=== PATIENT | female | born 1945 | race African-American/Black ===

== ENCOUNTER 2017-08-13 08:42 | Observation (INO) | payer OTHER ==
[~2017-08-13] VITALS: Ht 167.6 cm; Wt 89.8 kg
[~2017-08-13 08:42] MED LIST: ACETAMINOPHEN325 M1 PO; AMITIZA24 MCG PO; ATENOLOL25 MG PO; ATENOLOL50 MG PO; ATORVASTATIN CA20 MG PO; Aspirin PO; BENTYL10 MG PO; CATAPRES-TTS 21 EACH PO; COZAAR100 MG PO; CYMBALTA30 MG PO; ESIDRIX25 MG PO; FUROSEMIDE40 MG PO; GABAPENTIN300 MG PO; GABAPENTIN600 MG PO; HEMOCYTE PLUS1 EACH PO; HYDROCHLOROTHIA25 MG PO; HYDROCODON-ACE1 EA12 PO; ISOSORBIDE MONO30 MG PO; K DUR10 MEQ PO; LASIX40 MG PO; LINZESS PO; LIPITOR20 MG PO; LOSARTAN POTAS100 MG PO; LOVENOX60 MG/0.6 SC; MELOXICAM7.5 MG PO; METOCLOPRAMIDE10 MG PO; MORPHINE SULFA100 MG PO; NAPROXEN500 MG PO; OMEPRAZOLE40 MG PO; ONDANSETRON HCL8 MG PO; POTASSIUM CHLO10 ME1 PO; POTASSIUM CHLO10 MEQ PO; TRAMADOL HCL50 M1 PO; TRAZODONE HCL50 MG PO; VALACYCLOVIR1000 MG PO; Z RANITIDINE HCL PO; Z.0.ACYCLOVIR400 MG PO; Z.0.GABAPENTIN300 MG PO; Z.0.ISOSORBIDE MONO3 PO; Z.0.METOPROLOL SUCC5 PO; Z.0.SERTRALINE HCL10 PO; Z.0.SIMVASTATIN80 MG PO; Z.1.TIZANIDINE HCL4 PO; ZOFRAN ODT4 MG PO
--- OUTSIDE RECORDS SUMMARY | 2017-08-13 08:47 | XMS REPORT ---
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 Active Not available atorvastatin 40 mg tablet TAKE ONE TABLET BY MOUTH ONCE A DAY. Active Not available ciprofloxacin 500 mg tablet Completed 02/12/2016 clindamycin HCl 150 mg capsule Completed 02/12/2016 clotrimazole 1 % topical cream Completed 10/18/2016 Clotrimazole-3 2 % vaginal cream Insert 1 applicatorful every day by vaginal route at bedtime for 3 days. Completed 10/18/2016 dicyclomine 10 mg capsule Completed 12/06/2016 01/19/2017 furosemide 20 mg tablet Completed 03/11/2016 furosemide 40 mg tablet TAKE ONE TABLET BY MOUTH EVERY MORNING. Active Not available gabapentin 600 mg tablet Completed 07/03/2017 hydrochlorothiazide 25 mg tablet Completed 03/11/2016 hydrocodone 7.5 mg-acetaminophen 325 mg tablet Completed 02/12/2016 isosorbide mononitrate ER 30 mg tablet,extended release 24 hr Active Not available Lidocaine Viscous 2 % mucosal solution Active Not available Linzess 145 mcg capsule TAKE ONE CAPSULE BY MOUTHEVERY DAY. Active Not available loperamide 2 mg capsule Completed 07/03/2017 loperamide 2 mg tablet Take 2 tablets 3 times a day by oral route as needed for 10 days. Completed 05/19/2016 losartan 100 mg tablet TAKE ONE TABLET BY MOUTH ONCE A DAY. Active Not available meloxicam 15 mg tablet Completed 03/11/2016 methylprednisolone 4 mg tablets in a dose pack Completed 02/12/2016 metoprolol succinate ER 50 mg tablet,extended release 24 hr Take 1 tablet every day by oral route at bedtime for 90 days. Completed morphine ER 100 mg tablet,extended release Active Not available Movantik 25 mg tablet Completed 01/19/2017 naproxen 500 mg tablet Completed 03/11/2016 nitrofurantoin monohydrate/macrocrystals 100 mg capsule Completed 2016 omeprazole 40 mg capsule,delayed release Take 1 capsule every day by oral route for 90 days. Active Not available ondansetron HCl 4 mg tablet Completed 02/12/2016 ondansetron HCl 8 mg tablet Completed 02/12/2016 polyethylene glycol 3350 17 gram/dose oral powder Active Not available potassium chloride ER 10 mEq tablet,extended release Active Not available promethazine-DM 6.25 mg-15 mg/5 mL syrup take 1 or 2 tsp every 6 hours as needed for cough Completed 07/03/2017 silver sulfadiazine 1 % topical cream Completed 03/11/2016 sulfamethoxazole 400 mg-trimethoprim 80 mg tablet Completed 02/12/2016 terconazole 0.8 % vaginal cream Completed 10/18/2016 trazodone 100 mg tablet Active Not available trazodone 150 mg tablet Completed 02/12/2016 trazodone 50 mg tablet Active Not available TriLyte With Flavor Packets 420 gram oral solution Completed 12/06/2016 Tylenol Arthritis Pain 650 mg tablet,extended release Take 2 tablets every 8 hours by oral route for 7 days. Completed 2016 valacyclovir 1 gram tablet Completed 03/01/2016 valacyclovir 500 mg tablet Active Not available Problems Name Status Onset Date Source Pure Hypercholesterolemia Active 01/06/2015 History Alpha Trait Thalassemia Active 01/06/2015 History Hypertensive Heart Disease Active 01/06/2015 History Temporomandibular Joint Disorder Active 01/06/2015 History Gastroesophageal Reflux Disease without Esophagitis Active 01/06/2015 History Constipation Active 01/06/2015 History Idiopathic Osteoarthritis Active 04/14/2015 History Screening for Disorder Unknown 04/14/2015 History Pain in Right Knee Unknown 04/14/2015 History History of Total Knee Arthroplasty Active 08/18/2015 History Herpesvirus Infection Active 03/01/2016 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 Simple Renal Cyst Active 04/22/2016 Decreased Blood Leukocyte Number Active 05/20/2016 Body Mass Index 30+ - Obesity Unknown 10/18/2016 Procedures Date Name Performed by Carpal Tunnel Surgery Information not available Cataract Surgery Complex Information not available Cholecystectomy Information not available Hysterectomy (Total) Information not available 05/19/2016 Bone Density [facility] [address] [place] [address] (Work Place) 05/19/2016 MAMMO, Screening, Bilateral HamerZAPITANO ([facility]) [address] [place] [address] (Work Place) Lab Results Date Name Specimen Result Interpretation Description Value Range Status Address 01/19/2017 Lipid Panel, Serum Normal Cholesterol, Total 177 mg/dL <200 mg/dL Final [facility]: [address] We[address] Normal HDL Cholesterol 79 mg/dL >50 mg/dL Final [facility]: [address] qu[address] Normal Triglycerides 64 mg/dL <150 mg/dL Final [facility]: [address] Normal LDL-cholesterol 84 mg/dL (calc) Final [facility]: [address] Normal Chol/hdlc Ratio 2.2 (calc) <5.0 (calc) Final [facility]: [address] qu[address] Normal Non HDL Cholesterol 98 mg/dL (calc) <130 mg/dL (calc) Final [facility]: [address] Padmini Vicente [address] [place] [address] 01/19/2017 CMP, Serum or Plasma High Glucose 101 mg/dL 65-99 mg/ dL Final [facility]: [address] quinton [address] Normal Urea Nitrogen (BUN) 15 mg/dL 7-25 mg/dL Final [facility]: [address] High Creatinine 1.06 mg/dL 0.60-0.93 mg/dL Final [facility]: [address] Low eGFR Non-afr. Citizen Of [place] 52 mL/min/1.73m2 > or=60 mL/min/ 1.73m2 Final [facility]: [address] qu[address] Normal eGFR 60 mL/min/1.73m2 > or=60 mL/min/ 1.73m2 Final [facility]: [address] [place] Normal BUN/creatinine Ratio 14 (calc) 6-22 (calc) Final [facility]: [address] Valentine, [place] Normal Sodium 145 mmol/L 135-146 mmol/L Final [facility] [facility] Potassium 3.6 mmol/L 3.5-5.3 mmol/L Final [facility]: [address] [facility] Chloride 107 mmol/L 98-110 mmol/L Final [facility]: [address] [facility] Carbon Dioxide 30 mmol/L 20-31 mmol/L Final [facility]: [address] [facility] Calcium 9.5 mg/dL 8.6-10.4 mg/dL Final [facility]: [address] [facility] Protein, Total 6.7 g/dL 6.1-8.1 g/dL Final [facility] [address] [facility] Albumin 4.0 g/dL 3.6-5.1 g/dL Final [facility] [address] [facility] Globulin 2.7 g/dL (calc) 1.9-3.7 g/dL (calc) Final [facility] [address] [facility] Albumin/globulin Ratio 1.5 (calc) 1.0-2.5 (calc) Final [facility]: [address] [facility] Bilirubin, Total 0.7 mg/dL 0.2-1.2 mg/dL Final [facility]: [address] [facility] Alkaline Phosphatase 85 U/L 33-130 U/L Final [facility]: [address] [facility] Normal Ast 18 U/L 10-35 U/L Final [facility]: [address] [facility] Normal Alt 16 U/L 6-29 U/L Final [facility]: [address] Padmin[address] Valentine [place] 01/19/2017 CBC W/ Auto Diff Low White Blood Cell Count 3.1 thousand /uL 3.8-10.8 thousand/uL Final [facility]: [address] Normal Red Blood Cell Count 4.22 million/uL 3.80-5.10 million/ uL Final [facility]: [address] Low Hemoglobin 10.2 g/dL 11.7-15.5 g/dL Final [facility]: [address] Low Hematocrit 34.3 % 35.0-45.0 % Final [facility]: [address] Normal Mcv 81.3 fL 80.0-100.0 fL Final [facility]: [address] Padmini Valentine, [place] Low Mch 24.2 pg 27.0-33.0 pg Final [facility]: [address] Padmini Valentine, [place] Low Mchc 29.7 g/dL 32.0-36.0 g/dL Final [facility]: [address] Normal Rdw 13.4 % 11.0-15.0 % Final [facility]: [address] Normal Platelet Count 156 thousand/uL 140-400 thousand/uL Final [facility]: [address] Normal Mpv 11.8 fL 7.5-12.5 fL Final [facility]: [address] Normal Absolute Neutrophils 1869 cells/uL 2493-5435 cells/uL Final [facility]: [address] Normal Absolute Lymphocytes 942 cells/uL 850-3900 cells/uL Final [facility]: [address] Normal Absolute Monocytes 260 cells/uL 200-950 cells/uL Final [facility]: [address] Padmini Valentine [place] Absolute Eosinophils 9 cells/uL 15-500 cells/uL Final [facility]: [address] Padmin[address] Valentine [place] Normal Absolute Basophils 19 cells/uL 0-200 cells/uL Final [facility]: [address] Normal Neutrophils 60.3 % Final [facility]: [address] Normal Lymphocytes 30.4 % Final [facility]: [address] Padmin[address] Valentine [place] Normal Monocytes 8.4 % Final [facility]: [address] Padmin[address] quinton [place] [address], [place] Normal Eosinophils 0.3 % Final [facility]: [address] Padmin[address] quinton [place] [address], [place] Normal Basophils 0.6 % Final [facility]: [address] Padmin[address] We[address] [place] [address], [place] 09/21/2016 Culture, Urine ABNORMAL Culture, Urine, Routine Final [facility]: [address] [place] [address], [place] Lipid Panel, Serum Normal Cholesterol, Total 164 mg/dL 125-200 mg/dL Final [facility]: [address], [place] Normal HDL Cholesterol 75 mg/dL > or=46 mg/dL Final [facility]: [address], [place] Normal Triglycerides 77 mg/dL <150 mg/dL Final [facility]: [address], [place] Normal LDL-cholesterol 74 mg/dL (calc) <130 mg/dL (calc) Final [facility]: [address], [place] Normal Chol/hdlc Ratio 2.2 (calc) < or=5.0 (calc) Final [facility]: [address], [place] Normal Non HDL Cholesterol 89 mg/dL (calc) Final [facility]: [address], [place] CMP, Serum or Plasma High Glucose 105 mg/dL 65-99 mg/dL Final [facility]: [address], [place] Normal Urea Nitrogen (BUN) 12 mg/dL 7-25 mg/dL Final [facility]: [address], [place] High Creatinine 0.97 mg/dL 0.60-0.93 mg/dL Final [facility]: [address], [place] Low eGFR Non-afr. Citizen Of [place] 58 mL/min/1.73m2 > or=60 mL/min/ 1.73m2 Final [facility]: [address], [place] Normal eGFR 68 mL/min/1.73m2 > or=60 mL/min/ 1.73m2 Final [facility]: [address], [place] Normal BUN/creatinine Ratio 12 (calc) 6-22 (calc) Final [facility]: [address], [place] Normal Sodium 141 mmol/L 135-146 mmol/L Final [facility]: [address] [place] Normal Potassium 4.6 mmol/L 3.5-5.3 mmol/L Final [facility]: [address], [place] Normal Chloride 102 mmol/L 98-110 mmol/L [facility]: [address] [facility], [place] Normal Carbon Dioxide 30 mmol/L 20-31 mmol/L Final [facility]: [address] [facility], [place] Normal Calcium 9.4 mg/dL 8.6-10.4 mg/dL Final [facility]: [address] [facility], [place] Normal Protein, Total 7.1 g/dL 6.1-8.1 g/dL Final [facility]: [address], [place] Normal Albumin 4.1 g/dL 3.6-5.1 g/dL [facility]: [address] [place] [address], [place] Normal Globulin 3.0 g/dL (calc) 1.9-3.7 g/dL (calc) Final [facility]: [address] [place] [address], [place] Normal Albumin/globulin Ratio 1.4 (calc) 1.0-2.5 (calc) [facility]: [address] [facility], [place] Normal Bilirubin, Total 0.6 mg/dL 0.2-1.2 mg/dL [facility]: [address] [place] [address], [place] Normal Alkaline Phosphatase 85 U/L 33-130 U/L Final [facility]: [address] [place] [address], [place] Normal Ast 14 U/L 10-35 U/L [facility]: [address] [place] [address], [place] Normal Alt 8 U/L 6-29 U/L [facility]: [address] [facility], [place] CBC W/ Auto Diff Low White Blood Cell Count 3.2 thousand/uL 3.8- 10.8 thousand/uL Final [facility]: [address] [place] [address], [place] Normal Red Blood Cell Count 4.34 million/uL 3.80-5.10 million/ uL Final [facility]: [address], [place] Low Hemoglobin 10.4 g/dL 11.7-15.5 g/dL Final [facility]: [address], [place] Low Hematocrit 33.5 % 35.0-45.0 % Final [facility]: [address], [place] Low Mcv 77.1 fL 80.0-100.0 fL Final [facility]: [address], [place] Low Mch 23.9 pg 27.0-33.0 pg Final [facility]: [address], [place] Low Mchc 31.0 g/dL 32.0-36.0 g/dL Final [facility]: [address], [place] High Rdw 17.5 % 11.0-15.0 % Final [facility]: [address], [place] Normal Platelet Count 145 thousand/uL 140-400 thousand/uL Final [facility]: [address], [place] Normal Mpv 10.1 fL 7.5-12.5 fL Final [facility]: [address], [place] Normal Absolute Neutrophils 1917 cells/uL 9077-7386 cells/uL Final [facility]: [address], [place] Normal Absolute Lymphocytes 938 cells/uL 850-3900 cells/uL Final [facility]: [address], [place] Normal Absolute Monocytes 330 cells/uL 200-950 cells/uL Final [facility]: [address], [place] Normal Absolute Eosinophils 16 cells/uL 15-500 cells/uL Final [facility]: [address], [place] Normal Absolute Basophils 0 cells/uL 0-200 cells/uL Final [facility]: [address], [place] Normal Neutrophils 59.9 % Final [facility]: [address], [place] Normal Lymphocytes 29.3 % Final [facility]: [address], [place] Normal Monocytes 10.3 % Final [facility]: [address], [place] Normal Eosinophils 0.5 % Final [facility]: [address], [place] Normal Basophils 0.0 % Final [facility]: [address], [place] T4, Total, Serum Normal T4 (Thyroxine), Total 8.2 mcg/dL 4.5- 12.0 mcg/dL Final [facility] Lab: [address] [facility], [place] TSH, Serum or Plasma Normal Tsh 1.12 mIU/L 0.40-4.50 mIU/L Final [facility] Lab: [address], [place] Urinalysis, Dipstick Color Color dark yellow [facility]: [address] [facility] [address], [place] Color Appearance cloudy [facility]: [address] [facility] [address], [place] Color Glucose negative [facility]: [address] [facility] [address], [place] Color Bilirubin negative [facility]: [address] [facility] [address], [place] Color Ketones negative [facility]: [address] [facility] [address], [place] Color Specific [place] 1.030 [facility]: [address] [facility] [address], [place] Color Blood moderate [facility]: [address] [facility] [address], [place] Color PH 5.5 [facility]: [address] [facility] [address], [place] Color Protein 300 [facility]: [address] [facility] [address], [place] Color Urobilinogen 0.2 [facility]: [address] [facility] [address], [place] Color Nitrites negative [facility]: [address] [facility] [address], [place] Color Leukocytes small [facility]: [address] [facility] [address], [place] Color Note [facility]: [address] [facility] [address], [place] Past Encounters 07/03/2017 Hypertensive Heart Disease; Gastroesophageal Reflux Disease without Esophagitis ; Pure Hypercholesterolemia; Pneumococcal Vaccination; Constipation; Dependent Edema PABLITO Kim: [address] [facility], [address] [address], Ph. 03/28/2017 Body Mass Index 30+ - Obesity; Hypertensive Heart Disease; Temporomandibular Joint Disorder; Diarrhea; Gastroesophageal Reflux Disease without Esophagitis; Insomnia Disorder Related to Known Organic Factor; Herpesvirus Infection; Aphthous Ulcer of Mouth; Pure Hypercholesterolemia; Constipation; Opioid Dependence; Bilateral Atherosclerosis of Arteries of Lower Limbs; Common Cold Silvano Raya MD: [address] [facility], [address] [address], Ph. 01/19/2017 Hypertensive Heart Disease; Pure Hypercholesterolemia; Diarrhea; Gastroesophageal Reflux Disease without Esophagitis; Aphthous Ulcer of Mouth; Insomnia Disorder Related to Known Organic Factor; Immunization; Constipation JORGE Parikh: [address] [address], Ph. [phone] 12/06/2016 Temporomandibular Joint Disorder; Drug-induced Constipation PABLITO Ramirez: [address] [address], Ph. 10/18/2016 Temporomandibular Joint Disorder; Body Mass Index 30+ - Obesity; Constipation Silvano Raya MD: [address] [address], Ph. 09/21/2016 Candidiasis of Vagina; Aphthous Ulcer of Mouth; Dysuria JORGE Parikh: [address] [address], Ph. [phone] 08/08/2016 Diarrhea Silvano Raya MD: [address] [address], Ph. 07/20/2016 Hypertensive Heart Disease; Pure Hypercholesterolemia; Temporomandibular Joint Disorder; Pain in Right Knee; Insomnia Disorder Related to Known Organic Factor ; Drug-induced Constipation Silvano Raya MD: [address] [address], Ph. 07/05/2016 Hypertensive Heart Disease; Pure Hypercholesterolemia; Temporomandibular Joint Disorder JORGE Parikh: [address] [address], Ph. [phone] 07/01/2016 Filippo Higuerat: [address] [address], Ph. 05/25/2016 Filippo Higuerat: [address] [address], Ph. 05/20/2016 Emma Raya: 9055 [facility], [place] [address], [place] [address], Ph. 05/19/2016 Adult Health Examination; Chronic Constipation; Temporomandibular Joint Disorder ; Anemia; Hypertensive Heart Disease; Pain in Right Knee; History of Total Knee Arthroplasty; Alpha Trait Thalassemia; Gastroesophageal Reflux Disease without Esophagitis; Insomnia Disorder Related to Known Organic Factor; Idiopathic Osteoarthritis; Pure Hypercholesterolemia; Neoplasm of Adrenal Gland; Screening for Osteoporosis; Screening for Malignant Neoplasm of Breast; Advance Directive Discussed with Patient; Body Mass Index 25-29 - Overweight Silvano Raya MD: [address] [address], Ph. 05/09/2016 Follow-up Visit; Gastroesophageal Reflux Disease without Esophagitis; Chronic Constipation; Diarrhea Silvano Raya MD: [address]8119 [facility], [address] [address], Ph. 05/06/2016 Emma Raya: 9055 [facility], [address] [address], Ph. [phone] 04/21/2016 Pain in Right Knee; Opioid Dependence PABLITO Ramirez: [address] [facility], [address] [address], Ph. 03/11/2016 Impacted Cerumen; Screening Colonoscopy PABLITO Ramirez: [address] [facility], [address] [address], Ph. 03/01/2016 Follow-up Visit; Herpesvirus Infection Silvano Raya MD: 33759 [facility], [address] [address], Ph. 02/26/2016 Emma Raya: [address] [address], Ph. [phone] 02/19/2016 Temporomandibular Joint Disorder Peter Jaime MD: 94498 [facility], [address] [address], Ph. 02/12/2016 Posttreatment Pain; Hypertensive Heart Disease; History of Total Knee Arthroplasty; Pruritic Rash Reina GordonJACIELP: [address] [facility], [address], [place] [address], Ph. Social History Smoking Status Never Smoker Vaccine List Vaccine Type influenza, high dose seasonal 01/19/20170.5 mL influenza, injectable, quadrivalent 12/14/2015 influenza, seasonal, injectable 12/16/2013 12/12/2014 Plan of Care Patient Instructions It was good to see you in the office today for your Medicare Annual Wellness Visit. You have been provided some information on healthy nutrition, including a diet rich in fruits and vegetables, minimizing simple carbohydrates, salt, and saturated fats. I want to encourage regular cardiovascular exercise such as walking at least 30 minutes daily, 5 times per week. Please remember to schedule any preventive health measures that we talked about today. You have also been provided education on fall prevention and community- based lifestyle interventions to help reduce health risks and promote healthy living in your [employer] folder. 05/06/2016-Called patient on [phone] and [phone] and LVM to return call to office. Advised patient to call office if she has any fever, n/v, diarrhea, diaphoresis , abdominal pain, dizziness, weakness, or fatique. Reminders Provider Appointments None recorded. Lab None recorded. Referral None recorded. Procedures None recorded. Surgeries None recorded. Imaging None recorded. Vitals 07/03/2017 11:30AM Est Patient Height Weight BMI Blood Pressure 5 ft 6 in 189 lbs 30.5 kg/m2 123/63 mm[Hg] 03/28/2017 09:15AM Est Patient Height Weight BMI Blood Pressure 5 ft 6 in 204 lbs 32.9 kg/m2 126/72 mm[Hg] 01/19/2017 10:00AM Est Patient Height Weight BMI Blood Pressure 5 ft 6 in 204.2 lbs 33 kg/m2 (1) 154/82 mm[Hg] (2) 159/88 mm[Hg] 12/06/2016 02:30PM Est Patient Height Weight BMI Blood Pressure 5 ft 6 in 199.2 lbs 32.2 kg/m2 110/64 mm[Hg] 10/18/2016 09:30AM Est Patient Height Weight BMI Blood Pressure 5 ft 6 in 197.8 lbs 31.9 kg/m2 152/87 mm[Hg] 09/21/2016 03:00PM Est Patient Height Weight BMI Blood Pressure 5 ft 10 in 200 lbs 28.7 kg/m2 121/67 mm[Hg] 07/20/2016 04:15PM Est Patient Height Weight BMI Blood Pressure 5 ft 10 in 198.8 lbs 28.5 kg/m2 144/81 mm[Hg] 07/05/2016 09:00AM Est Patient Height Weight BMI Blood Pressure 5 ft 10 in 202.4 lbs 29 kg/m2 144/72 mm[Hg] 05/19/2016 10:00AM LEAD SUSTAINABILITY SPECIALIST/EST CPX Height Weight BMI Blood Pressure 5 ft 10 in 204.2 lbs 29.3 kg/m2 126/76 mm[Hg] 05/09/2016 09:00AM TCM - High Risk Height Weight BMI Blood Pressure 5 ft 10 in 204.8 lbs 29.4 kg/m2 153/73 mm[Hg] 04/21/2016 09:15AM Est Patient Height Weight BMI Blood Pressure 5 ft 10 in 210 lbs 30.1 kg/m2 154/73 mm[Hg] 03/11/2016 10:00AM Est Patient Height Weight BMI Blood Pressure 5 ft 10 in 210 lbs 30.1 kg/m2 135/66 mm[Hg] 03/01/2016 02:00PM TCM - High Risk Height Weight BMI Blood Pressure 5 ft 10 in 205.8 lbs 29.5 kg/m2 123/61 mm[Hg] 02/19/2016 08:30AM Est Patient Height Weight BMI Blood Pressure 5 ft 10 in 208.6 lbs 29.9 kg/m2 136/65 mm[Hg] 02/12/2016 09:00AM Est Patient Height Weight BMI Blood Pressure 5 ft 10 in 207 lbs 29.7 kg/m2 142/72 mm[Hg] 08/18/2015 Height Weight BMI Blood Pressure 5 ft 10 in 222 lbs 31.85 kg/m2 116/70 mm[Hg] 07/07/2015 Height Weight BMI 5 ft 10 in 228.6 lbs 32.80 kg/m2 07/07/2015 Blood Pressure 111/59 mm[Hg] 06/18/2015 Height Weight BMI Blood Pressure 5 ft 10 in 231.2 lbs 33.17 kg/m2 139/68 mm[Hg] 06/09/2015 Height Weight BMI Blood Pressure 5 ft 10 in 236.41 lbs 33.92 kg/m2 124/72 mm[Hg] 05/20/2015 Height Weight BMI Blood Pressure 5 ft 10 in 236.4 lbs 33.92 kg/m2 127/71 mm[Hg] 04/14/2015 Height Weight BMI Blood Pressure 5 ft 10 in 235 lbs 33.72 kg/m2 120/60 mm[Hg] 03/25/2015 Height Weight BMI Blood Pressure 5 ft 10 in 238.6 lbs 34.23 kg/m2 137/73 mm[Hg] 03/17/2015 Height Weight BMI Blood Pressure 5 ft 10 in 244 lbs 35.01 kg/m2 132/73 mm[Hg] 03/09/2015 Height Weight BMI Blood Pressure 5 ft 10 in 244.2 lbs 35.04 kg/m2 124/58 mm[Hg] 02/16/2015 Height Weight BMI Blood Pressure 5 ft 10 in 239.2 lbs 34.32 kg/m2 130/76 mm[Hg] 01/06/2015 Height Weight BMI Blood Pressure 5 ft 10 in 245.4 lbs 35.21 kg/m2 132/71 mm[Hg] 12/12/2014 Height Weight BMI Blood Pressure 5 ft 10 in 249.4 lbs 35.78 kg/m2 126/78 mm[Hg] 11/11/2014 Height Weight BMI Blood Pressure 5 ft 10 in 248.6 lbs 35.67 kg/m2 140/80 mm[Hg] 10/08/2014 Height Weight BMI Blood Pressure 5 ft 10 in 249.2 lbs 35.75 kg/m2 138/64 mm[Hg] 09/02/2014 Height Weight BMI Blood Pressure 5 ft 10 in 255.6 lbs 36.67 kg/m2 130/60 mm[Hg] 07/10/2014 Height Weight BMI Blood Pressure 5 ft 10 in 260 lbs 37.30 kg/m2 130/74 mm[Hg] 06/11/2014 Height Weight BMI Blood Pressure 5 ft 10 in 255.2 lbs 36.61 kg/m2 140/80 mm[Hg] 05/12/2014 Height Weight Blood Pressure 5 ft 10 in 266 lbs 140/62 mm[Hg] 05/12/2014 BMI 38.16 kg/m2 04/29/2014 Height Weight BMI Blood Pressure 5 ft 10 in 259.6 lbs 37.24 kg/m2 140/70 mm[Hg] 04/02/2014 Height Weight BMI Blood Pressure 5 ft 10 in 265.4 lbs 38.08 kg/m2 128/78 mm[Hg] 02/18/2014 Height Weight BMI Blood Pressure 5 ft 10 in 266 lbs 38.16 kg/m2 130/80 mm[Hg] 12/16/2013 Height Weight BMI Blood Pressure 5 ft 10 in 265.4 lbs 38.08 kg/m2 130/60 mm[Hg] 10/31/2013 Height Weight 5 ft 10 in 262.2 lbs 07/31/2013 Height Weight 5 ft 10 in 271 lbs 06/24/2013 Height Weight 5 ft 10 in 271 lbs 05/31/2013 Height Weight 5 ft 10 in 268.4 lbs 04/01/2013 Height Weight 5 ft 10 in 268.2 lbs 03/01/2013 Height Weight 5 ft 10 in 270.8 lbs
[2017-08-13] MEDS ORDERED: SODIUM CHLORIDE 0.9% 1000ML 1,000 ML IV STA (09:56)
[2017-08-13] MEDS ORDERED: ONDANSETRON HCL 4 MG ORAL DISINTEGRATING TAB PO ONE (10:00)
[2017-08-13] MEDS ORDERED: KETOROLAC TROMETHAMINE 30 MG/ML VIAL IV NR (10:00)
[2017-08-13 10:11] LABS: CLARITY,URINE SL CLOUDY (CLEAR); COLOR,URINE YELLOW (YELLOW); KETONES,URINE TRACE (NEGATIVE); LEUKOCYTE ESTERASE ,URINE TRACE (NEGATIVE); NITRITE,URINE NEGATIVE (NEGATIVE); PROTEIN,URINE DIPSTICK 2+ (NEGATIVE); URINE UROBILINOGEN 0.2 mg/dL (0.2 - 1)
[2017-08-13 10:12] LABS: BILIRUBIN,URINE 1+ (NEGATIVE)
[2017-08-13 10:31] LABS: BACTERIA,URINE FEW /HPF; EPITHELIAL CELLS,URINE FEW /LPF; RBC,URINE 0-5 /HPF (0-5)
[2017-08-13 10:31] LABS: ALANINE AMINOTRANSFERASE 13 IU/L (0-55); ALBUMIN 3.9 g/dL (3.5-5.0); ALBUMIN/GLOBULIN RATIO 1.3 (0.8-2.0); ALKALINE PHOSPHATASE 72 IU/L (40-150); AMYLASE 53 U/L (25-125); ANION GAP 14.9 mmol/L (8-16); BLOOD UREA NITROGEN 14 mg/dL (7-26); BUN/CREATININE RATIO 13 (6-25); CALCIUM 9.4 mg/dL (8.4-10.2); CARBON DIOXIDE 24 mmol/L (22-29); CHLORIDE 110 mmol/L (98-107); CREATINE KINASE 135 IU/L (29-168); CREATININE, SERUM 1.04 mg/dL (0.57-1.11); EST GLOMERULAR FILTRATION RATE > 60 ML/MIN (60-); GLUCOSE 99 mg/dL (74-118); LIPASE 27 U/L (8-78); SODIUM 146 mmol/L (136-145)
[2017-08-13 10:34] LABS: POTASSIUM 2.9 mmol/L (3.5-5.1)
[2017-08-13 10:41] LABS: BASOPHILS % 0.4 % (0.0-1.0); HEMATOCRIT 34.6 % (34.2-44.1); HEMOGLOBIN 10.5 g/dL (12.0-16.0); LYMPHOCYTES # (AUTO) 0.8 (1.0-3.2); LYMPHOCYTES % 18.1 % (18.0-39.1); MEAN CORPUSCULAR HEMOGLOBIN 24.5 pg (28-32); MEAN CORPUSCULAR HGB CONC 30.3 g/dL (31-35); MEAN CORPUSCULAR VOLUME 80.7 fL (81-99); MONOCYTES # (AUTO) 0.5 (0.2-0.8); NEUTROPHILS # (AUTO) 3.1 (2.1-6.9); NEUTROPHILS % 70.3 % (38.7-80.0); PLATELET COUNT 146 x10e3/uL (140-360); RED BLOOD COUNT 4.29 x10e6/uL (3.6-5.1); RED CELL DISTRIBUTION WIDTH 14.9 % (11.7-14.4)
[2017-08-13] MEDS ORDERED: POTASSIUM CHLORIDE 20MEQ/15ML UDC PO NR (11:00)
[2017-08-13] MEDS ORDERED: CEFTRIAXONE SOD 1 GM VIAL IV ONE (11:00)
[2017-08-13] MEDS ORDERED: MORPHINE SULFATE 2 MG/ML SYR IV STA (11:27)
--- NOTE | 2017-08-13 12:12 | Diagnostic Imaging Report ---
Acute Abdominal Series CPT CODE: 94253 INDICATION: Abdominal pain, nausea, diarrhea. COMPARISON: Obstructive series 04/27/2016. FINDINGS: Single view of the chest shows mild stable cardiomegaly. No mass or infiltrate. Supine and erect views of the abdomen show unremarkable bowel gas pattern. The stomach is distended with fluid but not dilated. No dilated small bowel loops or air-fluid levels. No pneumatosis. Cholecystectomy clips are present. No evidence of free air. Calcifications in the medial right lower quadrant and pelvis are stable and likely vascular. Degenerative changes of the spine are stable. No focal osseous lesions. IMPRESSION: 1. Fluid distention of the stomach and unremarkable small bowel and large bowel gas pattern. This could be the result of gastroenteritis. Please correlate for history of gastroparesis. 2. Mild and stable cardiomegaly. Clear lungs. 3. Cholecystectomy. Signed by: Dr. Elen Pete MD on 08/13/2017 12:09 PM
[2017-08-13] MEDS ORDERED: POTASSIUM CHLORIDE 10MEQ/100ML 10 MEQ in POTASSIUM CHLORIDE 10MEQ/100ML 100 ML IV ONE (13:04)
[2017-08-13] MEDS ORDERED: ONDANSETRON HCL 4 MG ORAL DISINTEGRATING TAB SL PRN (13:30)
[2017-08-13] MEDS: POTASSIUM CHLORIDE 10MEQ/100ML 100 ML IV NR ×2 (13:46→17:17)
--- OUTSIDE RECORDS SUMMARY | 2017-08-13 14:28 | XMS REPORT ---
Author Author [facility] Address Unknown Phone Unavailable Care Team Providers Care [employer] Operations Manager Name Role Phone AYAN VIDAL Unavailable Unavailable Problems This patient has no known problems. Allergies, Adverse Reactions, Alerts This patient has no known allergies or adverse reactions. Medications This patient has no known medications. Results Test Description Test Time Test Comments Text Results Atomic Results Result Comments ABDOMEN ACUTE SERIES W/PA CXR [place] [address] Patient Name: LINO HUNT MR #: [id number] : 1945 Age/Sex: 71/F Req #: [id number] Adm Physician: Ordered by: AYAN VIDAL MD Report #: [id number] Location: ER Room/Bed: Procedure: [id number] DX/ABDOMEN ACUTE SERIES W/PA CXR Exam Date: 08/13/17 Exam Time: 1150 REPORT STATUS: Signed Acute Abdominal Series CPT CODE: 04658 INDICATION: Abdominal pain, nausea, diarrhea. COMPARISON: Obstructive series 04/27/2016. FINDINGS: Single view of the chest shows mild stable cardiomegaly. No mass or infiltrate. Supine and erect views of the abdomen show unremarkable bowel gas pattern. The stomach is distended with fluid but not dilated. No dilated small bowel loops or air-fluid levels. No pneumatosis. Cholecystectomy clips are present. No evidence of free air. Calcifications in the medial right lower quadrant and pelvis are stable and likely vascular. Degenerative changes of the spine are stable. No focal osseous lesions. IMPRESSION: 1. Fluid distention of the stomach and unremarkable small bowel and large bowel gas pattern. This could be the result of gastroenteritis. Please correlate for history of gastroparesis. 2. Mild and stable cardiomegaly. Clear lungs. 3. Cholecystectomy. Signed by: Dr. Efrain Pete MD on 08/13/2017 12:09 PM Dictated By: EFRAIN PETE MD 1209 Transcribed By: EMMA on 1208 COPY TO: AYAN VIDAL MD
[2017-08-13] MEDS ORDERED: FUROSEMIDE40 MG PO (15:02)
[2017-08-13] MEDS ORDERED: linzess PO (15:02)
[2017-08-13] MEDS ORDERED: TRAZODONE HCL50 MG PO (15:02)
[2017-08-13 15:14] VITALS: BP 172/67
[2017-08-13] MEDS: D5.45%NS/KCL 20MEQ 1,000 ML IV SCH (17:16)
[2017-08-13] MEDS: LOSARTAN POTASSIUM 100 MG TAB PO SCH (18:27)
[2017-08-13] MEDS: ISOSORBIDE MONONITRATE 30 MG TAB CR PO SCH (18:28)
[2017-08-13 20:00] VITALS: BP 139/69
[2017-08-13] MEDS: ATENOLOL 50 MG TAB PO SCH (20:52)
[2017-08-14] VITALS (8 sets, daily range): BP systolic 120–179; BP diastolic 54–72
[2017-08-14] MEDS: D5.45%NS/KCL 20MEQ 1,000 ML IV SCH ×2 (02:24→15:44)
[2017-08-14] MEDS: MORPHINE SULFATE 2 MG/ML SYR IV PRN ×4 (06:15→21:17)
[2017-08-14 06:39] LABS: BASOPHILS % 0.3 % (0.0-1.0); EOSINOPHILS % 0.5 % (0.0-6.0); HEMATOCRIT 28.7 % (34.2-44.1); HEMOGLOBIN 8.8 g/dL (12.0-16.0); LYMPHOCYTES # (AUTO) 1.2 (1.0-3.2); LYMPHOCYTES % 31.1 % (18.0-39.1); MEAN CORPUSCULAR HEMOGLOBIN 24.9 pg (28-32); MEAN CORPUSCULAR HGB CONC 30.7 g/dL (31-35); MEAN CORPUSCULAR VOLUME 81.1 fL (81-99); MONOCYTES # (AUTO) 0.5 (0.2-0.8); MONOCYTES % 13.3 % (4.4-11.3); NEUTROPHILS # (AUTO) 2.1 (2.1-6.9); NEUTROPHILS % 54.8 % (38.7-80.0); PLATELET COUNT 124 x10e3/uL (140-360); RED BLOOD COUNT 3.54 x10e6/uL (3.6-5.1); RED CELL DISTRIBUTION WIDTH 15.1 % (11.7-14.4)
[2017-08-14 07:07] LABS: ANION GAP 11.6 mmol/L (8-16); BLOOD UREA NITROGEN 14 mg/dL (7-26); BUN/CREATININE RATIO 16 (6-25); CALCIUM 8.4 mg/dL (8.4-10.2); CARBON DIOXIDE 23 mmol/L (22-29); CHLORIDE 113 mmol/L (98-107); CREATININE, SERUM 0.88 mg/dL (0.57-1.11); EST GLOMERULAR FILTRATION RATE > 60 ML/MIN (60-); GLUCOSE 99 mg/dL (74-118); POTASSIUM 3.6 mmol/L (3.5-5.1); SODIUM 144 mmol/L (136-145)
--- NOTE | 2017-08-14 09:23 | History and Physical ---
PCP: Dr. Dimitry Raya CONSULTING: Dr. Michael Lamas CHIEF COMPLAINT: Abdominal pain, diarrhea, nausea, and vomiting for the past 4-5 days. HISTORY: A 71-year-old female with history of IBS. Patient is anemic. Hemoglobin and hematocrit of 8.8 and 28.7. The patient is stable. She came in with a 4-day duration of off and on abdominal pain associated some diarrhea. Her potassium level was low on admission. It is replaced now. The patient is otherwise stable. Apparently, she was recommend to have EGD and colonoscopy, but she refused previously. The patient is anemic with abdominal pain. PAST MEDICAL HISTORY: Chronic anemia, IBS, osteoarthritis, hypertension, cataract, reflux, dyslipidemia. PAST SURGICAL HISTORY: Right knee replacement, cholecystectomy, hysterectomy, left jaw repair, cataract surgery, carpal tunnel surgery, toenail amputation, and bone spur of the foot with surgery. SOCIAL HISTORY: Patient does not smoke or use alcohol. No regular drugs. ALLERGIES: PENICILLIN AND KIWI. HOME MEDICATIONS: List reviewed. REVIEW OF SYSTEMS: As mentioned above. Nausea, vomiting and abdominal pain. PHYSICAL EXAMINATION VITAL SIGNS: Temperature is 98, blood pressure 163/67, pulse rate 58, respirations 20. GENERAL: Patient is not in acute distress. He is awake. HEENT: Normocephalic, atraumatic and anicteric. NECK: Supple grossly. PULMONARY: Diminished breath sounds. CARDIOVASCULAR: Regular rate and rhythm. ABDOMEN: Soft with positive tenderness, but no guarding or rebound tenderness. EXTREMITIES: No clubbing, cyanosis or edema. NEUROLOGIC: No gross focal deficit. LABORATORY: Sodium is 146, potassium 2.9, chloride 110, bicarb 24, BUN 14, creatinine 1, glucose 99. WBC is 4.45, hemoglobin 10.5 and now down to 8.8 after rehydration, hematocrit is 35 and now down to 28.7, and platelets are 146,000 to 124,000. Abdominal series shows possible ileus and small-bowel obstruction. IMPRESSION 1. There is abdominal pain associated with [id number] gastroenteritis: Abdominal series shows that the patient has fluid distention of the stomach. The small bowel and large bowel gas pattern unremarkable. Could be gastritis. Could be gastroparesis. Could be early small-bowel obstruction. 2. Electrolyte disorder. 3. Chronic anemia. 4. History of irritable bowel syndrome. 5. History of multiple other medical problems. PLAN: Consultation with Dr. Michael Lamas. CT of abdomen and pelvis with contrast. Home medications resumed. The patient will need endoscopy. Will check the patient's folic acid, B12, thyroid function test, magnesium, phosphorus, and iron profile with stool for occult blood. Job#: [id number] PAULETTE
[2017-08-14 09:40] LABS: THYROID STIMULATING HORMONE 1.04 uIU/mL (0.350-4.940)
[2017-08-14] MEDS: ISOSORBIDE MONONITRATE 30 MG TAB CR PO SCH (09:45)
[2017-08-14] MEDS: LOSARTAN POTASSIUM 100 MG TAB PO SCH (09:45)
[2017-08-14 10:00] LABS: FOLATE 6.6 ng/mL (7.0-15.4)
[2017-08-14] MEDS ORDERED: SODIUM CHLORIDE 0.9% 50ML 50 ML ONE (15:19)
[2017-08-14] MEDS ORDERED: IOPAMIDOL 370 MG/ML 200 ML INFUS..BTL INJ ONE (15:21)
--- NOTE | 2017-08-14 17:00 | Diagnostic Imaging Report ---
EXAM: CT Abdomen and Pelvis WITH contrast INDICATION: \S\ABD PAIN \S\[id number] \S\1511 COMPARISON: CT dated 02/22/2016 TECHNIQUE: Abdomen and pelvis were scanned utilizing a multidetector helical scanner from the lung base to the pubic symphysis after administration of IV contrast. Coronal and sagittal reformations were obtained. Routine protocol was performed. Scan was performed when during portal venous phase. IV CONTRAST: 100 mL of Isovue-370 ORAL CONTRAST: Water COMPLICATIONS: None RADIATION DOSE: Total DLP: 665.58 mGy*cm Estimated effective dose: (DLP x 0.015 x size factor) mSv CTDIvol has been reviewed. It is below the limits set by the Radiation Protocol Committee (RPC). FINDINGS: LINES and TUBES: None. LOWER THORAX: Small bilateral pleural effusions. HEPATOBILIARY: No focal hepatic lesions. No biliary ductal dilation. GALLBLADDER: Cholecystectomy. SPLEEN: No splenomegaly. PANCREAS: No focal masses or ductal dilatation. ADRENALS: Unchanged 2.8 x 2.4 cm right adrenal nodule. No left adrenal nodule. KIDNEYS/URETERS: Kidneys enhance symmetrically. No hydronephrosis. No renal mass. Unchanged bilateral renal cysts, measuring up to 1.5 cm. No stones. GI TRACT: No abnormal distention, wall thickening, or evidence of bowel obstruction. Appendix is not visualized with certainty. PELVIC ORGANS/BLADDER: Hysterectomy. Numerous pelvic phleboliths. LYMPH NODES: No lymphadenopathy. Calcified right lower quadrant mesenteric lymph nodes. VESSELS: Unremarkable. PERITONEUM / RETROPERITONEUM: No free air. Trace abdominal ascites which is slightly decreased from prior exam. BONES: Advanced degenerative changes of spine. Unchanged grade 1 anterolisthesis of L2 in relation to L1 and retrolisthesis of L5 in relation to L4. SOFT TISSUES: Unremarkable. Posterior left back subcutaneous calcifications, likely related to injections. IMPRESSION: 1. Small bilateral pleural effusions. 2. No definite evidence of acute inflammatory process in the abdomen/pelvis. 3. Trace abdominal ascites, slightly decreased from prior exam. 4. Stable right adrenal nodule. Signed by: Dr. Silvio Vance MD on 08/14/2017 4:56 PM
[2017-08-14] MEDS ORDERED: BISMUTH SUBSALICYLATE 262 MG TAB PO PRN (18:15)
--- NOTE | 2017-08-14 19:06 | Consultation ---
DATE OF CONSULTATION: August 14, 2017 HISTORY OF PRESENT ILLNESS: Ms. Degroot is a well known patient to me from office visit. She presented to [facility] ER with sudden complaint of severe nausea, but no vomiting and no fever. She was brought in where CT scan of the abdomen was done and revealed small pleural effusion, no acute abdominal findings, trace of abdominal ascites known to have from previous CT and stable renal nodule known also to have from previous CT. I was asked to see her for further evaluation. On talking to the patient, she denied vomiting, denied fever, denied heartburn, acid reflux, denied any trouble with her bowel. She used Linzess and she responded well. Denied any signs of GI bleeding. Denied any dysphagia. Her other complaint is subjective weight loss, feeling weak and tired and extreme gagging. Today, she is better. She is able to maintain liquid diet. She is still complaining of significant abdominal cramps. Looking at her records from my office, she had colonoscopy in February 2016 showing internal hemorrhoids and mild left colon diverticulosis, otherwise no findings. Upper endoscopy done also in February 2016 showed small hiatal hernia, negative Helicobacter gastritis. She had a CT enterography in April 2015 to evaluate her small bowel because of her anemia which revealed the right renal nodule which the patient on current CT continued to be stable. I have seen her in the office for anemia workup, which could not find an obvious reason. She had folate low, otherwise normal bilirubin, normal reticulocyte count, normal iron saturation. REVIEW OF SYSTEMS: Unremarkable. PAST MEDICAL HISTORY: Only for hypertension and increased lipids. PAST SURGICAL HISTORY: Total hysterectomy, laparoscopic cholecystectomy, foot surgery, knee surgery. FAMILY HISTORY: She thinks her mother had cancer, unclear of what type. ALLERGIES: PENICILLIN AND KIWI. MEDICATION WHILE IN HOSPITAL: Morphine, Cozaar, Imdur, Tenormin, Zofran and potassium chloride. PHYSICAL EXAMINATION GENERAL: She is awake and alert, oriented. VITAL SIGNS: Temperature 97.5, pulse 54, blood pressure 179/102. HEENT: Normal sclerae. NECK: Supple. LUNGS: Clear. HEART: Irregularly irregular, occasional irregular beat. ABDOMEN: Obese, soft, no acute sign, no mass. EXTREMITIES: No edema. CENTRAL NERVOUS SYSTEM: Motor function grossly intact. LABORATORY DATA: White cell count 3.8, hemoglobin 8.8, hematocrit 28, platelets 124,000. BUN 14, creatinine 0.88, sodium 144, potassium after replacement, came up to 3.6. Iron saturation normal. B12 normal. Folate low at 6.6. TSH normal. Total protein 7, albumin 3, liver function unremarkable. Urinalysis unremarkable. Blood culture is negative. IMPRESSION: I am not quite sure about the etiology of her nausea. It could be related to acid reflux. She denied non-steroidal anti-inflammatory drug. Other possible etiology may be she had a very mild diverticulitis that will explain her current abdominal pain, abdominal cramps. So far, she is doing well and tolerating liquid diet well. My only change in her management is to add acid pump inhibitor, and also give her Pepto-Bismol for her abdominal cramps. Will replace her folate. She may need at one point hematology consult for evaluation of her anemia, which as I said earlier, she had full GI workup back in 2015 that was unremarkable. We plan for the patient PillCam study, but she refused. When I saw her for followup in August 2016, she refused any additional GI workup. Will follow with you. Job#: [id number]
[2017-08-14] MEDS: ATENOLOL 50 MG TAB PO SCH (21:00)
[2017-08-15] MEDS: D5.45%NS/KCL 20MEQ 1,000 ML IV SCH ×2 (00:26→15:43)
[2017-08-15 00:42] VITALS: BP 154/58
[2017-08-15] MEDS: MORPHINE SULFATE 2 MG/ML SYR IV PRN ×2 (03:10→09:18)
[2017-08-15 04:47] VITALS: BP 150/61
[2017-08-15 06:40] LABS: BASOPHILS % 0.3 % (0.0-1.0); EOSINOPHILS % 0.9 % (0.0-6.0); HEMOGLOBIN 8.9 g/dL (12.0-16.0); LYMPHOCYTES # (AUTO) 1.1 (1.0-3.2); LYMPHOCYTES % 33.7 % (18.0-39.1); MEAN CORPUSCULAR HEMOGLOBIN 24.9 pg (28-32); MEAN CORPUSCULAR HGB CONC 30.7 g/dL (31-35); MEAN CORPUSCULAR VOLUME 81.2 fL (81-99); MONOCYTES # (AUTO) 0.5 (0.2-0.8); MONOCYTES % 16.3 % (4.4-11.3); NEUTROPHILS # (AUTO) 1.6 (2.1-6.9); NEUTROPHILS % 48.5 % (38.7-80.0); PLATELET COUNT 116 x10e3/uL (140-360); RED BLOOD COUNT 3.57 x10e6/uL (3.6-5.1); RED CELL DISTRIBUTION WIDTH 14.9 % (11.7-14.4)
[2017-08-15 07:10] LABS: ALANINE AMINOTRANSFERASE 8 IU/L (0-55); ALBUMIN 3.2 g/dL (3.5-5.0); ALBUMIN/GLOBULIN RATIO 1.4 (0.8-2.0); ALKALINE PHOSPHATASE 56 IU/L (40-150); ANION GAP 9.3 mmol/L (8-16); BLOOD UREA NITROGEN 7 mg/dL (7-26); BUN/CREATININE RATIO 8 (6-25); CALCIUM 8.7 mg/dL (8.4-10.2); CARBON DIOXIDE 26 mmol/L (22-29); CHLORIDE 113 mmol/L (98-107); CREATININE, SERUM 0.89 mg/dL (0.57-1.11); EST GLOMERULAR FILTRATION RATE > 60 ML/MIN (60-); GLUCOSE 96 mg/dL (74-118); MAGNESIUM 1.9 MG/DL (1.3-2.1); PHOSPHORUS 2.9 MG/DL (2.3-4.7); POTASSIUM 4.3 mmol/L (3.5-5.1); SODIUM 144 mmol/L (136-145)
[2017-08-15] MEDS ORDERED: PANTOPRAZOLE SOD 40 MG TABEC PO SCH (07:30)
[2017-08-15 08:21] VITALS: BP 151/61
[2017-08-15] MEDS ORDERED: NIFEDIPINE CR 30 MG TAB PO SCH (09:00)
[2017-08-15] MEDS ORDERED: FOLIC ACID 1 MG TAB PO SCH (09:00)
[2017-08-15] MEDS: LOSARTAN POTASSIUM 100 MG TAB PO SCH (09:16)
[2017-08-15] MEDS: ISOSORBIDE MONONITRATE 30 MG TAB CR PO SCH (09:17)
[2017-08-15 09:21] VITALS: BP 151/61
[2017-08-15] MEDS ORDERED: ACETAMINOPHEN 325 MG TAB PO PRN (09:30)
[2017-08-15 12:14] VITALS: BP 159/68
[2017-08-15 16:45] VITALS: BP 170/67
[2017-08-15] MEDS ORDERED: PROPOFOL IV EMULSION 10 MG/ML 20 ML VIAL ONE (19:43)
--- NOTE | 2017-08-16 11:52 | Discharge Summary ---
PRIMARY CARE PHYSICIAN: Dr. Homer Raya ATTENDING: Dr. Charlie Rosenbaum MEDICAL PHOTOGRAPHER: Dr. Michael Lamas FINAL DIAGNOSES 1. Ileus secondary to hypokalemia, potassium level of 2.9. 2. Chronic anemia secondary to iron deficiency, B12 deficiency, and folate deficiency. 3. History of irritable bowel syndrome, reflux, gastritis. SUMMARY: This is a 71-year-old female with a chronic anemia. Patient is noncompliant. Recommendation from Dr. Michael Lamas. The patient was supposed to have M-capsule previously, but she never showed up. She came in this time because of low potassium level of 2.9. She was having ileus. Patient does take diuretic at home, Lasix, but she is not taking enough potassium. She is only taking 20 mEq daily. Patient is also noncompliant to followup. She does have anemia. She has a previous colonoscopy. She had EGD today. There was no gross bleed. She does have iron-deficiency anemia. Patient with total iron of 49. She had a B12 level of 341. Folic acid 6.6. The patient's potassium was replaced. Potassium today is 4.3. Patient able to eat and drink. She does have bowel movement. No longer the patient has abdominal pain. The patient has multiple workup done here as well with acute abdominal series and also, abdomen CT. The CT of abdomen showed small bilateral pleural effusion. No definitive evidence of any inflammatory process. The patient was stable today. She is comfortable. She will go home today. Followup with Dr. Homer Raya. Referred to a child caregiver private home for anemia workup as an outpatient. She needs to follow up Dr. Michael Lamas for M-capsule as well. Resume home medication. Prescription as follow. Patient will continue with her home medications except for atenolol due to her bradycardia. She will continue with Lipitor, Lasix, Imdur, losartan, omeprazole, potassium, Trazodone, and . NEW PRESCRIPTIONS 1. Nifedipine XL 30 mg daily. 2. B12 sublingual 1000 mcg daily. 3. Folic acid 1 mg daily. 4. Hemocyte Plus 1 tablet daily. Prescriptions given to the patient. The patient stable, discharged home today, follow up as an outpatient. Job#: [id number] CQ
== END 2017-08-15 20:05 | disposition home or self-care (01) ==
LOC: ER 08:42 → ERHOLD 14:25 → IMCU 14:28
PROVIDERS: ADMIT Internal Medicine; ATTEND Internal Medicine
DX: K56.7 Ileus, unspecified (principal); K29.70 Gastritis, unspecified, without bleeding; E87.6 Hypokalemia; K58.9 Irritable bowel syndrome, unspecified; Z88.0 Allergy status to penicillin; Z91.018 Allergy to other foods; D51.3 Other dietary vitamin B12 deficiency anemia; D52.9 Folate deficiency anemia, unspecified; D50.9 Iron deficiency anemia, unspecified; K21.9 Gastro-esophageal reflux disease without esophagitis; Z91.19 Patient's noncompliance with other medical treatment and regimen; E78.5 Hyperlipidemia, unspecified; I11.0 Hypertensive heart disease with heart failure; I50.9 Heart failure, unspecified; Z96.651 Presence of right artificial knee joint; K44.9 Diaphragmatic hernia without obstruction or gangrene
CPT/HCPCS: 36415 ×3; 43239; 74022; 74177; 80048; 80053 ×2; 81001; 82150; 82550; 82553; 82607; 82746; 83540; 83690; 83735; 84100; 84443; 84466; 84484; 85025 ×3; 87086; 88305; 88312; 93005; 96360; G0378 ×3; J0696; J1885; J2270 ×3; J3480; J7030; Q9967; S0164

== ENCOUNTER 2018-01-16 16:11 | Emergency (ER) | payer OTHER ==
[~2018-01-16] VITALS: Ht 167.6 cm; Wt 89.8 kg
[~2018-01-16 16:11] MED LIST changes: +linzess PO
--- OUTSIDE RECORDS SUMMARY | 2018-01-16 16:16 | XMS REPORT ---
Author Organization Unknown Address [address] [place] [address] Phone [phone] Care Team Providers Care Configuration Management Architect Name Role Phone SILVANO RAYA MD (BUDDY) 3 [phone] Allergies Code Code System Name Reaction Severity [...] route at bedtime for 90 days. Completed 03/28/2017 morphine ER 100 mg tablet,extended release Active Not available Movantik 25 mg tablet Completed 01/19/2017 naproxen 500 mg tablet Completed 03/11/2016 nitrofurantoin monohydrate/macrocrystals 100 mg capsule Completed 10/18/2016 omeprazole 40 mg capsule,delayed release Take 1 [...] by oral route for 7 days. Completed 07/05/2016 valacyclovir 1 gram tablet Completed 03/01/2016 valacyclovir [...] (Total) Information not available 05/19/2016 [facility] [employer] [facility] [address] [place] [address] (Work Place) 05/19/2016 MAMMO, Screening, Bilateral [facility] ([facility]) [address] [place] [address] (Work Place) Lab Results Date Name Specimen Result Interpretation Description Value Range Status Address 01/19/2017 Lipid Panel, Serum Normal Cholesterol, Total 177 mg/dL <200 mg/dL Final [facility]: 9055 Padmini Weeks [address] Normal HDL Cholesterol 79 mg/dL >50 mg/dL Final [facility]: 9055 Padmini quinton [address] Normal Triglycerides 64 mg/dL <150 mg/dL Final [facility]: 9055 Padmini quinton [address] Normal LDL-cholesterol 84 mg/dL (calc) Final [facility]: 9055 Padmini quinton [address] Normal Chol/hdlc Ratio 2.2 (calc) <5.0 (calc) Final [facility]: 9055 Padmini quinton [address] Normal Non HDL Cholesterol 98 mg/dL (calc) <130 mg/dL (calc) Final [facility]: 9055 Padmini Vicente [address] [place] [address] 01/19/2017 CMP, Serum or Plasma High Glucose 101 mg/dL 65-99 mg/dL Final [facility]: 9055 Padmini quinton [address] Normal Urea Nitrogen (BUN) 15 mg/dL 7-25 mg/dL Final [facility]: 9055 Padmiin quinton [address] High Creatinine 1.06 mg/dL 0.60-0.93 mg/dL Final [facility]: 9055 Padmini quinton [address] Low eGFR Non-afr. Fijian 52 mL/min/1.73m2 > or=60 mL/min/1.73m2 Final [facility]: 9055 Padmini quinton [address] Normal eGFR 60 mL/min/1.73m2 > or=60 mL/min/1.73m2 Final [facility]: 9055 Padmini Valentine [place] Normal BUN/creatinine Ratio 14 (calc) 6-22 (calc) Final [facility]: 9055 Padmini Valentine, [place] Normal Sodium 145 mmol/L 135-146 mmol/L Final [facility]: 9055 [facility]admini [facility] Normal Potassium 3.6 mmol/L 3.5-5.3 mmol/L Final [facility]: 9055 Padmini [facility] Normal Chloride 107 mmol/L 98-110 mmol/L Final [facility]: 9055 Padmini [facility] Normal Carbon Dioxide 30 mmol/L 20-31 mmol/L Final [facility]: 9055 Padmini ValentineFormerly [facility] Normal Calcium 9.5 mg/dL 8.6-10.4 mg/dL Final [facility]: 9055 Padmini ValentineFormerly [facility] Normal Protein, Total 6.7 g/dL 6.1-8.1 g/dL Final [facility]: 9055 Padmini Valentine[facility] Normal Albumin 4.0 g/dL 3.6-5.1 g/dL Final [facility]: 9055 Padmini ValentineFormerly [facility] Normal Globulin 2.7 g/dL (calc) 1.9-3.7 g/dL (calc) Final [facility]: 9055 Padmini Valentine[facility] Normal Albumin/globulin Ratio 1.5 (calc) 1.0-2.5 (calc) Final [facility]: 9055 Padmini ValentineFormerly [facility] Normal Bilirubin, Total 0.7 mg/dL 0.2-1.2 mg/dL Final [facility]: 9055 Padmini ValentineFormerly [facility] Normal Alkaline Phosphatase 85 U/L 33-130 U/L Final [facility]: 9055 Padmini ValentineFormerly [facility] Normal Ast 18 U/L 10-35 U/L Final [facility]: 9055 Padmini ValentineFormerly [facility] Normal Alt 16 U/L 6-29 U/L Final [facility]: 9055 Padmini Valentine [place] 01/19/2017 CBC W/ Auto Diff Low White Blood Cell Count 3.1 thousand/uL 3.8-10.8 thousand/uL Final [facility]: 9055 [place] [place] Normal Red Blood Cell Count 4.22 million/uL 3.80-5.10 million/uL Final [facility]: 9055 [address] [place] Low Hemoglobin 10.2 g/dL 11.7-15.5 g/dL Final [facility]: 9055 [address] [place] Low Hematocrit 34.3 % 35.0-45.0 % Final [facility]: 9055 Shar[address] Sutton Normal Mcv 81.3 fL 80.0-100.[address] [facility]: 9055 Padmini Valentine, [place] Low Mch 24.2 pg 27.0-33.[address] [facility]: 9055 Padmini Valentine, [place] Low Mchc 29.7 g/dL 32.0-36.0 g/dL Final [facility]: 9055 Sharath Sutton Normal Rdw 13.4 % 11.0-15.0 % Final [facility]: 9008 Sharath Sutton Normal Platelet Count 156 thousand/uL 140-400 thousand/uL Final [facility]: 9055 Sharath Sutton Normal Mpv 11.8 fL 7.5-12.[address] [facility]: 9088 Sharath Sutton Normal Absolute Neutrophils 1869 cells/uL 8015-7586 cells/uL Final [facility]: 9051 Sharath Sutton Normal Absolute Lymphocytes 942 cells/uL 850-3900 cells/uL Final [facility]: 9049 Sharath Sutton Normal Absolute Monocytes 260 cells/uL 200-950 cells/uL Final [facility]: 9055 Padmini Valentine [place] Low Absolute Eosinophils 9 cells/uL 15-500 cells/uL Final [facility]: 9055 Padmini Valentine [place] Normal Absolute Basophils 19 cells/uL 0-200 cells/uL Final [facility]: 9055 Sharath Sutton Normal Neutrophils 60.3 % Final [facility]: 9055 Sharath Sutton Normal Lymphocytes 30.4 % Final [facility]: 9055 Padmini Valentine [place] Normal Monocytes 8.4 % Final [facility]: 9055 Padmini quinton [place] [address], [place] Normal Eosinophils 0.3 % Final [facility]: 9055 Padmini quinton [place] [address], [place] Normal Basophils 0.6 % Final [facility]: 9055 Padmini Weeks [place] [address], [place] 09/21/2016 Culture, Urine ABNORMAL Culture, Urine, Routine Final [facility]: [address] [place] [address], [place] Lipid Panel, Serum Normal Cholesterol, Total 164 mg/dL 125-200 mg/dL Final [facility]: [address], [place] Normal HDL Cholesterol 75 mg/dL > or=46 mg/dL Final [facility]: [address], [place] Normal Triglycerides 77 mg/dL <150 mg/dL Final [facility]: [address], [place] Normal LDL-cholesterol 74 mg/dL (calc) <130 mg/dL (calc) Final [facility]: [address], [place] Normal Chol/hdlc Ratio 2.2 (calc) < or=5.0 (calc) Final [facility]: [address], [place] Normal Non HDL Cholesterol 89 mg/dL (calc) Final [facility]: [address], [place] CMP, Serum or Plasma High Glucose 105 mg/dL 65-99 mg/dL Final [facility]: [address], [place] Normal Urea Nitrogen (BUN) 12 mg/dL 7-25 mg/dL Final [facility]: [address], [place] High Creatinine 0.97 mg/dL 0.60-0.93 mg/dL Final [facility]: [address], [place] Low eGFR Non-afr. Fijian 58 mL/min/1.73m2 > or=60 mL/min/1.73m2 Final [facility]: [address], [place] Normal eGFR 68 mL/min/1.73m2 > or=60 mL/min/1.73m2 Final [facility]: [address], [place] Normal BUN/creatinine Ratio 12 (calc) 6-22 (calc) Final [facility]: [address], [place] Normal Sodium 141 mmol/L 135-146 mmol/L Final [facility] [address] [facility] [place] Normal Potassium 4.6 mmol/L 3.5-5.3 mmol/L Final [facility]: [address], [place] Normal Chloride 102 mmol/L 98-110 mmol/L [facility]: [address] [facility], [place] Normal Carbon Dioxide 30 mmol/L 20-31 mmol/L Final [facility]: [address] [facility], [place] Normal Calcium 9.4 mg/dL 8.6-10.4 mg/dL Final [facility]: [address] [facility], [place] Normal Protein, Total 7.1 g/dL 6.1-8.1 g/dL Final [facility]: [address] [facility] [address] [facility] [place] Normal Albumin 4.1 g/dL 3.6-5.1 g/dL [facility] Lab: [address] [place] [address], [place] Normal Globulin 3.0 g/dL (calc) 1.9-3.7 g/dL (calc) Final [facility]: [address] [place] [address], [place] Normal Albumin/globulin Ratio 1.4 (calc) 1.0-2.5 (calc) [facility]: [address] [facility], [place] Normal Bilirubin, Total 0.6 mg/dL 0.2-1.2 mg/dL [facility]: [address] [place] [address], [place] Normal Alkaline Phosphatase 85 U/L 33-130 U/L Final [facility]: [address] [place] [address], [place] Normal Ast 14 U/L 10-35 U/L [facility]: [address] [place] [address], [place] Normal Alt 8 U/L 6-29 U/L [facility]: [address] [facility], [place] CBC W/ Auto Diff Low White Blood Cell Count 3.2 thousand/uL 3.8-10.8 thousand/uL Final [facility]: [address] [place] [address], [place] Normal Red Blood Cell Count 4.34 million/uL 3.80-5.10 million/uL Final [facility]: [address] [facility] [place] Low Hemoglobin 10.4 g/dL 11.7-15.5 g/dL Final [facility] Lab: [address], [place] Low Hematocrit 33.5 % 35.0-45.0 % Final [facility] Lab: [address], [place] Low Mcv 77.1 fL 80.0-100.0 fL Final [facility]: [address], [place] Low Mch 23.9 pg 27.0-33.0 pg Final [facility]: [address], [place] Low Mchc 31.0 g/dL 32.0-36.0 g/dL Final [facility]: [address], [place] High Rdw 17.5 % 11.0-15.0 % Final [facility]: [address], [place] Normal Platelet Count 145 thousand/uL 140-400 thousand/uL Final [facility]: [address], [place] Normal Mpv 10.1 fL 7.5-12.5 fL Final [facility]: [address], [place] Normal Absolute Neutrophils 1917 cells/uL 2288-3485 cells/uL Final [facility]: [address], [place] Normal Absolute Lymphocytes 938 cells/uL 850-3900 cells/uL Final [facility] Lab: [address], [place] Normal Absolute Monocytes 330 cells/uL 200-950 cells/uL Final [facility]: [address], [place] Normal Absolute Eosinophils 16 cells/uL 15-500 cells/uL Final [facility]: [address], [place] Normal Absolute Basophils 0 cells/uL 0-200 cells/uL Final [facility] Lab: [address], [place] Normal Neutrophils 59.9 % Final [facility]: [address], [place] Normal Lymphocytes 29.3 % Final [facility]: [address], [place] Normal Monocytes 10.3 % Final [facility]: [address], [place] Normal Eosinophils 0.5 % Final [facility]: [address], [place] Normal Basophils 0.0 % Final [facility] Lab: [address], [place] T4, Total, Serum Normal T4 (Thyroxine), Total 8.2 mcg/dL 4.5-12.0 mcg/dL Final [facility] Lab: [address] [facility], [place] TSH, Serum or Plasma Normal Tsh 1.12 mIU/L 0.40-4.50 mIU/L Final [facility] Lab: [address] [facility] [place] Urinalysis, Dipstick Color Color dark yellow [facility]: [address] [facility] [address], [place] Color Appearance cloudy [facility]: [address] [facility] [address], [place] Color Glucose negative [facility]: [address] [facility] [address], [place] Color Bilirubin negative [facility]: [address] [facility] [address], [place] Color Ketones negative [facility]: [address] [facility] [address], [place] Color Specific [place] 1.030 [facility]: [address] [facility] [address], [place] Color Blood moderate [facility]: [address] [facility] [address], [place] Color PH 5.5 [facility]: [address] [facility] [address], [place] Color Protein 300 [facility]: [address] [facility] [address], [place] Color Urobilinogen 0.2 [facility]: [address] [facility] [address], [place] Color Nitrites negative [facility]: [address] [facility] [address], [place] Color Leukocytes small [facility]: [address] [facility] [address], [place] Color Note [facility]: [address] [facility] [address], [place] Past Encounters 07/03/2017 Hypertensive Heart Disease; Gastroesophageal Reflux Disease without Esophagitis; Pure Hypercholesterolemia; Pneumococcal Vaccination; Constipation; Dependent Edema PABLITO Kim: [address] [facility], [address] [address], [place]. 03/28/2017 Body Mass Index 30+ - Obesity; Hypertensive Heart Disease; Temporomandibular Joint Disorder; Diarrhea; Gastroesophageal Reflux Disease without Esophagitis; Insomnia Disorder Related to Known Organic Factor; Herpesvirus Infection; Aphthous Ulcer of Mouth; Pure Hypercholesterolemia; Constipation; Opioid Dependence; Bilateral Atherosclerosis of Arteries of Lower Limbs; Common Cold Silvano Raya MD: 169[address] [facility], [address] [address], [place]. 01/19/2017 Hypertensive Heart Disease; Pure Hypercholesterolemia; Diarrhea; Gastroesophageal Reflux Disease without Esophagitis; Aphthous Ulcer of Mouth; Insomnia Disorder Related to Known Organic Factor; Immunization; Constipation JORGE Parikh: [address] [address], [place]. 12/06/2016 Temporomandibular Joint Disorder; Drug-induced Constipation PABLITO Ramirez: [address] [address], Ph. 10/18/2016 Temporomandibular Joint Disorder; Body Mass Index 30+ - Obesity; Constipation Silvano Raya MD: [address] [address], Ph. 09/21/2016 Candidiasis of Vagina; Aphthous Ulcer of Mouth; Dysuria JORGE Parikh: [address] [address], Ph. 08/08/2016 Diarrhea Silvano Raya MD: [address] [address], Ph. 07/20/2016 Hypertensive Heart Disease; Pure Hypercholesterolemia; Temporomandibular Joint Disorder; Pain in Right Knee; Insomnia Disorder Related to Known Organic Factor; Drug-induced Constipation Silvano Raya MD: [address] [address], Ph. 07/05/2016 Hypertensive Heart Disease; Pure Hypercholesterolemia; Temporomandibular Joint Disorder JORGE Parikh: [address] [address], Ph. 07/01/2016 Filippo Higuerat: [address] [address], Ph. 05/25/2016 Filippo Higuerat: [address] [address], Ph. 05/20/2016 Emma Raya: 9055 [facility], [place] [address], [place] [address], Ph. 05/19/2016 Adult Health Examination; Chronic Constipation; Temporomandibular Joint Disorder; Anemia; Hypertensive Heart Disease; Pain in Right Knee; History of Total Knee Arthroplasty; Alpha Trait Thalassemia; Gastroesophageal Reflux Disease without Esophagitis; Insomnia Disorder Related to Known Organic Factor; Idiopathic Osteoarthritis; Pure Hypercholesterolemia; Neoplasm of Adrenal Gland; Screening for Osteoporosis; Screening for Malignant Neoplasm of Breast; Advance Directive Discussed with Patient; Body Mass Index 25-29 - Overweight Silvano Raya MD: [address] [address], Ph. 05/09/2016 Follow-up Visit; Gastroesophageal Reflux Disease without Esophagitis; Chronic Constipation; Diarrhea Silvano Raya MD: 04213 [facility], [address] [address], Ph. 05/06/2016 Emma Raya: 9055 [facility], [address] [address], Ph. 04/21/2016 Pain in Right Knee; Opioid Dependence PABLITO Ramirez: 15311 [facility], [address] [address], Ph. 03/11/2016 Impacted Cerumen; Screening Colonoscopy PABLITO Ramirez: [address]392 [facility], [address] [address], Ph. 03/01/2016 Follow-up Visit; Herpesvirus Infection Silvano Raya MD: 23857 [facility], [address] [address], Ph. 02/26/2016 Emma Raya: [address] [address], Ph. 02/19/2016 Temporomandibular Joint Disorder Peter Jaime MD: 73097 [facility], [address] [address], Ph. 02/12/2016 Posttreatment Pain; Hypertensive Heart Disease; History of Total Knee Arthroplasty; Pruritic Rash Reina GordonJACIELP: [address] [facility], [address], [place] [address], Ph. Social History Smoking Status Never Smoker [...] risks and promote healthy living in your [employer] folder. 05/06/2016-Called patient on [phone] and [phone] and LVM to return call to office. Advised patient to call office if she has any fever, n/v, diarrhea, diaphoresis, abdominal pain, dizziness, weakness, or fatique. 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
[2018-01-16] MEDS ORDERED: MORPHINE SULFATE 2 MG/ML SYR IV STA (16:21)
[2018-01-16] MEDS ORDERED: ONDANSETRON HCL INJ 2 MG/ML VIAL IV STA (16:21)
[2018-01-16] MEDS ORDERED: ACETAMINOPHEN 325 MG TAB PO ONE (16:45)
[2018-01-16 17:15] LABS: BILIRUBIN,URINE NEGATIVE (NEGATIVE); CLARITY,URINE CLEAR (CLEAR); COLOR,URINE YELLOW (YELLOW); KETONES,URINE NEGATIVE (NEGATIVE); LEUKOCYTE ESTERASE ,URINE NEGATIVE (NEGATIVE); NITRITE,URINE NEGATIVE (NEGATIVE); PROTEIN,URINE DIPSTICK NEGATIVE (NEGATIVE); URINE UROBILINOGEN 0.2 mg/dL (0.2 - 1)
[2018-01-16 17:22] LABS: BACTERIA,URINE MODERATE /HPF; EPITHELIAL CELLS,URINE MODERATE /LPF; MUCUS,URINE MODERATE (RARE)
[2018-01-16 17:44] LABS: BASOPHILS % 0.4 % (0.0-1.0); EOSINOPHILS % 0.2 % (0.0-6.0); HEMATOCRIT 35.1 % (34.2-44.1); HEMOGLOBIN 10.9 g/dL (12.0-16.0); LYMPHOCYTES # (AUTO) 1.8 (1.0-3.2); LYMPHOCYTES % 38.3 % (18.0-39.1); MEAN CORPUSCULAR HEMOGLOBIN 24.9 pg (28-32); MEAN CORPUSCULAR HGB CONC 31.1 g/dL (31-35); MEAN CORPUSCULAR VOLUME 80.1 fL (81-99); MONOCYTES # (AUTO) 0.5 (0.2-0.8); MONOCYTES % 11.8 % (4.4-11.3); NEUTROPHILS # (AUTO) 2.3 (2.1-6.9); NEUTROPHILS % 49.1 % (38.7-80.0); PLATELET COUNT 133 x10e3/uL (140-360); RED BLOOD COUNT 4.38 x10e6/uL (3.6-5.1); RED CELL DISTRIBUTION WIDTH 15.1 % (11.7-14.4)
[2018-01-16 17:51] LABS: INR 0.95; PROTHROMBIN TIME 13.6 seconds (11.9-14.5)
[2018-01-16 17:52] LABS: PARTIAL THROMBOPLASTIN TIME 35.6 seconds (23.8-35.5)
[2018-01-16 18:04] LABS: ALANINE AMINOTRANSFERASE 8 IU/L (0-55); ALBUMIN 4.2 g/dL (3.5-5.0); ALBUMIN/GLOBULIN RATIO 1.5 (0.8-2.0); ALKALINE PHOSPHATASE 58 IU/L (40-150); ANION GAP 13.2 mmol/L (8-16); BLOOD UREA NITROGEN 11 mg/dL (7-26); BUN/CREATININE RATIO 10 (6-25); CALCIUM 9.5 mg/dL (8.4-10.2); CARBON DIOXIDE 26 mmol/L (22-29); CHLORIDE 104 mmol/L (98-107); CREATINE KINASE 71 IU/L (29-168); CREATININE, SERUM 1.15 mg/dL (0.57-1.11); EST GLOMERULAR FILTRATION RATE 56 ML/MIN (60-); GLUCOSE 98 mg/dL (74-118); LIPASE 36 U/L (8-78); POTASSIUM 3.2 mmol/L (3.5-5.1); SODIUM 140 mmol/L (136-145)
[2018-01-16] MEDS ORDERED: SODIUM CHLORIDE 0.9% 500ML 500 ML IV STA (18:30)
--- NOTE | 2018-01-16 19:34 | Diagnostic Imaging Report ---
EXAMINATION: CHEST 2 VIEWS INDICATION: Severe pain on the right. COMPARISON: 08/13/17. FINDINGS: TUBES and LINES: None. LUNGS: Lungs are well inflated. Lungs are clear. There is no evidence of pneumonia or pulmonary edema. PLEURA: No pleural effusion or pneumothorax. HEART AND MEDIASTINUM: The cardiac silhouette is mildly enlarged. BONES AND SOFT TISSUES: No acute osseous lesion. Spondylosis of the thoracic spine. UPPER ABDOMEN: No free air under the diaphragm. IMPRESSION: Mild cardiomegaly without acute decompensation. Signed by: Dr. Marianne Rae M.D. on 01/16/2018 7:31 PM
--- NOTE | 2018-01-16 19:45 | Diagnostic Imaging Report ---
EXAM: CT Abdomen and Pelvis WITH contrast INDICATION: Right flank pain. COMPARISON: 08/14/17. TECHNIQUE: Abdomen and pelvis were scanned utilizing a multidetector helical scanner from the lung base to the pubic symphysis after administration of IV contrast. Coronal and sagittal reformations were obtained. Routine protocol was performed. Scan was performed when during portal venous phase. IV CONTRAST: 100 mL Isovue-370. Patient received oral hydration ORAL CONTRAST: Water RADIATION DOSE: Total DLP: 450.75 mGy*cm Estimated effective dose: (DLP x 0.015 x size factor) mSv COMPLICATIONS: None FINDINGS: LINES and TUBES: None. LOWER THORAX: Interval resolution of bilateral small pleural effusions. HEPATOBILIARY: No focal hepatic lesions. No biliary ductal dilation. GALLBLADDER: Surgically absent. SPLEEN: No splenomegaly. PANCREAS: No focal masses or ductal dilatation. ADRENALS: There is a 3.0 cm low-attenuation lesion in the right adrenal gland, unchanged. No left adrenal nodules KIDNEYS/URETERS: Kidneys enhance symmetrically. No hydronephrosis. Show low-attenuation lesions in the interpolar region of the left in the largest posteriorly measuring 1.4 cm on image 25 series 2, unchanged. No stones. GI TRACT: No abnormal distention, wall thickening, or evidence of bowel obstruction. Appendix is normal. PELVIC ORGANS/BLADDER: Status post hysterectomy. Multiple phleboliths scattered throughout the pelvis. Mild wall thickening of the urinary bladder likely related to underdistention. LYMPH NODES: No lymphadenopathy. VESSELS: Unremarkable. PERITONEUM / RETROPERITONEUM: No free air or fluid. BONES: Mild grade 1 anterolisthesis of L4 in relation to L5. Multilevel degenerative changes. Slight retrolisthesis of L1 relation to L2. SOFT TISSUES: Unremarkable. IMPRESSION: 1. No acute abdominal pelvic abnormality. 2. Stable indeterminate 3.0 cm right adrenal nodule. Signed by: Dr. Marianne Rae M.D. on 01/16/2018 7:42 PM
[2018-01-16] MEDS ORDERED: KETOROLAC TROMETHAMINE 30 MG/ML VIAL IV STA (20:00)
[2018-01-16] MEDS ORDERED: SODIUM CHLORIDE 0.9% 50ML 50 ML ONE (20:18)
[2018-01-16] MEDS ORDERED: IOPAMIDOL 370 MG/ML 200 ML INFUS..BTL INJ ONE (20:18)
[2018-01-16 20:28] VITALS: BP 156/85
== END 2018-01-16 21:06 | disposition home or self-care (01) ==
LOC: ER 16:11
DX: R10.11 Right upper quadrant pain (principal); R11.0 Nausea; I50.9 Heart failure, unspecified; K21.9 Gastro-esophageal reflux disease without esophagitis
CPT/HCPCS: 36415; 71046; 74177; 80053; 81001; 82550; 82553; 83605; 83690; 84484; 85025; 85610; 85730; 87040; 87086; 87400; 93005; 99284; J1885; J2270; J2405; J7040; Q9967

== ENCOUNTER 2018-05-19 20:43 | Inpatient (IN) | payer MEDICARE, OTHER ==
[~2018-05-19] VITALS: Ht 167.6 cm; Wt 90.8 kg
[2018-05-19] MEDS ORDERED: ENALAPRILAT IV INJ 1.25 MG/ML VIAL IV STA (20:57)
[2018-05-19] MEDS ORDERED: FAMOTIDINE 20 MG/2 ML VIAL IV ONE (21:00)
[2018-05-19] MEDS ORDERED: ONDANSETRON HCL INJ 2MG/ML 2ML 2 MG/ML VIAL IV ONE (21:00)
[2018-05-19] MEDS ORDERED: KETOROLAC TROMETHAMINE 30 MG/ML VIAL IV ONE (21:00)
[2018-05-19 21:17] LABS: HEMATOCRIT 32.6 % (34.2-44.1); LYMPHOCYTES # (AUTO) 0.9 (1.0-3.2); LYMPHOCYTES % 25.7 % (18.0-39.1); MEAN CORPUSCULAR HEMOGLOBIN 24.7 pg (28-32); MEAN CORPUSCULAR HGB CONC 30.7 g/dL (31-35); MEAN CORPUSCULAR VOLUME 80.5 fL (81-99); MONOCYTES # (AUTO) 0.4 (0.2-0.8); MONOCYTES % 10.9 % (4.4-11.3); NEUTROPHILS # (AUTO) 2.1 (2.1-6.9); NEUTROPHILS % 63.4 % (38.7-80.0); PLATELET COUNT 164 x10e3/uL (140-360); RED BLOOD COUNT 4.05 x10e6/uL (3.6-5.1); RED CELL DISTRIBUTION WIDTH 15.3 % (11.7-14.4)
[2018-05-19 21:34] LABS: ALANINE AMINOTRANSFERASE 31 IU/L (0-55); ALBUMIN/GLOBULIN RATIO 1.4 (0.8-2.0); ALKALINE PHOSPHATASE 80 IU/L (40-150); AMYLASE 56 U/L (25-125); ANION GAP 13.5 mmol/L (8-16); BLOOD UREA NITROGEN 10 mg/dL (7-26); BUN/CREATININE RATIO 10 (6-25); CALCIUM 9.6 mg/dL (8.4-10.2); CARBON DIOXIDE 28 mmol/L (22-29); CHLORIDE 109 mmol/L (98-107); CREATININE, SERUM 1.04 mg/dL (0.57-1.11); EST GLOMERULAR FILTRATION RATE > 60 ML/MIN (60-); GLUCOSE 112 mg/dL (74-118); LIPASE 15 U/L (8-78); POTASSIUM 3.5 mmol/L (3.5-5.1); SODIUM 147 mmol/L (136-145)
[2018-05-19] MEDS ORDERED: CRESTOR10 MG PO (21:35)
[2018-05-19] MEDS ORDERED: FERROUS SULFAT324 MG PO (21:36)
[2018-05-19] MEDS ORDERED: ATENOLOL50 MG PO (21:37)
[2018-05-19 21:39] LABS: CLARITY,URINE CLEAR (CLEAR); COLOR,URINE YELLOW (YELLOW)
[2018-05-19 21:40] LABS: BILIRUBIN,URINE NEGATIVE (NEGATIVE); KETONES,URINE NEGATIVE (NEGATIVE); LEUKOCYTE ESTERASE ,URINE TRACE (NEGATIVE); NITRITE,URINE NEGATIVE (NEGATIVE); PROTEIN,URINE DIPSTICK NEGATIVE (NEGATIVE); URINE UROBILINOGEN 0.2 mg/dL (0.2 - 1)
[2018-05-19 21:45] LABS: BACTERIA,URINE FEW /HPF; EPITHELIAL CELLS,URINE FEW /LPF; MUCUS,URINE FEW (RARE)
[2018-05-19 21:59] LABS: CREATINE KINASE MB 1.1 ng/mL (0-5.0)
[2018-05-19] MEDS ORDERED: MORPHINE SULFATE INJ 4 MG/ML INJ 1ML ONE (22:40)
[2018-05-19] MEDS ORDERED: MORPHINE SULFATE INJ 4 MG/ML INJ 1ML IV STA (22:42)
--- NOTE | 2018-05-19 22:55 | Diagnostic Imaging Report ---
EXAM: CT Abdomen and Pelvis WITH contrast INDICATION: ^look for appy, diverticulitis,sbo, panreatitis, hernia, rup ^[id number] ^0 ^Y COMPARISON: CT dated 01/16/2018 TECHNIQUE: Abdomen and pelvis were scanned utilizing a multidetector helical scanner from the lung base to the pubic symphysis after administration of IV contrast. Coronal and sagittal reformations were obtained. Dose modulation, iterative reconstruction, and/or weight based adjustment of the mA/kV was utilized to reduce the radiation dose to as low as reasonably achievable. Routine protocol was performed. Scan was performed when during portal venous phase. IV CONTRAST: 100 mL of Isovue-370 ORAL CONTRAST: Water COMPLICATIONS: None RADIATION DOSE: Total DLP: 508.21 mGy*cm Estimated effective dose: (DLP x 0.015 x size factor) mSv CTDIvol has been reviewed. It is below the limits set by the Radiation Protocol Committee (RPC). FINDINGS: LINES and TUBES: None. LOWER THORAX: Unremarkable HEPATOBILIARY: No focal hepatic lesions. No biliary ductal dilation. GALLBLADDER: Surgically absent. SPLEEN: No splenomegaly. PANCREAS: No focal masses or ductal dilatation. ADRENALS: Stable right adrenal nodule. No left adrenal nodule. KIDNEYS/URETERS: Kidneys enhance symmetrically. No hydronephrosis. Unchanged renal cysts. No stones. GI TRACT: Mildly dilated proximal jejunal loops, demonstrating wall thickening (series 301, image 27), with nondistended small bowel loops seen lower abdomen. Gastric distention. Appendix is normal. PELVIC ORGANS/BLADDER: Bladder is collapsed. Numerous pelvic phleboliths. LYMPH NODES: No lymphadenopathy. VESSELS: Unremarkable. PERITONEUM / RETROPERITONEUM: No free air. Trace ascites. BONES: Multilevel degenerative changes of spine. Grade 1 anterolisthesis of L2 in relation to L1. Grade 1 retrolisthesis of L5 in relation to L4. SOFT TISSUES: Unremarkable. Bilateral buttock injection granulomas. IMPRESSION: 1. Mildly dilated proximal jejunal loops, demonstrating wall thickening, along with nondilated lower abdomen loops, raising the possibility of low-grade partial small bowel obstruction. Additionally the dilated jejunal loops show wall thickening, which could represent enteritis in the appropriate clinical setting. 2. No evidence of appendicitis or diverticulitis. Signed by: Dr. Silvio Vance MD on 05/19/2018 10:51 PM
[2018-05-19] MEDS ORDERED: LACTATED RINGER'S 1,000 ML IV SCH (23:08)
[2018-05-19] MEDS ORDERED: DIPHENHYDRAMINE HCL INJ 50 MG/ML VIAL IV PRN (23:15)
[2018-05-19] MEDS ORDERED: ZOLPIDEM TARTRATE 5 MG TAB PO PRN (23:15)
[2018-05-19] MEDS: LEVOFLOXACIN 500MG/D5W 100ML 100 ML IV SCH (23:36)
[2018-05-20] VITALS (7 sets, daily range): BP systolic 163–178; BP diastolic 56–86
[2018-05-20] MEDS ORDERED: ASPIRIN 81 MG CHEW TAB PO ONE
[2018-05-20] MEDS: METRONIDAZOLE 500MG/NS 100ML IV SCH ×5 (00:30→23:26)
--- NOTE | 2018-05-20 00:58 | NUR ---
PT PLACED ONTO HOSPITAL BED AND MOVED TO ROOM 2 FOR COMFORT, NO COMPLAINTS AT THIS TIME, VSS, CALL LIGHT IN REACH
[2018-05-20] MEDS: ONDANSETRON HCL INJ 2MG/ML 2ML 2 MG/ML VIAL IV PRN ×3 (02:27→17:19)
[2018-05-20] MEDS: MORPHINE SULFATE INJ 4 MG/ML INJ 1ML IV PRN ×3 (02:29→14:12)
[2018-05-20 06:08] LABS: HEMATOCRIT 28.9 % (34.2-44.1); HEMOGLOBIN 8.9 g/dL (12.0-16.0); LYMPHOCYTES # (AUTO) 1.2 (1.0-3.2); LYMPHOCYTES % 30.7 % (18.0-39.1); MEAN CORPUSCULAR HEMOGLOBIN 24.9 pg (28-32); MEAN CORPUSCULAR HGB CONC 30.8 g/dL (31-35); MEAN CORPUSCULAR VOLUME 80.7 fL (81-99); MONOCYTES # (AUTO) 0.5 (0.2-0.8); MONOCYTES % 14.3 % (4.4-11.3); NEUTROPHILS # (AUTO) 2.1 (2.1-6.9); PLATELET COUNT 129 x10e3/uL (140-360); RED BLOOD COUNT 3.58 x10e6/uL (3.6-5.1); RED CELL DISTRIBUTION WIDTH 15.3 % (11.7-14.4)
[2018-05-20 06:42] LABS: CREATINE KINASE MB 0.4 ng/mL (0-5.0)
[2018-05-20 06:58] LABS: ANION GAP 11.3 mmol/L (8-16); BLOOD UREA NITROGEN 13 mg/dL (7-26); BUN/CREATININE RATIO 13 (6-25); CALCIUM 8.7 mg/dL (8.4-10.2); CARBON DIOXIDE 26 mmol/L (22-29); CHLORIDE 108 mmol/L (98-107); CREATININE, SERUM 1.04 mg/dL (0.57-1.11); EST GLOMERULAR FILTRATION RATE > 60 ML/MIN (60-); GLUCOSE 95 mg/dL (74-118); POTASSIUM 3.3 mmol/L (3.5-5.1); SODIUM 142 mmol/L (136-145)
[2018-05-20] MEDS ORDERED: IOPAMIDOL 370 MG/ML 200 ML INFUS..BTL INJ ONE (07:04)
[2018-05-20] MEDS ORDERED: SODIUM CHLORIDE 0.9% 50ML 50 ML ONE (07:04)
[2018-05-20] MEDS: FAMOTIDINE 20 MG/2 ML VIAL IV SCH ×2 (09:13→17:19)
--- NOTE | 2018-05-20 09:51 | NUR ---
DREW CALLED AND LEFT MESSAGE REGARDING PATIENT LEVEL OF CARRE. DR. KOHLI NOTIFIED THAT OBSERVATION ORDER PLACED. PATIENT MEETS INPT STATUS. PENDING RETURN CALL WITH INPT ORDER.
[2018-05-20] MEDS: SODIUM CHLORIDE 0.45% 1,000 ML IV SCH ×2 (12:21→22:19)
[2018-05-20] MEDS: POTASSIUM CHLORIDE 10MEQ EA PO SCH ×3 (13:15→21:03)
[2018-05-20] MEDS: ENOXAPARIN SOD INJ 40 MG/0.4 ML SYR SC SCH (17:19)
--- NOTE | 2018-05-20 18:19 | History and Physical ---
Patient is on observation. PRIMARY CARE PHYSICIAN: . CHIEF COMPLAINT: Abdominal pain. HISTORY: Patient is a 72-year-old female with extensive abdominal surgery. Patient has previous small bowel obstruction. She came in with abdominal discomfort. CT scan shows possible partial small bowel obstruction. The patient is otherwise stable. She has history of complete hysterectomy, appendectomy and gallbladder surgery. The patient is otherwise stable. She is doing better. She had a bowel movement a few days ago. PAST MEDICAL HISTORY: Hypertension, dyslipidemia, reflux, osteoarthritis, chronic anemia. PAST SURGICAL HISTORY: Complete hysterectomy, appendectomy, cholecystectomy, carpal tunnel surgery, tonsillectomy, adenoidectomy. SOCIAL HISTORY: The patient does not smoke or use alcohol. No recreational drugs. ALLERGIES: PENICILLIN AND KIWI. HOME MEDICATIONS: List is adequately reviewed. REVIEW OF SYSTEMS: Abdominal discomfort, but no distention. PHYSICAL EXAMINATION: CARDIOVASCULAR: S1, S2. Regular rhythm. ABDOMEN: Soft. Positive bowel sounds. EXTREMITIES: No cyanosis or edema. NEUROLOGIC: No gross focal deficits. LABORATORY DATA: Sodium is 142, potassium 3.3, chloride 108, bicarb 26, BUN 13, creatinine 1.04, glucose 95. WBC 3.8, hemoglobin 8.9, hematocrit 29, platelets 129. IMAGING: Abdominal and pelvic CT scan showed mildly dilated proximal jejunal loop demonstrating wall thickening along with nondilated lower abdominal loop raising the possibility of low grade partial small bowel obstruction, may be in the setting of enteritis. The patient did not have any diarrhea of note. IMPRESSION: 1. Partial small bowel obstruction, most likely from abdominal adhesion and obesity. 2. Multiple chronic baseline problem. 3. Hypokalemia, exacerbating of her small bowel obstruction. PLAN: Clear liquid diet. Increase activity as tolerated. IV fluids. Replace potassium. Antibiotics. We will repeat abdominal x-ray in the morning. The patient will remain on observation for now. MD DERRICK Ruiz/NOHEMYL /[id number]
--- NOTE | 2018-05-20 20:23 | Consultation ---
DATE OF CONSULTATION: May 20, 2018 CHIEF COMPLAINT: Abdominal pain. HPI: The patient is a 72-year-old female with 1-day history of pain in the epigastric area with nausea and vomiting. The patient denies fever, chills, or diarrhea. PAST MEDICAL HISTORY: Significant for hypertension, hyperlipidemia, reflux, osteoarthritis. PAST SURGICAL HISTORY: Positive for hysterectomy, appendectomy, cholecystectomy, and carpal tunnel release. ALLERGIES: SHE IS ALLERGIC TO PENICILLIN. SOCIAL HABITS: She does not smoke or drink alcohol. REVIEW OF SYSTEMS: No chest pain, shortness of breath, or cough. PHYSICAL EXAMINATION VITALS: Stable. Afebrile. GENERAL: She is awake and alert in moderate discomfort. HEENT: Sclerae are nonicteric. NECK: Supple. LUNGS: Clear. HEART: Regular rate and rhythm. ABDOMEN: Mild to moderately distended with some guarding tenderness in the epigastric area with no rebound. EXTREMITIES: Without cyanosis or edema. LABS: White cell count is 3.7, hemoglobin of 8.9, platelet count is 129. Creatinine is 1.0. Lactic acid is 6.7. CT of the abdomen showed evidence of dilated proximal loops of jejunum with wall thickening suggestive of partial small bowel obstruction. ASSESSMENT: Small bowel obstruction, likely secondary to adhesion. PLAN: Serial abdominal exam and x-ray. Will follow patient closely. Job#: [id number] LORENA
[2018-05-20] MEDS: TRAZODONE HCL 50 MG TAB PO SCH (20:24)
[2018-05-20] MEDS: SIMVASTATIN 40 MG TAB PO SCH (20:24)
[2018-05-20] MEDS: LEVOFLOXACIN 500MG/D5W 100ML 100 ML IV SCH (22:19)
[2018-05-21] VITALS: BP 159/67
[2018-05-21 04:00] VITALS: BP 166/69
[2018-05-21] MEDS: METRONIDAZOLE 500MG/NS 100ML IV SCH ×3 (05:07→18:21)
[2018-05-21] MEDS: MORPHINE SULFATE INJ 4 MG/ML INJ 1ML IV PRN ×3 (05:08→18:17)
[2018-05-21] MEDS: ONDANSETRON HCL INJ 2MG/ML 2ML 2 MG/ML VIAL IV PRN ×2 (05:08→08:35)
[2018-05-21 05:58] LABS: BASOPHILS % 0.7 % (0.0-1.0); HEMATOCRIT 30.2 % (34.2-44.1); HEMOGLOBIN 9.3 g/dL (12.0-16.0); LYMPHOCYTES # (AUTO) 0.9 (1.0-3.2); LYMPHOCYTES % 29.9 % (18.0-39.1); MEAN CORPUSCULAR HEMOGLOBIN 24.8 pg (28-32); MEAN CORPUSCULAR HGB CONC 30.8 g/dL (31-35); MEAN CORPUSCULAR VOLUME 80.5 fL (81-99); MONOCYTES # (AUTO) 0.5 (0.2-0.8); MONOCYTES % 16.8 % (4.4-11.3); NEUTROPHILS # (AUTO) 1.5 (2.1-6.9); NEUTROPHILS % 52.3 % (38.7-80.0); PLATELET COUNT 137 x10e3/uL (140-360); RED BLOOD COUNT 3.75 x10e6/uL (3.6-5.1); RED CELL DISTRIBUTION WIDTH 15.4 % (11.7-14.4)
[2018-05-21 06:20] LABS: ANION GAP 9.4 mmol/L (8-16); BLOOD UREA NITROGEN 12 mg/dL (7-26); BUN/CREATININE RATIO 13 (6-25); CALCIUM 8.7 mg/dL (8.4-10.2); CARBON DIOXIDE 25 mmol/L (22-29); CHLORIDE 109 mmol/L (98-107); CREATININE, SERUM 0.93 mg/dL (0.57-1.11); EST GLOMERULAR FILTRATION RATE > 60 ML/MIN (60-); GLUCOSE 92 mg/dL (74-118); POTASSIUM 4.4 mmol/L (3.5-5.1); SODIUM 139 mmol/L (136-145)
[2018-05-21 07:36] VITALS: BP 180/79
[2018-05-21] MEDS: PANTOPRAZOLE SOD 40 MG TABEC PO SCH (10:36)
[2018-05-21] MEDS: ISOSORBIDE MONONITRATE 30 MG TAB CR PO SCH (10:37)
[2018-05-21] MEDS: FAMOTIDINE 20 MG/2 ML VIAL IV SCH ×2 (10:37→18:21)
[2018-05-21] MEDS: LOSARTAN POTASSIUM 100 MG TAB PO SCH (10:38)
--- NOTE | 2018-05-21 10:49 | Diagnostic Imaging Report ---
PROCEDURE:X-RAY ABDOMEN - KUB COMPARISON:None. INDICATIONS:SMALL BOWEL OBSTRUCTION FINDINGS: There are no dilated loops of bowel to suggest obstruction. There are no masses or abnormal calcifications. Clips in the right upper quadrant of the abdomen. There is no evidence of free air. Multiple pelvic calcifications are compatible with phleboliths and ovarian vein calcification. Degenerative changes of the spine. CONCLUSION: No acute abdominal abnormality. Yo Kim D.O. Dictated by: Yo Kim D.O. on 05/21/2018 at 11:01 Electronically approved by: Yo Kim D.O. on 05/21/2018 at 11:01
[2018-05-21 11:38] VITALS: BP 198/81
[2018-05-21] MEDS: SODIUM CHLORIDE 0.45% 1,000 ML IV SCH (14:20)
[2018-05-21 15:39] VITALS: BP 189/77
[2018-05-21] MEDS: ENOXAPARIN SOD INJ 40 MG/0.4 ML SYR SC SCH (18:21)
--- NOTE | 2018-05-21 19:29 | NUR ---
Report received and rounds completed. In bed resting, no complaints or concerns at this time.
[2018-05-21 20:00] VITALS: BP 181/81
--- NOTE | 2018-05-21 21:07 | NUR ---
Spoke with Dr Rosenbaum. Patient heart rate in 40's. No Consult for cardiology. Patient asymptomatic bp elevated. Hold all beta blockers, okay to give trazodone 100 mg tonight and vasotec PRN for BP. Continue to monitor. MD to follow up with tomorrow.
[2018-05-21] MEDS: TRAZODONE HCL 50 MG TAB PO SCH (21:12)
[2018-05-21] MEDS: SIMVASTATIN 40 MG TAB PO SCH (21:12)
[2018-05-21] MEDS: ENALAPRILAT IV INJ 1.25 MG/ML VIAL IV PRN (21:13)
--- NOTE | 2018-05-21 22:00 | NUR ---
Resting in bed eyes closed, resp even and unlabored. No distress or discomfort noted. Call light within reach. Will continue to monitor.
[2018-05-21] MEDS: LEVOFLOXACIN 500MG/D5W 100ML 100 ML IV SCH (23:27)
[2018-05-22] VITALS (9 sets, daily range): BP systolic 167–199; BP diastolic 63–88
[2018-05-22] MEDS: METRONIDAZOLE 500MG/NS 100ML IV SCH ×4 (00:31→18:03)
--- NOTE | 2018-05-22 02:00 | NUR ---
Resting, eye closed, resp even and unlabored. Call light within reach. Will continue to monitor
[2018-05-22] MEDS: SODIUM CHLORIDE 0.45% 1,000 ML IV SCH ×2 (03:23→22:43)
[2018-05-22] MEDS: MORPHINE SULFATE INJ 4 MG/ML INJ 1ML IV PRN ×4 (03:24→18:03)
[2018-05-22] MEDS: ENALAPRILAT IV INJ 1.25 MG/ML VIAL IV PRN ×2 (04:22→22:39)
--- NOTE | 2018-05-22 06:14 | NUR ---
Resting, eyes closed, resp even and unlabored. Call light within reach. Will continue to monitor.
[2018-05-22] MEDS ORDERED: PREDNISOLO15 MG/5 ML OP (07:07)
[2018-05-22] MEDS: PANTOPRAZOLE SOD 40 MG TABEC PO SCH (09:52)
[2018-05-22] MEDS: FAMOTIDINE 20 MG/2 ML VIAL IV SCH ×2 (09:52→17:29)
[2018-05-22] MEDS: ISOSORBIDE MONONITRATE 30 MG TAB CR PO SCH (09:53)
[2018-05-22] MEDS: LOSARTAN POTASSIUM 100 MG TAB PO SCH (09:53)
--- NOTE | 2018-05-22 13:20 | NUR ---
Visit made by the Spiritual Care Department Pastoral Visitor, Roma Pete. Pt sleeping soundly and no family present. Pastoral Visitor left a card describing availability of gunner's mate m and instructions on how to contact a gunner's mate m. TING VALDES Sanitary Plumber Spiritual Care Department O: [phone] Pager: [phone] ([phone] calling from)
[2018-05-22] MEDS: ENOXAPARIN SOD INJ 40 MG/0.4 ML SYR SC SCH (17:29)
--- NOTE | 2018-05-22 19:00 | NUR ---
Report and rounds completed. In bed watching TV with visitor at bedside. Call light within reach. No issues or concerns. Will continue to monitor.
[2018-05-22] MEDS: SIMVASTATIN 40 MG TAB PO SCH (20:51)
[2018-05-22] MEDS: TRAZODONE HCL 50 MG TAB PO SCH (20:51)
--- NOTE | 2018-05-22 22:20 | NUR ---
In bed resting, eyes closed, resp even and unlabored. BP reassessed 167/63, 54. Will give PRN medication for BP. Assisted to bathroom with stand by assist and back to bed. Bed alarm on and working. Call light within reach. No issues or concerns at this time. Will continue to monitor.
[2018-05-22] MEDS: LEVOFLOXACIN 500MG/D5W 100ML 100 ML IV SCH (23:35)
[2018-05-23] VITALS (8 sets, daily range): BP systolic 153–188; BP diastolic 69–81
[2018-05-23] MEDS: METRONIDAZOLE 500MG/NS 100ML IV SCH ×4 (00:58→17:39)
--- NOTE | 2018-05-23 02:00 | NUR ---
Resting in bed, eyes closed, resp even and unlabored. Call light within reach. Will continue to monitor.
[2018-05-23] MEDS: SODIUM CHLORIDE 0.45% 1,000 ML IV SCH (03:00)
[2018-05-23] MEDS: MORPHINE SULFATE INJ 4 MG/ML INJ 1ML IV PRN ×3 (03:35→15:50)
[2018-05-23] MEDS: ONDANSETRON HCL INJ 2MG/ML 2ML 2 MG/ML VIAL IV PRN ×3 (03:35→15:50)
[2018-05-23] MEDS: ENALAPRILAT IV INJ 1.25 MG/ML VIAL IV PRN (04:48)
[2018-05-23 05:39] LABS: BASOPHILS % 0.4 % (0.0-1.0); EOSINOPHILS % 1.1 % (0.0-6.0); HEMATOCRIT 28.3 % (34.2-44.1); HEMOGLOBIN 8.9 g/dL (12.0-16.0); LYMPHOCYTES # (AUTO) 0.7 (1.0-3.2); LYMPHOCYTES % 26.6 % (18.0-39.1); MEAN CORPUSCULAR HEMOGLOBIN 25.1 pg (28-32); MEAN CORPUSCULAR HGB CONC 31.4 g/dL (31-35); MEAN CORPUSCULAR VOLUME 79.7 fL (81-99); MONOCYTES # (AUTO) 0.5 (0.2-0.8); MONOCYTES % 17.9 % (4.4-11.3); NEUTROPHILS # (AUTO) 1.4 (2.1-6.9); NEUTROPHILS % 53.6 % (38.7-80.0); PLATELET COUNT 120 x10e3/uL (140-360); RED BLOOD COUNT 3.55 x10e6/uL (3.6-5.1); RED CELL DISTRIBUTION WIDTH 15.1 % (11.7-14.4)
--- NOTE | 2018-05-23 05:54 | NUR ---
Dr Rosenbaum notified: Vasotec given x2. BP for second dose of vasotec 0.625mg BP 188/76, 56 at 0448, BP rechecked and 194/81, 54. Order: give am cozaar 100 mg now. Continue to monitor.
[2018-05-23] MEDS: LOSARTAN POTASSIUM 100 MG TAB PO SCH (05:57)
[2018-05-23 06:12] LABS: ANION GAP 8.3 mmol/L (8-16); BLOOD UREA NITROGEN 8 mg/dL (7-26); BUN/CREATININE RATIO 9 (6-25); CALCIUM 8.3 mg/dL (8.4-10.2); CARBON DIOXIDE 24 mmol/L (22-29); CHLORIDE 110 mmol/L (98-107); CREATININE, SERUM 0.85 mg/dL (0.57-1.11); EST GLOMERULAR FILTRATION RATE > 60 ML/MIN (60-); GLUCOSE 91 mg/dL (74-118); SODIUM 139 mmol/L (136-145)
[2018-05-23 06:15] LABS: POTASSIUM 3.3 mmol/L (3.5-5.1)
--- NOTE | 2018-05-23 06:21 | NUR ---
Called left message for Dr Rosenbaum: Lab alert potassium 3.3. Awaiting call back.
[2018-05-23] MEDS ORDERED: NIFEDIPINE CR 30 MG TAB PO ONE (08:15)
[2018-05-23] MEDS: PANTOPRAZOLE SOD 40 MG TABEC PO SCH (08:44)
[2018-05-23] MEDS: ISOSORBIDE MONONITRATE 30 MG TAB CR PO SCH (08:52)
[2018-05-23] MEDS: FAMOTIDINE 20 MG/2 ML VIAL IV SCH ×2 (08:52→17:39)
--- NOTE | 2018-05-23 13:33 | NUR ---
EDUCATED ABOUT IMM, SIGNED, FILED IN CHART, WITH COPY LEFT WITH FAMILY AT BEDSIDE. PT FLIPPED TO INPATIENT IS REASON FOR IMM.
--- NOTE | 2018-05-23 13:36 | NUR ---
SOCIAL WORK INITIAL ASSESSMENT Child And Family Therapist to bedside to discuss plan of care with patient/family. CM/SW role and care transitions discussed. Anticipated discharge plan discussed along with duration of care. CM/SW discussed patients right to make decisions in care. CM/SW work hours given. Patient lives: IN HOUSE BY SELF Admit/Transfer: VIA ED POA/Emergency contact: JOSE PATEL [phone] Current/Previous Home Health: NONE PCP/Follow-up Care: [facility] Current/Previous DME: [employer] FOR USE AT HOME Other Services: NONE Employment Status: RETIRED Areas of Concerns: NONE Referral Needs: NONE Education Needs: NONE IMM/HERNANDES given and signed (if applicable): IMM Goal for discharge: RETURN HOME INDEPENDENTLY CM/SW left business card at the bedside with contact information. Name and number was also written on the patients whiteboard. Patient verbalized understanding of discussion. CM will follow-up with ongoing discharge and transition of care needs.
[2018-05-23] MEDS: ENOXAPARIN SOD INJ 40 MG/0.4 ML SYR SC SCH (17:39)
--- NOTE | 2018-05-23 18:08 | NUR ---
RCD PT FROM OBS BY BED PT IS ALERT AND ORIENTED VITALS CHECKED PT RESTING ON BED BED LOW AND LOCKED CALL LIGHT IN REACH
--- NOTE | 2018-05-23 19:00 | NUR ---
PT RESTING ON BED BED SIDE REPORT GIVEN TO ONCOMING NURSE
[2018-05-23] MEDS: TRAZODONE HCL 50 MG TAB PO SCH (21:36)
[2018-05-23] MEDS: LEVOFLOXACIN 500MG/D5W 100ML 100 ML IV SCH (23:20)
[2018-05-24] VITALS (7 sets, daily range): BP systolic 131–161; BP diastolic 6–72
[2018-05-24] MEDS: METRONIDAZOLE 500MG/NS 100ML IV SCH ×4 (00:39→17:20)
[2018-05-24] MEDS: MORPHINE SULFATE INJ 4 MG/ML INJ 1ML IV PRN ×3 (02:04→21:36)
[2018-05-24] MEDS: NIFEDIPINE CR 30 MG TAB PO SCH ×2 (06:00→09:00)
--- NOTE | 2018-05-24 07:00 | NUR ---
RCD PT BED PT IS ALERT AND ORIENTED PT RESTING ON BED NO SIGNS OF ANY DISTRESS NOTED FAMILY AT BED SIDE BED LOW AND LOCKED CALL LIGHT IN REACH
--- NOTE | 2018-05-24 07:09 | NUR ---
REPORT GIVEN TO ONCOMING NURSE,WALKING ROUNDS MADE.PT RESTING IN BED WITH NO S/S OF DISTRESS.
[2018-05-24] MEDS: PANTOPRAZOLE SOD 40 MG TABEC PO SCH (07:30)
--- NOTE | 2018-05-24 07:54 | Diagnostic Imaging Report ---
Exam: KUB-2 views Clinical History: Abdominal pain. Comparison: KUB 05/21/[address] Abdomen/Pelvis 05/19/2018. Findings: Somewhat limited study by portable technique, motion, and soft tissue attenuation. Nonobstructive bowel gas pattern. Calcified phleboliths in the right lower quadrant and bladder. No acute osseous abnormality. Degenerative changes of visualized spine. Impression: No acute radiographic abnormality. Signed by: Dr. Zahra Ellis MD on 05/24/2018 7:51 AM
[2018-05-24] MEDS: ISOSORBIDE MONONITRATE 30 MG TAB CR PO SCH (09:00)
[2018-05-24] MEDS: LOSARTAN POTASSIUM 100 MG TAB PO SCH (09:00)
[2018-05-24] MEDS: FAMOTIDINE 20 MG/2 ML VIAL IV SCH ×2 (09:00→16:48)
[2018-05-24] MEDS ORDERED: POTASSIUM CHLORIDE 10MEQ EA PO ONE (10:00)
[2018-05-24] MEDS ORDERED: POTASSIUM CHLORIDE 20 MEQ TAB CR PO ONE (12:26)
[2018-05-24] MEDS: ONDANSETRON HCL INJ 2MG/ML 2ML 2 MG/ML VIAL IV PRN (12:33)
--- NOTE | 2018-05-24 19:20 | NUR ---
PT RESTING ON BED BED SIDE REPORT GIVEN TO ONCOMING NURSE
[2018-05-24] MEDS: TRAZODONE HCL 50 MG TAB PO SCH (21:22)
[2018-05-24] MEDS: LEVOFLOXACIN 500MG/D5W 100ML 100 ML IV SCH (23:15)
[2018-05-25] VITALS (9 sets, daily range): BP systolic 129–198; BP diastolic 60–77
[2018-05-25] MEDS: METRONIDAZOLE 500MG/NS 100ML IV SCH ×3 (00:45→12:06)
[2018-05-25 05:39] LABS: BASOPHILS % 0.3 % (0.0-1.0); EOSINOPHILS % 1.4 % (0.0-6.0); HEMATOCRIT 32.2 % (34.2-44.1); HEMOGLOBIN 9.9 g/dL (12.0-16.0); LYMPHOCYTES # (AUTO) 1.1 (1.0-3.2); LYMPHOCYTES % 36.3 % (18.0-39.1); MEAN CORPUSCULAR HEMOGLOBIN 24.7 pg (28-32); MEAN CORPUSCULAR HGB CONC 30.7 g/dL (31-35); MEAN CORPUSCULAR VOLUME 80.3 fL (81-99); MONOCYTES # (AUTO) 0.5 (0.2-0.8); MONOCYTES % 17.3 % (4.4-11.3); NEUTROPHILS # (AUTO) 1.3 (2.1-6.9); NEUTROPHILS % 44.7 % (38.7-80.0); PLATELET COUNT 133 x10e3/uL (140-360); RED BLOOD COUNT 4.01 x10e6/uL (3.6-5.1); RED CELL DISTRIBUTION WIDTH 15.6 % (11.7-14.4)
[2018-05-25 05:56] LABS: ANION GAP 8.3 mmol/L (8-16); BLOOD UREA NITROGEN 6 mg/dL (7-26); BUN/CREATININE RATIO 7 (6-25); CALCIUM 8.4 mg/dL (8.4-10.2); CARBON DIOXIDE 25 mmol/L (22-29); CHLORIDE 113 mmol/L (98-107); CREATININE, SERUM 0.83 mg/dL (0.57-1.11); EST GLOMERULAR FILTRATION RATE > 60 ML/MIN (60-); GLUCOSE 90 mg/dL (74-118); POTASSIUM 3.3 mmol/L (3.5-5.1); SODIUM 143 mmol/L (136-145)
[2018-05-25] MEDS: ENALAPRILAT IV INJ 1.25 MG/ML VIAL IV PRN ×2 (06:11→12:06)
--- NOTE | 2018-05-25 07:05 | NUR ---
Received patient mid fowlers position, side rails upx2, call light within reach. AAOX3 to time, person, place. Respirations even and unlabored. Denies any pain at this time. Instructed to use call light for assistance. Voiced understanding. Will continue to monitor.
--- NOTE | 2018-05-25 07:18 | NUR ---
REPORT GIVEN TO ONCOMING NURSE,WALKING ROUNDS MADE.PT RESTING IN BED WITH NO S/S OF DISTRESS.
[2018-05-25] MEDS: FAMOTIDINE 20 MG/2 ML VIAL IV SCH ×2 (08:25→15:35)
[2018-05-25] MEDS: PANTOPRAZOLE SOD 40 MG TABEC PO SCH (08:25)
[2018-05-25] MEDS: ISOSORBIDE MONONITRATE 30 MG TAB CR PO SCH (08:25)
[2018-05-25] MEDS: NIFEDIPINE CR 30 MG TAB PO SCH (08:25)
[2018-05-25] MEDS: LOSARTAN POTASSIUM 100 MG TAB PO SCH (08:25)
--- NOTE | 2018-05-25 12:06 | NUR ---
[id number]/77 PRN vasotec given. Will continue to monitor
[2018-05-25] MEDS: MORPHINE SULFATE INJ 4 MG/ML INJ 1ML IV PRN (12:11)
--- NOTE | 2018-05-25 12:50 | NUR ---
BP 133/60 P60
--- NOTE | 2018-05-25 14:00 | NUR ---
aware of noon vital signs. See orders
[2018-05-25] MEDS ORDERED: POTASSIUM CHLORIDE 10MEQ EA PO ONE (14:15)
[2018-05-25] MEDS ORDERED: POTASSIUM CHLORIDE 20 MEQ TAB CR PO ONE (14:30)
[2018-05-25] MEDS ORDERED: NIFEDIPINE CR 30 MG TAB PO ONE (14:30)
[2018-05-25] MEDS ORDERED: PROCARDIA XL30 MG PO (14:44)
[2018-05-25] MEDS ORDERED: ZOFRAN4 MG SL ×2 (14:45→14:55)
[2018-05-25] MEDS ORDERED: REGLAN5 MG PO ×2 (14:46→14:56)
[2018-05-25] MEDS ORDERED: NIFEDIPINE ER60 M1 PO (14:54)
--- NOTE | 2018-05-25 15:55 | NUR ---
Right FA IV discontinued. No signs of infiltration noted. 2x2 gauze and tape placed. Taken via wheelchair by PCT to personal car. Accompanied by son. AAOX3 to time, person, place. Respirations even and unlabored. Discharge instructions, rx, and all personal belongings taken with patient.
== END 2018-05-25 15:55 | disposition home or self-care (01) | DRG 390 ==
LOC: ER 20:43 → INTOOBSV 23:56 → ERHOLD 23:56 → IMCU 05-20 08:13 → INTOOBSV 05-21 13:11 → OBSVTOIN 05-21 13:11 → MED/SURG2 05-23 18:04
PROVIDERS: ADMIT Internal Medicine; ATTEND Internal Medicine
DX: K56.51 Intestinal adhesions [bands], with partial obstruction (principal); I10 Essential (primary) hypertension; E87.6 Hypokalemia; E78.5 Hyperlipidemia, unspecified; K21.0 Gastro-esophageal reflux disease with esophagitis; D64.9 Anemia, unspecified; M19.90 Unspecified osteoarthritis, unspecified site; K52.9 Noninfective gastroenteritis and colitis, unspecified; E66.9 Obesity, unspecified; Z68.32 Body mass index [BMI] 32.0-32.9, adult; Z88.0 Allergy status to penicillin; Z91.018 Allergy to other foods
CPT/HCPCS: 36415; 74018; 74177; 80048; 80053; 81001; 82150; 82550; 82553; 83605; 83690; 84484; 85025; 93005; 93306; 96361; 96367; 96376; 99284; G0378; J1650; J1885; J1956; J2270; J2405; J7121; Q9967

== ENCOUNTER 2019-08-07 09:20 | Inpatient (IN) | payer MEDICARE, OTHER ==
[~2019-08-07] VITALS: Ht 10.2 cm; Wt 68.0 kg
[~2019-08-07 09:20] MED LIST changes: +ASPIRIN81 MG PO; +CRESTOR10 MG PO; +DOCUSATE SODIU100 MG PO; +FERROUS SULFAT324 MG PO; +NIFEDIPINE ER60 M1 PO; +PREDNISOLO15 MG/5 ML OP; +PROCARDIA XL30 MG PO; +REGLAN5 MG PO; +ZOFRAN4 MG SL
--- OUTSIDE RECORDS SUMMARY | 2019-08-07 09:26 | XMS REPORT ---
Author Author [facility] t Organization [facility] t Address [address] [place] [address] Phone Unavailable Care Team Providers Care Management Professional Name Role Phone Summer RAYA MD (HENRY) SILVANO PCP Candido QUIÑONEZ Attphys Unavailable JASMINA KOHLI Attphygalileo Unavailable JASMINA KOHLI Admparag Unavailable Payers Payer Name Policy Type Policy Number Effective Date Expiration Date S david [employer] [id number] 2018 00:00:00 [facility] [employer] [facility] [id number] 2018 00:00:00 [facility] [employer] [id number] 2017 00:00:00 [facility] Problems Condition Name Condition Details Condition Category Status Onset Date Resolution Date Last Treatment Date Treating Clinician Comments Source Decreased blood leukocyte number Decreased Blood Leukocyte Numbe r Problem Active 2016-05-20 00:00:00 [facility] Neoplasm of adrenal gland Neoplasm of Adrenal Gland Problem Ac tive 2016-04-22 00:00:[address] [facility] Simple renal cyst Simple Renal Cyst Problem Active 2016-04-22 00:00:[address] [facility] Herpesvirus infection Herpesvirus Infection Problem Active 201 09-05-05 00:00:00 [facility] P ractice History of total knee arthroplasty History of Total Knee Arthrop lasty Problem Active 2015-08-18 00:00:00 [facility] Anemia Anemia Problem Active 2015-07-31 00:00:00 [facility] Hypokalemia Hypokalemia Problem Active 2015-07-31 00:00:00 [facility] Vomiting Vomiting Problem Active 2015-07-31 00:00:00 [facility] Weakness Weakness Problem Active 2015-07-31 00:00:00 [facility] Idiopathic osteoarthritis Idiopathic Osteoarthritis Problem Ac tive 2015-04-14 00:00:[address] [facility] Pure hypercholesterolemia Pure Hypercholesterolemia Problem Ac tive 2015-01-06 00:00:[address] [facility] Alpha trait thalassemia Alpha Trait Thalassemia Problem Active 2015-01-06 00:00:[address] [facility] Hypertensive heart disease Hypertensive Heart Disease Problem Active 2015-01-06 00:00:[address] [facility] Temporomandibular joint disorder Temporomandibular Joint Disorde r Problem Active 2015-01-06 00:00:00 [facility] Gastroesophageal reflux disease without esophagitis Ga stroesophageal Reflux Disease without Esophagitis Problem Active 2015-01-06 00:00:[address] [facility] Constipation Constipation Problem Active 2015-01-06 00:00:[address] [facility] Vascular insufficiency of intestine Ischemic colitis, enteritis, or enterocolitis Problem Active [facility] Chest pain Chest pain Problem Active [facility] Body mass index 30+ - obesity Body Mass Index 30+ - Obesity Problem Active 2016-10-18 00:00:00 2017-01-19 00:00:00 [facility] Pain in right knee Pain in Right Knee Problem Active 2015-03-27 9 00:00:00 2016-10-18 00:00:00 [facility] Screening for disorder Screening for Disorder Problem Active 2015-04-14 00:00:00 2016-05-19 00:00:[address] [facility] Allergies, Adverse Reactions, Alerts Allergy Name Allergy Type Status Severity Reaction(s) Onset Date Inacti ve Date Treating Clinician Comments Source Kiwi Allergy to Substance Active Unknown IRRITATES TONGUE 2016-02-22 00:00:00 [facility] PENICILLINS Allergy to substance Active 2015-08-18 00:00:[address] [facility] Penicillin Allergy to Substance Active Mild RASH 2015-07-31 00:00:00 [facility] Social History Smoking Status Start Date Stop Date Source Never Smoker [facility] ractice Medications Ordered Medication Name Filled Medication Name Start Date Stop Da te Current Medication? Ordering Clinician Indication Dosage Frequency Signature (SIG) Comments Components Source dicyclomine 10 mg capsule dicyclomine 10 mg capsule 2016-12-06 0 0:00:00 2017-01-19 00:00:00 No dicyclomine 10 mg ca psule [facility] Aspirin 325 Mg Tab, 325 Mg Oral Aspirin 325 Mg Tab, 325 Mg O ral 2015-07-28 00:00:00 2015-08-05 00:00:00 No Andrew De [place] [facility] 325 Twice A Day [facility] Aspirin 81 Mg Tab.chew Aspirin 81 Mg Tab.chew Yes 81 Daily [facility] Docusate Sodium 100 Mg Capsule Docusate Sodium 100 Mg Capsule Yes 100 Daily [facility] Ferrous Sulfate 324 Mg Tablet. Ferrous Sulfate 324 Mg Tablet. Yes 324 Daily [facility] Furosemide 40 Mg Tablet Furosemide 40 Mg Tablet Yes 40 Daily [facility] Isosorbide Mononitrate (Isosorbide Mononitrate Er) 30 Mg Tab.er.24h Isosorbide Mononitrate (Isosorbide Mononitrate Er) 30 Mg Tab.er.24h Yes 30 Daily [facility] Linzess Linzess Yes 145 Daily [facility] Losartan Potassium 100 Mg Tablet Losartan Potassium 100 Mg Tablet Yes 100 Daily [facility] Metoclopramide Hcl (Reglan) 5 Mg Tablet Metoclopramide Hcl ( Reglan) 5 Mg Tablet Yes 5 Twice A Day [facility] Nifedipine (Procardia Xl) 30 Mg Tab.er.24 Nifedipine ( Procardia Xl) 30 Mg Tab.er.24 Yes 60 Every Morning I [facility] Omeprazole 40 Mg Capsule. Omeprazole 40 Mg Capsule. Yes 40 Daily [facility] Ondansetron Hcl (Zofran*) 4 Mg Tablet Ondansetron Hcl (Zofran*) 4 M g Tablet Yes 4 Every 4 Hours as needed for Nausea [facility] Potassium Chloride (K Dur*) 10 Meq Tabcr Potassium Chl oride (K Dur*) 10 Meq Tabcr Yes 20 Daily [facility] Prednisolone 15 Mg/5 Ml Solution Prednisolone 15 Mg/5 Ml Solution Yes 1 Daily [facility] Rosuvastatin Calcium (Crestor) 10 Mg Tab Rosuvastatin Calcium (Crestor) 10 Mg Tab Yes 40 Daily [facility] Trazodone Hcl 50 Mg Tablet Trazodone Hcl 50 Mg Tablet Yes 100 Bedtime [facility] atenolol 25 mg tablet TAKE ONE TABLET BY MOUTH ONCE A DAY AT BEDTIME. atenolol 25 mg tablet TAKE ONE TABLET BY MOUTH ONCE A DAY AT BEDTIME. No atenolol 25 mg tablet TAKE ONE TABLET BY MOUTH ONCE A DAY AT BEDTIME. [facility] atorvastatin 40 mg tablet TAKE ONE TABLET BY MOUTH ONC E A DAY. atorvastatin 40 mg tablet TAKE ONE TABLET BY MOUTH ONCE A DAY. No atorvastatin 40 mg tablet TAKE ONE TABLET BY MOUTH ONCE A DAY. [facility] furosemide 40 mg tablet TAKE ONE TABLET BY MOUTH EVERY MORNING. furosemide 40 mg tablet TAKE ONE TABLET BY MOUTH EVERY MORNING. No furosemide 40 mg tablet TAKE ONE TABLET BY MOUTH EVERY MORNING. [facility] isosorbide mononitrate ER 30 mg tablet,extended releas e 24 hr isosorbide mononitrate ER 30 mg tablet,extended release 24 hr No isosorbide mononitrate ER 30 mg tablet,extended release [address] [facility] Lidocaine Viscous 2 % mucosal solution Lidocaine Viscous 2 % muc osal solution No Lidocaine Viscous 2 % mucosal so lution [facility] Linzess 145 mcg capsule TAKE ONE CAPSULE BY MOUTHEVERY DAY. Linzess 145 mcg capsule TAKE ONE CAPSULE BY MOUTHEVERY DAY. No Linzess 145 mcg capsule TAKE ONE CAPSULE BY MOUTHEVERY DAY. [facility] losartan 100 mg tablet TAKE ONE TABLET BY MOUTH ONCE A DAY. losartan 100 mg tablet TAKE ONE TABLET BY MOUTH ONCE A DAY. No losartan 100 mg tablet TAKE ONE TABLET BY MOUTH ONCE A DAY. [facility] morphine ER 100 mg tablet,extended release morphine ER 100 mg tablet,extended release No morphine ER 100 mg tablet,exte nded release [facility] omeprazole 40 mg capsule,delayed release Take 1 capsule every day by oral route for 90 days. omeprazole 40 mg capsule,delayed release Take 1 capsule every day by oral route for 90 days. No 1capsule(s) Q 1D omeprazole 40 mg capsule,delayed release Take 1 capsule every day by oral route for [address] [facility] polyethylene glycol 3350 17 gram/dose oral powder poly ethylene glycol 3350 17 gram/dose oral powder No po lyethylene glycol 3350 17 gram/dose oral powder [facility] ice potassium chloride ER 10 mEq tablet,extended release p otassium chloride ER 10 mEq tablet,extended release No potassium chloride ER 10 mEq tablet,extended release [facility] ractice trazodone 100 mg tablet trazodone 100 mg tablet No trazodone 100 mg tablet [facility] ice trazodone 50 mg tablet trazodone 50 mg tablet No trazodone 50 mg tablet [facility] valacyclovir 500 mg tablet valacyclovir 500 mg tablet No valacyclovir 500 mg tablet [facility] Atenolol 50 Mg Tablet, 12.5 Mg Oral Atenolol 50 Mg Tablet, 12.5 Mg Oral 2018-05-25 00:00:00 No 12.5 Twice A Day [facility] Atorvastatin Calcium 20 Mg Tablet, 40 Mg Oral Atorvast atin Calcium 20 Mg Tablet, 40 Mg Oral 2018-05-19 00:00:00 No 40 Bedtime [facility] Atenolol 50 Mg Tablet, 25 Mg Oral Atenolol 50 Mg Tablet, 25 Mg O ral 2017-08-15 00:00:00 No 25 Bedtime [facility] Dicyclomine Hcl (Bentyl) 10 Mg Capsule, 10 Mg Oral Dic yclomine Hcl (Bentyl) 10 Mg Capsule, 10 Mg Oral 2017-08-13 00:00:00 No 10 B efore Meals [facility] Furosemide 40 Mg Tablet, 40 Mg Oral Furosemide 40 Mg Tablet, 40 Mg Oral 2017-08-13 00:00:00 No 40 Daily [facility] Gabapentin 300 Mg Capsule, 600 Mg Oral Gabapentin 300 Mg Capsule , 600 Mg Oral 2017-08-13 00:00:00 No 600 Three Times A Day [facility] Ondansetron (Zofran Odt) 4 Mg Tab.rapdis, 4 Mg Oral On dansetron (Zofran Odt) 4 Mg Tab.rapdis, 4 Mg Oral 2017-08-13 00:00:00 No 4 Every 4 Hours as needed for Nausea [facility] gabapentin 600 mg tablet gabapentin 600 mg tablet 2017-07-03 00: 00:00 No gabapentin 600 mg tablet [facility] loperamide 2 mg capsule loperamide 2 mg capsule 2017-07-03 00:00 :00 No loperamide [address] [facility] promethazine-DM 6.25 mg-15 mg/5 mL syrup take 1 or 2 tsp every 6 hours as needed for cough promethazine-DM 6.25 mg-15 mg/5 mL syrup take 1 or 2 tsp every 6 hours as needed for cough 2017-07-03 00:00:00 No promethazine-DM 6.25 mg-15 mg/5 mL syrup take 1 or 2 tsp every 6 hours as needed for cough [facility] metoprolol succinate ER 50 mg tablet,ext ended release 24 hr Take 1 tablet every day by oral route at bedtime for 90 days. metoprolol succinate ER 50 mg tablet,extended release 24 hr Take 1 tablet every day by oral route at bedtime for 90 days. 2017-03-28 00:00:00 No 1 Q1D metoprolol succinate ER 50 mg tablet,extended release 24 hr Take 1 tablet every day by oral route at bedtime for [facility]. [facility] Mov[facility] mg tablet Movantik 25 mg tablet 2017-01-19 00:00:00 No Movantik 25 mg tablet [facility] ctice Amitiza 24 mcg capsule Amitiza 24 mcg capsule 2016-12-06 00:00:00 No Amitiza 24 mcg capsule [facility] actice TriLyte With Flavor Packets 420 gram oral solution Tri Lyte With Flavor Packets 420 gram oral solution 2016-12-06 00:00:00 No TriLyte With Flavor Packets 420 gram oral solution [facility] clotrimazole 1 % topical cream clotrimazole 1 % topical cream 2016-10-18 00:00:00 No clotrimazole 1 % topical cream [facility] Clotrimazole-3 2 % vaginal cream Insert 1 applicatorful every day by vaginal route at bedtime for 3 days. Clotrimazole-3 2 % vaginal cream Insert 1 applicatorful every day by vaginal route at bedtime for 3 days. 2016-10-18 00:00:00 No 1applicator(s)ful Q1D Clotrim azole-3 2 % vaginal cream Insert 1 applicatorful every day by vaginal route at bedtime for [address] [facility] nitrofurantoin monohydrate/macrocrystals 100 mg capsul e nitrofurantoin monohydrate/macrocrystals 100 mg capsule 2016-10-18 00:00:00 No nitrofurantoin monohydrate/macrocrystals [address] [facility] terconazole 0.8 % vaginal cream terconazole 0.8 % vaginal cream 2016-10-18 00:00:00 No terconazole 0.8 % vaginal cream [facility] Amitiza 8 mcg capsule Amitiza 8 mcg capsule 2016-09-21 00:00:00 No Amitiza 8 mcg capsule [facility] ctice Tylenol Arthritis Pain 650 mg tablet,ext ended release Take 2 tablets every 8 hours by oral route for 7 days. Tylenol Arthritis Pain 650 mg tablet,ext ended release Take 2 tablets every 8 hours by oral route for 7 days. 2016-07-05 00:00:00 No 2 Q8H Tylenol Arthri tis Pain 650 mg tablet,extended release Take 2 tablets every 8 hours by oral route for [address] [facility] loperamide 2 mg tablet Take 2 tablets 3 times a day by oral route as needed for 10 days. loperamide 2 mg tablet Take 2 tablets 3 times a day by oral route as needed for 10 days. 2016-05-19 00:00:00 No 2 TID loperamide 2 mg tablet Take 2 tablets 3 times a day by oral route as needed for 10 days. [facility] Potassium Chloride 10 Meq Tab.er.prt, 10 Meq Oral Pota ssium Chloride 10 Meq Tab.er.prt, 10 Meq Oral 2016-04-28 00:00:00 No 10 Daily [facility] Lubiprostone (Amitiza) 24 Mcg Capsule, 24 Mcg Oral Lub iprostone (Amitiza) 24 Mcg Capsule, 24 Mcg Oral 2016-04-27 00:00:00 No 24 Twi ce A Day [facility] amlodipine 5 mg tablet amlodipine 5 mg tablet 2016-04-21 00:00:00 No amlodipine 5 mg tablet [facility] actice Acetaminophen 325 Mg Tablet, 650 Mg Oral Acetaminophen 325 Mg Tablet, 650 Mg Oral 2016-03-17 00:00:00 No 650 Every 6 Hours [facility] Atenolol 25 Mg Tablet, 25 Mg Oral Atenolol 25 Mg Tablet, 25 Mg O ral 2016-03-17 00:00:00 No 25 Bedtime [facility] Atorvastatin Calcium (Lipitor) 20 Mg Tablet, 40 Mg Ora l Atorvastatin Calcium (Lipitor) 20 Mg Tablet, 40 Mg Oral 2016-03-17 00:00:00 No 40 Bedtime [facility] Furosemide (Lasix) 40 Mg Tablet, 40 Mg Oral Furosemide (Lasix) 40 Mg Tablet, 40 Mg Oral 2016-03-17 00:00:00 No 40 Daily [facility] Gabapentin 600 Mg Tablet, 600 Mg Oral Gabapentin 600 Mg Tablet, 600 Mg Oral 2016-03-17 00:00:00 No 600 Three Times A Day [facility] Isosorbide Mononitrate (Isosorbide Mononitrate Er) 30 Mg Tab.er.24h, 30 Mg Oral Isosorbide Mononitrate (Isosorbide Mononitrate Er) 30 Mg Tab.er.24h, 30 Mg Oral 2016-03-17 00:00:00 No 30 Daily [facility] Omeprazole 40 Mg Jah., 40 Mg Oral Omeprazole 40 Mg Cap lefty., 40 Mg Oral 2016-03-17 00:00:00 No 40 Twice A Day [facility] Ondansetron (Zofran Odt) 4 Mg Tab.rapdis, 4 Mg Oral On dansetron (Zofran Odt) 4 Mg Tab.rapdis, 4 Mg Oral 2016-03-17 00:00:00 No 4 Every 4 Hours for Nausea [facility] Trazodone Hcl 50 Mg Tablet, 50 Mg Oral Trazodone Hcl 50 Mg Table t, 50 Mg Oral 2016-03-17 00:00:00 No 50 Bedtime [facility] furosemide 20 mg tablet furosemide 20 mg tablet 2016-03-11 00:00 :00 No furosemide [address] [facility] hydrochlorothiazide 25 mg tablet hydrochlorothiazide 25 mg table t 2016-03-11 00:00:00 No hydrochlorothiazide 25 mg table t [facility] meloxicam 15 mg tablet meloxicam 15 mg tablet 2016-03-11 00:00:00 No meloxicam 15 mg tablet [facility] actice naproxen 500 mg tablet naproxen 500 mg tablet 2016-03-11 00:00:00 No naproxen 500 mg tablet [facility] actice silver sulfadiazine 1 % topical cream silver sulfadiazine 1 % to pical cream 2016-03-11 00:00:00 No silver sulfadiazine 1 % topical cream [facility] valacyclovir 1 gram tablet valacyclovir 1 gram tablet 2015 00:00:00 No valacyclovir [address] [facility] Losartan Potassium (Cozaar) 100 Mg Tablet, 100 Mg Oral Losartan Potassium (Cozaar) 100 Mg Tablet, 100 Mg Oral 2016-02-25 00:00:00 No 100 Daily [facility] Potassium Chloride 10 Meq Tablet.er, 10 Meq Oral Potas sium Chloride 10 Meq Tablet.er, 10 Meq Oral 2016-02-25 00:00:00 No 10 D aily [facility] Clonidine (Catapres-Tts 2) 1 Each Patch.tdwk, 1 Each O ral Clonidine (Catapres- Tts 2) 1 Each Patch.tdwk, 1 Each Oral 2016-02-22 00:00:00 No 1 for Elevated Blood Pressure [facility] Enoxaparin Sodium (Lovenox) 60 Mg/0.6 Ml Inj, 40 Mg [place] bcutaneously Enoxaparin Sodium (Lovenox) 60 Mg/0.6 Ml Inj, 40 Mg Subcutaneously 2015 00:00:00 No 40 Daily as needed for Cough [facility] Fe Fumarate/Fa/Mv, Min Comb#15 (Hemocyte Plus Capsule) 1 Each Capsule, 1 Cap Oral Fe Fumarate/Fa/Mv, Min Comb#15 (Hemocyte Plus Capsule) 1 Each Capsule, 1 Cap Oral 2016-02-22 00:00:00 No 1 Twice A Day [facility] Metoclopramide Hcl 10 Mg Tablet, 10 Mg Oral Metoclopra mide Hcl 10 Mg Tablet, 10 Mg Oral 2016-02-22 00:00:00 No 10 Before Meals And At Bedtime [facility] ciprofloxacin 500 mg tablet ciprofloxacin 500 mg tablet 2016-02-12 00:00:00 No ciprofloxacin [address] [facility] clindamycin HCl 150 mg capsule clindamycin HCl 150 mg capsule 2016-02-12 00:00:00 No clindamycin HCl [address] [facility] hydrocodone 7.5 mg-acetaminophen 325 mg tablet hydroco done 7.5 mg-acetaminophen 325 mg tablet 2016-02-12 00:00:00 No hydrocodone 7.5 mg-acetaminophen 325 mg tablet [facility] methylprednisolone 4 mg tablets in a dose pack methylp rednisolone 4 mg tablets in a dose pack 2016-02-12 00:00:00 No methylprednisolone 4 mg tablets in a dose pack [facility] ice ondansetron HCl 4 mg tablet ondansetron HCl 4 mg tablet 2016-02-12 00:00:00 No ondansetron HCl [address] [facility] ondansetron HCl 8 mg tablet ondansetron HCl 8 mg tablet 2016-02-12 00:00:00 No ondansetron HCl [address] [facility] sulfamethoxazole 400 mg-trimethoprim 80 mg tablet sulf amethoxazole 400 mg- trimethoprim 80 mg tablet 2016-02-12 00:00:00 No sulfamethoxazole 400 mg-trimethoprim 80 mg tablet [facility] trazodone 150 mg tablet trazodone 150 mg tablet 2016-02-12 00:00 :00 No trazodone [address] [facility] Furosemide 40 Mg Tablet, 40 Mg Oral Furosemide 40 Mg Tablet, 40 Mg Oral 2015-08-05 00:00:00 No 40 Daily [facility] Hydrochlorothiazide 25 Mg Tablet, 25 Mg Oral Hydrochlo rothiazide 25 Mg Tablet, 25 Mg Oral 2015-08-05 00:00:00 No 25 Daily [facility] Hydrocodone Bit/Acetaminophen (Hydrocodo n-Acetaminoph 7.5-325) 1 Each Tablet, 1 Tab Oral Hydrocodone Bit/Acetaminophen (Hydrocodo n-Acetaminoph 7.5-325) 1 Each Tablet, 1 Tab Oral 2015-08-05 00:00:00 No 1 Every 4 Hours [facility] Lubiprostone (Amitiza) 24 Mcg Capsule, 24 Mcg Oral Lub iprostone (Amitiza) 24 Mcg Capsule, 24 Mcg Oral 2015-08-05 00:00:00 No 24 Tiffanie ly [facility] Morphine Sulfate (Morphine Sulfate Er) 100 Mg Tablet.e r, 100 Mg Oral Morphine Sulfate (Morphine Sulfate Er) 100 Mg Tablet.er, 100 Mg Oral 2015-08-05 00:00:00 No 100 As Needed [facility] Ondansetron Hcl 8 Mg Tablet, 8 Mg Oral Ondansetron Hcl 8 Mg Tabl et, 8 Mg Oral 2015-08-05 00:00:00 No 8 As Needed [facility] Valacyclovir Hcl (Valacyclovir) 1,000 Mg Tablet, 1000 Mg Oral Valacyclovir Hcl (Valacyclovir) 1,000 Mg Tablet, 1000 Mg Oral 2015-08-05 00:00:00 No 1000 As Needed [facility] Naproxen 500 Mg Tablet, 500 Mg Oral Naproxen 500 Mg Tablet, 500 Mg Oral 2015-07-28 00:00:00 No 500 Twice A Day [facility] Duloxetine Hcl (Cymbalta) 30 Mg Capsule., 60 Mg Oral Duloxetine Hcl (Cymbalta) 30 Mg Capsule., 60 Mg Oral 2015-07-24 00:00:00 No 60 Daily [facility] Gabapentin 300 Mg Capsule, 300 Mg Oral Gabapentin 300 Mg Capsule , 300 Mg Oral 2015-07-24 00:00:00 No 300 2-3 Times Daily [facility] Linzess , 290 Mcg Oral Linzess , 290 Mcg Oral 2015-07-24 00:00:0 0 No 290 Daily [facility] Losartan Potassium 100 Mg Tablet, 100 Mg Oral Losartan Potassium 100 Mg Tablet, 100 Mg Oral 2015-07-24 00:00:00 No 100 Daily [facility] Meloxicam 7.5 Mg Tablet, 15 Mg Oral Meloxicam 7.5 Mg Tablet, 15 Mg Oral 2015-07-24 00:00:00 No 15 Daily [facility] Tramadol Hcl 50 Mg Tablet, 50 Mg Oral Tramadol Hcl 50 Mg Tablet, 50 Mg Oral 2015-07-24 00:00:00 No 50 as needed [facility] Acyclovir 400 Mg Tablet, 400 Mg Oral Acyclovir 400 Mg Tablet, 40 0 Mg Oral 2014-05-07 00:00:00 No 400 2-3 Times Daily [facility] Hydrochlorothiazide (Esidrix*) 25 Mg Tab, 25 Mg Oral H ydrochlorothiazide (Esidrix*) 25 Mg Tab, 25 Mg Oral 2014-05-07 00:00:00 No 25 Daily [facility] Metoprolol Succinate 50 Mg Tab.sr.24h, 50 Mg Oral Meto prolol Succinate 50 Mg Tab.sr.24h, 50 Mg Oral 2014-05-07 00:00:00 No 50 D aily [facility] Ranitidine Hcl 150 Mg Tablet, 150 Mg Oral Ranitidine H cl 150 Mg Tablet, 150 Mg Oral 2014-05-07 00:00:00 No 150 1-2 Times Daily [facility] Sertraline Hcl 100 Mg Tablet, 100 Mg Oral Sertraline H cl 100 Mg Tablet, 100 Mg Oral 2014-05-07 00:00:00 No 100 Daily [facility] Simvastatin 80 Mg Tablet, 80 Mg Oral Simvastatin 80 Mg Tablet, 8 0 Mg Oral 2014-05-07 00:00:00 No 80 Daily [facility] Immunizations Ordered Immunization Name Filled Immunization Name Date Status Comments Source influenza, high dose seasonal influenza, high dose seasonal 2016 12:28:00 Completed [facility] influenza, injectable, quadrivalent influenza, injectable, q uadrivalent 2015-12-14 00:00:00 Completed [facility] ice influenza, seasonal, injectable influenza, seasonal, injecta ble 2014-12-12 00:00:00 Completed [facility] ice influenza, seasonal, injectable influenza, seasonal, injecta ble 2013-12-16 00:00:00 Completed [facility] ice Vital Signs Vital Name Observation Time Observation Value Comments Source BP Diastolic 2017-07-03 00:00:00 63 mm[Hg] [facility] Height 2017-07-03 00:00:00 66 [in_i] [facility] BMI (Body Mass Index) 2017-07-03 00:00:00 30.5 kg/m2 [facility] BP Systolic 2017-07-03 00:00:00 123 mm[Hg] [facility] Body Weight 2017-07-03 00:00:00 189 [lb_av] [facility] BP Diastolic 2017-03-28 00:00:00 72 mm[Hg] [facility] Height 2017-03-28 00:00:00 66 [in_i] [facility] BMI (Body Mass Index) 2017-03-28 00:00:00 32.9 kg/m2 [facility] BP Systolic 2017-03-28 00:00:00 126 mm[Hg] [facility] Body Weight 2017-03-28 00:00:00 204 [lb_av] [facility] BP Diastolic 2017-01-19 00:00:00 82 mm[Hg] [facility] Height 2017-01-19 00:00:00 66 [in_i] [facility] BMI (Body Mass Index) 2017-01-19 00:00:00 33 kg/m2 [facility] BP Systolic 2017-01-19 00:00:00 154 mm[Hg] [facility] Body Weight 2017-01-19 00:00:00 204.2 [lb_av] [facility] BP Diastolic 2016-12-06 00:00:00 64 mm[Hg] [facility] Height 2016-12-06 00:00:00 66 [in_i] [facility] BMI (Body Mass Index) 2016-12-06 00:00:00 32.2 kg/m2 [facility] BP Systolic 2016-12-06 00:00:00 110 mm[Hg] [facility] Body Weight 2016-12-06 00:00:00 199.2 [lb_av] [facility] BP Diastolic 2016-10-18 00:00:00 87 mm[Hg] [facility] Height 2016-10-18 00:00:00 66 [in_i] [facility] BMI (Body Mass Index) 2016-10-18 00:00:00 31.9 kg/m2 [facility] BP Systolic 2016-10-18 00:00:00 152 mm[Hg] [facility] Body Weight 2016-10-18 00:00:00 197.8 [lb_av] [facility] BP Diastolic 2016-09-21 00:00:00 67 mm[Hg] [facility] Height 2016-09-21 00:00:00 70 [in_i] [facility] BMI (Body Mass Index) 2016-09-21 00:00:00 28.7 kg/m2 [facility] BP Systolic 2016-09-21 00:00:00 121 mm[Hg] [facility] Body Weight 2016-09-21 00:00:00 200 [lb_av] [facility] BP Diastolic 2016-07-20 00:00:00 81 mm[Hg] [facility] Height 2016-07-20 00:00:00 70 [in_i] [facility] BMI (Body Mass Index) 2016-07-20 00:00:00 28.5 kg/m2 [facility] BP Systolic 2016-07-20 00:00:00 144 mm[Hg] [facility] Body Weight 2016-07-20 00:00:00 198.8 [lb_av] [facility] BP Diastolic 2016-07-05 00:00:00 72 mm[Hg] [facility] Height 2016-07-05 00:00:00 70 [in_i] [facility] BMI (Body Mass Index) 2016-07-05 00:00:00 29 kg/m2 [facility] BP Systolic 2016-07-05 00:00:00 144 mm[Hg] [facility] Body Weight 2016-07-05 00:00:00 202.4 [lb_av] [facility] BP Diastolic 2016-05-19 00:00:00 76 mm[Hg] [facility] Height 2016-05-19 00:00:00 70 [in_i] [facility] BMI (Body Mass Index) 2016-05-19 00:00:00 29.3 kg/m2 [facility] BP Systolic 2016-05-19 00:00:00 126 mm[Hg] [facility] Body Weight 2016-05-19 00:00:00 204.2 [lb_av] [facility] BP Diastolic 2016-05-09 00:00:00 73 mm[Hg] [facility] Height 2016-05-09 00:00:00 70 [in_i] [facility] BMI (Body Mass Index) 2016-05-09 00:00:00 29.4 kg/m2 [facility] BP Systolic 2016-05-09 00:00:00 153 mm[Hg] [facility] Body Weight 2016-05-09 00:00:00 204.8 [lb_av] [facility] BP Diastolic 2016-04-21 00:00:00 73 mm[Hg] [facility] Height 2016-04-21 00:00:00 70 [in_i] [facility] BMI (Body Mass Index) 2016-04-21 00:00:00 30.1 kg/m2 [facility] BP Systolic 2016-04-21 00:00:00 154 mm[Hg] [facility] Body Weight 2016-04-21 00:00:00 210 [lb_av] [facility] BP Diastolic 2016-03-11 00:00:00 66 mm[Hg] [facility] Height 2016-03-11 00:00:00 70 [in_i] [facility] BMI (Body Mass Index) 2016-03-11 00:00:00 30.1 kg/m2 [facility] BP Systolic 2016-03-11 00:00:00 135 mm[Hg] [facility] Body Weight 2016-03-11 00:00:00 210 [lb_av] [facility] BP Diastolic 2016-03-01 00:00:00 61 mm[Hg] [facility] Height 2016-03-01 00:00:00 70 [in_i] [facility] BMI (Body Mass Index) 2016-03-01 00:00:00 29.5 kg/m2 [facility] BP Systolic 2016-03-01 00:00:00 123 mm[Hg] [facility] Body Weight 2016-03-01 00:00:00 205.8 [lb_av] [facility] BP Diastolic 2016-02-19 00:00:00 65 mm[Hg] [facility] Height 2016-02-19 00:00:00 70 [in_i] [facility] BMI (Body Mass Index) 2016-02-19 00:00:00 29.9 kg/m2 [facility] BP Systolic 2016-02-19 00:00:00 136 mm[Hg] [facility] Body Weight 2016-02-19 00:00:00 208.6 [lb_av] [facility] BP Diastolic 2016-02-12 00:00:00 72 mm[Hg] [facility] Height 2016-02-12 00:00:00 70 [in_i] [facility] BMI (Body Mass Index) 2016-02-12 00:00:00 29.7 kg/m2 [facility] BP Systolic 2016-02-12 00:00:00 142 mm[Hg] [facility] Body Weight 2016-02-12 00:00:00 207 [lb_av] [facility] BP Diastolic 2015-08-18 00:00:00 70 mm[Hg] [facility] Height 2015-08-18 00:00:00 70 [in_i] [facility] BMI (Body Mass Index) 2015-08-18 00:00:00 31.85 kg/m2 [facility] BP Systolic 2015-08-18 00:00:00 116 mm[Hg] [facility] Body Weight 2015-08-18 00:00:00 222 [lb_av] [facility] BP Diastolic 2015-07-07 00:00:00 59 mm[Hg] [facility] BP Systolic 2015-07-07 00:00:00 111 mm[Hg] [facility] Height 2015-07-07 00:00:00 70 [in_i] [facility] BMI (Body Mass Index) 2015-07-07 00:00:00 32.80 kg/m2 [facility] Body Weight 2015-07-07 00:00:00 228.6 [lb_av] [facility] BP Diastolic 2015-06-18 00:00:00 68 mm[Hg] [facility] Height 2015-06-18 00:00:00 70 [in_i] [facility] BMI (Body Mass Index) 2015-06-18 00:00:00 33.17 kg/m2 [facility] BP Systolic 2015-06-18 00:00:00 139 mm[Hg] [facility] Body Weight 2015-06-18 00:00:00 231.2 [lb_av] [facility] BP Diastolic 2015-06-09 00:00:00 72 mm[Hg] [facility] Height 2015-06-09 00:00:00 70 [in_i] [facility] BMI (Body Mass Index) 2015-06-09 00:00:00 33.92 kg/m2 [facility] BP Systolic 2015-06-09 00:00:00 124 mm[Hg] [facility] Body Weight 2015-06-09 00:00:00 236.41 [lb_av] [facility] BP Diastolic 2015-05-20 00:00:00 71 mm[Hg] [facility] Height 2015-05-20 00:00:00 70 [in_i] [facility] BMI (Body Mass Index) 2015-05-20 00:00:00 33.92 kg/m2 [facility] BP Systolic 2015-05-20 00:00:00 127 mm[Hg] [facility] Body Weight 2015-05-20 00:00:00 236.4 [lb_av] [facility] BP Diastolic 2015-04-14 00:00:00 60 mm[Hg] [facility] Height 2015-04-14 00:00:00 70 [in_i] [facility] BMI (Body Mass Index) 2015-04-14 00:00:00 33.72 kg/m2 [facility] BP Systolic 2015-04-14 00:00:00 120 mm[Hg] [facility] Body Weight 2015-04-14 00:00:00 235 [lb_av] [facility] BP Diastolic 2015-03-25 00:00:00 73 mm[Hg] [facility] Height 2015-03-25 00:00:00 70 [in_i] [facility] BMI (Body Mass Index) 2015-03-25 00:00:00 34.23 kg/m2 [facility] BP Systolic 2015-03-25 00:00:00 137 mm[Hg] [facility] Body Weight 2015-03-25 00:00:00 238.6 [lb_av] [facility] BP Diastolic 2015-03-17 00:00:00 73 mm[Hg] [facility] Height 2015-03-17 00:00:00 70 [in_i] [facility] BMI (Body Mass Index) 2015-03-17 00:00:00 35.01 kg/m2 [facility] BP Systolic 2015-03-17 00:00:00 132 mm[Hg] [facility] Body Weight 2015-03-17 00:00:00 244 [lb_av] [facility] BP Diastolic 2015-03-09 00:00:00 58 mm[Hg] [facility] Height 2015-03-09 00:00:00 70 [in_i] [facility] BMI (Body Mass Index) 2015-03-09 00:00:00 35.04 kg/m2 [facility] BP Systolic 2015-03-09 00:00:00 124 mm[Hg] [facility] Body Weight 2015-03-09 00:00:00 244.2 [lb_av] [facility] BP Diastolic 2015-02-16 00:00:00 76 mm[Hg] [facility] Height 2015-02-16 00:00:00 70 [in_i] [facility] BMI (Body Mass Index) 2015-02-16 00:00:00 34.32 kg/m2 [facility] BP Systolic 2015-02-16 00:00:00 130 mm[Hg] [facility] Body Weight 2015-02-16 00:00:00 239.2 [lb_av] [facility] BP Diastolic 2015-01-06 00:00:00 71 mm[Hg] [facility] Height 2015-01-06 00:00:00 70 [in_i] [facility] BMI (Body Mass Index) 2015-01-06 00:00:00 35.21 kg/m2 [facility] BP Systolic 2015-01-06 00:00:00 132 mm[Hg] [facility] Body Weight 2015-01-06 00:00:00 245.4 [lb_av] [facility] BP Diastolic 2014-12-12 00:00:00 78 mm[Hg] [facility] Height 2014-12-12 00:00:00 70 [in_i] [facility] BMI (Body Mass Index) 2014-12-12 00:00:00 35.78 kg/m2 [facility] BP Systolic 2014-12-12 00:00:00 126 mm[Hg] [facility] Body Weight 2014-12-12 00:00:00 249.4 [lb_av] [facility] BP Diastolic 2014-11-11 00:00:00 80 mm[Hg] [facility] Height 2014-11-11 00:00:00 70 [in_i] [facility] BMI (Body Mass Index) 2014-11-11 00:00:00 35.67 kg/m2 [facility] BP Systolic 2014-11-11 00:00:00 140 mm[Hg] [facility] Body Weight 2014-11-11 00:00:00 248.6 [lb_av] [facility] BP Diastolic 2014-10-08 00:00:00 64 mm[Hg] [facility] Height 2014-10-08 00:00:00 70 [in_i] [facility] BMI (Body Mass Index) 2014-10-08 00:00:00 35.75 kg/m2 [facility] BP Systolic 2014-10-08 00:00:00 138 mm[Hg] [facility] Body Weight 2014-10-08 00:00:00 249.2 [lb_av] [facility] BP Diastolic 2014-09-02 00:00:00 60 mm[Hg] [facility] Height 2014-09-02 00:00:00 70 [in_i] [facility] BMI (Body Mass Index) 2014-09-02 00:00:00 36.67 kg/m2 [facility] BP Systolic 2014-09-02 00:00:00 130 mm[Hg] [facility] Body Weight 2014-09-02 00:00:00 255.6 [lb_av] [facility] BP Diastolic 2014-07-10 00:00:00 74 mm[Hg] [facility] Height 2014-07-10 00:00:00 70 [in_i] [facility] BMI (Body Mass Index) 2014-07-10 00:00:00 37.30 kg/m2 [facility] BP Systolic 2014-07-10 00:00:00 130 mm[Hg] [facility] Body Weight 2014-07-10 00:00:00 260 [lb_av] [facility] BP Diastolic 2014-06-11 00:00:00 80 mm[Hg] [facility] Height 2014-06-11 00:00:00 70 [in_i] [facility] BMI (Body Mass Index) 2014-06-11 00:00:00 36.61 kg/m2 [facility] BP Systolic 2014-06-11 00:00:00 140 mm[Hg] [facility] Body Weight 2014-06-11 00:00:00 255.2 [lb_av] [facility] BMI (Body Mass Index) 2014-05-12 00:00:00 38.16 kg/m2 [facility] BP Diastolic 2014-05-12 00:00:00 62 mm[Hg] [facility] Height 2014-05-12 00:00:00 70 [in_i] [facility] BP Systolic 2014-05-12 00:00:00 140 mm[Hg] [facility] Body Weight 2014-05-12 00:00:00 266 [lb_av] [facility] BP Diastolic 2014-04-29 00:00:00 70 mm[Hg] [facility] Height 2014-04-29 00:00:00 70 [in_i] [facility] BMI (Body Mass Index) 2014-04-29 00:00:00 37.24 kg/m2 [facility] BP Systolic 2014-04-29 00:00:00 140 mm[Hg] [facility] Body Weight 2014-04-29 00:00:00 259.6 [lb_av] [facility] BP Diastolic 2014-04-02 00:00:00 78 mm[Hg] [facility] Height 2014-04-02 00:00:00 70 [in_i] [facility] BMI (Body Mass Index) 2014-04-02 00:00:00 38.08 kg/m2 [facility] BP Systolic 2014-04-02 00:00:00 128 mm[Hg] [facility] Body Weight 2014-04-02 00:00:00 265.4 [lb_av] [facility] BP Diastolic 2014-02-18 00:00:00 80 mm[Hg] [facility] Height 2014-02-18 00:00:00 70 [in_i] [facility] BMI (Body Mass Index) 2014-02-18 00:00:00 38.16 kg/m2 [facility] BP Systolic 2014-02-18 00:00:00 130 mm[Hg] [facility] Body Weight 2014-02-18 00:00:00 266 [lb_av] [facility] BP Diastolic 2013-12-16 00:00:00 60 mm[Hg] [facility] Height 2013-12-16 00:00:00 70 [in_i] [facility] BMI (Body Mass Index) 2013-12-16 00:00:00 38.08 kg/m2 [facility] BP Systolic 2013-12-16 00:00:00 130 mm[Hg] [facility] Body Weight 2013-12-16 00:00:00 265.4 [lb_av] [facility] Height 2013-10-31 00:00:00 70 [in_i] [facility] Body Weight 2013-10-31 00:00:00 262.2 [lb_av] [facility] Height 2013-07-31 00:00:00 70 [in_i] [facility] Body Weight 2013-07-31 00:00:00 271 [lb_av] [facility] Height 2013-06-24 00:00:00 70 [in_i] [facility] Body Weight 2013-06-24 00:00:00 271 [lb_av] [facility] Height 2013-05-31 00:00:00 70 [in_i] [facility] Body Weight 2013-05-31 00:00:00 268.4 [lb_av] [facility] Height 2013-04-01 00:00:00 70 [in_i] [facility] Body Weight 2013-04-01 00:00:00 268.2 [lb_av] [facility] Height 2013-03-01 00:00:00 70 [in_i] [facility] Body Weight 2013-03-01 00:00:00 270.8 [lb_av] [facility] Procedures Procedure Date / Time Performed Performing Clinician [facility] Computed tomography of abdomen and pelvis with contrast 2018 00:00:00 EMMANUEL CASTILLO [facility] Computed tomography of abdomen and pelvis with contrast 2017 00:00:00 VIRY STACK [facility] X-ray of chest, two views 2018-01-16 00:00:00 VIRY STACK [facility] bone density 2016-05-19 00:00:00 [facility] MAMMO, screening, bilateral 2016-05-19 00:00:[address] [facility] Carpal Tunnel Surgery [facility] Cataract Surgery Complex [facility]Total[facility] Plan of Care Planned Activity Planned Date Details Comments Source Instructions [facility] Instructions [facility] Instructions [facility] Encounters Start Date/Time End Date/Time Encounter Type Admission Type [facility] Care Department Encounter ID Source 2018-09-02 23:17:00 2018-09-02 20:38:00 Admitted Inpatient (obs) 1 RAE QUIÑONEZ [facility] [id number] [facility] 2018-05-21 13:11:00 2018-05-25 15:55:00 Discharged Inpatient 1 JASMINA KOHLI [facility] [id number] [facility] 2018-01-16 16:11:00 2018-01-16 21:06:00 [facility] [id number] [facility] 2017-08-13 14:25:00 2017-08-15 20:05:00 Discharged Inpatient (obs) 1 KAMILLA [facility] [id number] [facility] 2017-07-03 00:00:00 2017-07-03 00:00:00 Chelsi Ruano PA: [address] [facility], [address], [place] [address], Ph. [facility] [id number] [facility] 2017-03-28 00:00:00 2017-03-28 00:00:00 Silvano Raya MD: [address] [facility], [address], [place] [address], Ph. [facility] [id number] [facility] 2017-01-19 00:00:00 2017-01-19 00:00:00 JACIEL ParikhP: [address] [facility], [address], [place] [address], Ph. [facility] [id number] [facility] 2016-12-06 00:00:00 2016-12-06 00:00:00 PABLITO Ramirez : [address] [facility], [address], [place] [address], Ph. [facility] [id number] [facility] 2016-10-18 00:00:00 2016-10-18 00:00:00 Silvano Raya MD: [address] [facility], [address] [place] [address], Ph. [facility] [id number] [facility] 2016-09-21 00:00:00 2016-09-21 00:00:00 JACIEL ParikhP: [address] [facility], [address] [place] [address], Ph. [facility] - [facility] [id number] [facility] 2016-08-08 00:00:00 2016-08-08 00:00:00 Silvaon Raya MD: [address] [facility], [address] [place] [address], Ph. [facility] [id number] [facility] 2016-07-20 00:00:00 2016-07-20 00:00:00 Silvano Raya MD: [address] [facility], [address] [place] [address], Ph. [facility] [place] [facility] [id number] [facility] 2016-07-05 00:00:00 2016-07-05 00:00:00 JACIEL ParikhP: [address] [facility], [address], [place] [address], Ph. [facility] [id number] [facility] 2016-07-01 00:00:00 2016-07-01 00:00:00 Filippo Garcia: [address], [address], [place] [address], Ph. [facility] - Care Management [id number] [facility] 2016-05-25 00:00:00 2016-05-25 00:00:00 Filippo Higuerat: [address], [address], [place] [address], Ph. [facility] - Care Management [id number] [facility] 2016-05-20 00:00:00 2016-05-20 00:00:00 Emma Elver: [address], [place] [address], Ph. [facility] - Care Management [id number] [facility] ice 2016-05-19 00:00:00 2016-05-19 00:00:00 Silvano Raya MD: [address] [facility], [address], [place] [address], Ph. [facility] [id number] [facility] Prac leandro 2016-05-09 00:00:00 2016-05-09 00:00:00 Silvano Raya MD: [address] [facility], [address], [place] [address], Ph. [facility] [id number] [facility] Prac leandro 2016-05-06 00:00:00 2016-05-06 00:00:00 Emma Raya: [address] [facility] [facility] [facility], [place] [address], Ph. [facility] - Care Management [id number] [facility] ice 2016-04-21 00:00:00 2016-04-21 00:00:00 PABLITO Ramirez : [address] [facility], [address], [place] [address], Ph. [facility] [id number] [facility] 2016-03-11 00:00:00 2016-03-11 00:00:00 PABLITO Ramirez : [address] [facility], [address], [place] [address], Ph. [facility] [id number] [facility] 2016-03-01 00:00:00 2016-03-01 00:00:00 Silvano Raya MD: [address] [facility], [facility] [address], [place] [address], Ph. [facility] [id number] [facility] leandro 2016-02-26 00:00:00 2016-02-26 00:00:00 Emma Raay: [address] [facility], [facility] [address], [place] [address], Ph. [facility] - [facility] [id number] [facility] 2016-02-19 00:00:00 2016-02-19 00:00:00 Peter stephen MD: [address] [facility], [facility] [address], [place] [address], Ph. [facility] [id number] [facility] 2016-02-12 00:00:00 2016-02-12 00:00:00 JACIEL ParikhP: [address] [facility], [facility] [address], [place] [address], Ph. [facility] [id number] [facility] Test Description Test Time Test Comments Results Result Comments Source Creatine Kinase MB 2018-09-03 15:20:00 Test Item Creatine Kinase MB (test code = 79584-1) 0.50 0-5.0 [facility] [id number] 15:20:00* Test Item Value Reference Range Interpretation Comments Troponin I (test code = WQP0471) < 0.001 0-0.300 [facility]ine Tcwffm3415-94-24 15:13:00* Test Item Value Reference Range Interpretation Comments Creatine Kinase (test code = 2157-6) 64 29-168 [facility] [id number] 06:39:00* Test Item Value Reference Range Interpretation Comments Sodium Level (test code = 2951-2) 139 136-145 [facility] HospitalPotassium [id number] 06:39:00* Test Item Value Reference Range Interpretation Comments Potassium Level (test code = 2823-3) 3.7 3.5-5.1 [facility] HospitalChloride [id number] 06:39:00* Test Item Value Reference Range Interpretation Comments Chloride Level (test code = 2075-0) 107 98-107 [facility] HospitalCarbon Dioxide Gltrj6723-76-00 06:39:00* Test Item Value Reference Range Interpretation Comments Carbon Dioxide Level (test code = 2028-9) 27 22-29 [facility] HospitalAnion [id number] 06:39:00* Test Item Value Reference Range Interpretation Comments Anion Gap (test code = 18011-3) 8.7 8-16 [facility] HospitalBlood Urea Lcqzfowr2693-92-54 06:39:00* Test Item Value Reference Range Interpretation Comments Blood Urea Nitrogen (test code = 3094-0) 12 7-26 [facility] HospitalCreatinine2019-06-10 06:39:00* Test Item Value Reference Range Interpretation Comments Creatinine (test code = 2160-0) 0.82 0.57-1.11 [facility] HospitalBUN/Creatinine Uspdg8442-91-35 06:39:00* Test Item Value Reference Range Interpretation Comments BUN/Creatinine Ratio (test code = 3097-3) 15 6-25 [facility] HospitalEstimat Glomerular Filtration Rate 2018-09-03 06:39:00* Test Item Value Reference Range Interpretation Comments Estimat Glomerular Filtration Rate (test code = 903029011) > 60 >60 Ranges were taken from the National Kidney Disease Education Program and the [facility] Kidney Foundation literature.Reference ranges:60 or greater: Cmcvcp51-44 ( for 3 consecutive months): Chronic kidney disease 15 or less: Kidney failureC[facility] Emergency HospitalGlucose Jyhsv4187-02-45 06:39:00* Test Item Value Reference Range Interpretation Comments Glucose Level (test code = XHC0203) 78 74-118 [facility] HospitalCalcium Eeucd6131-39-20 06:39:00* Test Item Value Reference Range Interpretation Comments Calcium Level (test code = 88063-2) 9.3 8.4-10.2 [facility] HospitalTotal Ixeljingd5222-10-13 06:39:00* Test Item Value Reference Range Interpretation Comments Total Bilirubin (test code = 1975-2) 0.6 0.2-1.2 [facility] HospitalAspartate Amino Transf (AST/SGOT) 2018-09-03 06:39:00* Test Item Value Reference Range Interpretation Comments Aspartate Amino Transf (AST/SGOT) (test code = Aspartate Amino Transf (AST/SGOT)) 23 5-34 [facility] HospitalAlanine Aminotransferase (ALT/SGPT) 2018-09-03 06:39:00* Test Item Value Reference Range Interpretation Comments Alanine Aminotransferase (ALT/SGPT) (test code = 1742-6) 20 0-55 [facility] HospitalTotal [id number] 06:39:00* Test Item Value Reference Range Interpretation Comments Total Protein (test code = 2885-2) 5.8 6.5-8.1 [facility] HospitalAlbumin2019-06-10 06:39:00* Test Item Value Reference Range Interpretation Comments Albumin (test code = 1751-7) 3.4 3.5-5.0 [facility] HospitalGlobulin2019-06-10 06:39:00* Test Item Value Reference Range Interpretation Comments Globulin (test code = 64445-2) 2.4 2.3-3.5 [facility] HospitalAlbumin/Globulin Owzvr5480-40-05 06:39:00 * Test Item Value Reference Range Interpretation Comments Albumin/Globulin Ratio (test code = 1759-0) 1.4 0.8-2.0 [facility] HospitalAlkaline Hatzascrngb0193-48-38 06:39:00* Test Item Value Reference Range Interpretation Comments Alkaline Phosphatase (test code = 6768-6) 52 40-150 [facility] HospitalTriglycerides Tarte9524-33-26 06:39:00* Test Item Value Reference Range Interpretation Comments Triglycerides Level (test code = 2571-8) 36 0-149 [facility] HospitalCholesterol Oxqbs1153-06-67 06:39:00* Test Item Value Reference Range Interpretation Comments Cholesterol Level (test code = 2093-3) 132 0-199 Less than 200 mg/dL Low Ytvi675 - 239 mg/dL Borderline Tdui301 m g/dl and greater High Risk [facility] HospitalLDL Mngdosiiybl4054-92-39 06:39:00* Test Item Value Reference Range Interpretation Comments LDL Cholesterol (test code = 2089-1) 70 60-130 [facility] HospitalHDL Qgiaqtorimr8756-77-54 06:39:00* Test Item Value Reference Range Interpretation Comments HDL Cholesterol (test code = 2085-9) 55 40-60 [facility] HospitalCholesterol/HDL Xgrra5682-97-13 06:39:00 * Test Item Value Reference Range Interpretation Comments Cholesterol/HDL Ratio (test code = 9830-1) 2.4 3.0-3.6 [facility] HospitalWhite Blood Vqlmm5289-09-81 06:10:00* Test Item Value Reference Range Interpretation Comments White Blood Count (test code = 6690-2) 3.57 4.8-10.8 [facility] Kyxpd0650-43-93 06:10:00* Test Item Value Reference Range Interpretation Comments Red Blood Count (test code = 789-8) 3.85 3.6-5.1 [facility]Hemoglobin2019-06-10 06:10:00* Test Item Value Reference Range Interpretation Comments Hemoglobin (test code = 81676-3) 9.7 12.0-16.0 [facility] HospitalHematocrit2019-06-10 06:10:00* Test Item Value Reference Range Interpretation Comments Hematocrit (test code = 4544-3) 30.6 34.2-44.1 [facility] HospitalMean Corpuscular Hhaofz7177-20-07 06:10:00* Test Item Value Reference Range Interpretation Comments Mean Corpuscular Volume (test code = 787-2) 79.5 81-99 [facility] Corpuscular Qoctpjqdyt6559-30-24 06:10:00* Test Item Value Reference Range Interpretation Comments Mean Corpuscular Hemoglobin (test code = 785-6) 25.2 28-32 [facility]Mean Corpuscular Hemoglobin Concent 2018-09-03 06:10:00* Test Item Value Reference Range Interpretation Comments Mean Corpuscular Hemoglobin Concent (test code = 786-4) 31.7 31-35 [facility] HospitalRed Cell Distribution Fcxjr5820-39-44 06:10:00* Test Item Value Reference Range Interpretation Comments Red Cell Distribution Width (test code = 43831-9) 15.2 11.7 -14.4 [facility] HospitalPlatelet Grmst3277-65-65 06:10:00* Test Item Value Reference Range Interpretation Comments Platelet Count (test code = 777-3) 128 140-360 [facility] HospitalNeutrophils (%) (Auto)2018-09-03 06:10:00 * Test Item Value Reference Range Interpretation Comments Neutrophils (%) (Auto) (test code = 28707-3) 40.8 38.7-80.0 [facility] HospitalLymphocytes (%) (Auto)2018-09-03 06:10:00 * Test Item Value Reference Range Interpretation Comments Lymphocytes (%) (Auto) (test code = 736-9) 40.9 18.0-39.1 [facility] HospitalMonocytes (%) (Auto)2018-09-03 06:10:00* Test Item Value Reference Range Interpretation Comments Monocytes (%) (Auto) (test code = 5905-5) 17.4 4.4-11.3 [facility] HospitalEosinophils (%) (Auto)2018-09-03 06:10:00 * Test Item Value Reference Range Interpretation Comments Eosinophils (%) (Auto) (test code = 713-8) 0.3 0.0-6.0 [facility] HospitalBasophils (%) (Auto)2018-09-03 06:10:00* Test Item Value Reference Range Interpretation Comments Basophils (%) (Auto) (test code = 706-2) 0.3 0.0-1.0 [facility] HospitalIM GRANULOCYTES %2018-09-03 06:10:00* Test Item Value Reference Range Interpretation Comments IM GRANULOCYTES % (test code = IM GRANULOCYTES %) 0.3 0.0- 1.0 [facility] HospitalNeutrophils # (Auto)2018-09-03 06:10:00* Test Item Value Reference Range Interpretation Comments Neutrophils # (Auto) (test code = 751-8) 1.5 2.1-6.9 [facility] HospitalLymphocytes # (Auto)2018-09-03 06:10:00* Test Item Value Reference Range Interpretation Comments Lymphocytes # (Auto) (test code = 93027-9) 1.5 1.0-3.2 [facility] HospitalMonocytes # (Auto)2018-09-03 06:10:00* Test Item Value Reference Range Interpretation Comments Monocytes # (Auto) (test code = 742-7) 0.6 0.2-0.8 [facility] HospitalEosinophils # (Auto)2018-09-03 06:10:00* Test Item Value Reference Range Interpretation Comments Eosinophils # (Auto) (test code = 711-2) 0.0 0.0-0.4 [facility] HospitalBasophils # (Auto)2018-09-03 06:10:00* Test Item Value Reference Range Interpretation Comments Basophils # (Auto) (test code = 704-7) 0.0 0.0-0.1 [facility] HospitalAbsolute Immature Granulocyte (auto 2018-09-03 06:10:00* Test Item Value Reference Range Interpretation Comments Absolute Immature Granulocyte (auto (laurie t code = Absolute Immature Granulocyte (auto) 0.01 0-0.1 [facility] HospitalB-Type Natriuretic Xtstmvl6161-50-92 23:06:00* Test Item Value Reference Range Interpretation Comments B-Type Natriuretic Peptide (test code = 43152-9) 40.8 0-100 [facility] HospitalCHEST SINGLE (PORTABLE)2018-09-02 23:03:00 [facility] [address] [address] Patient Name: LINO HUNT MR #: [id number] : 1945 Age/Sex: 72/F Req #: [id number] Adm Physician: Ordered by: RAE QUIÑONEZ MD Report #: [id number] Location: ER Room/Bed: Procedure: [id number] DX/CHES T SINGLE (PORTABLE) Exam Date: 09/02/18 Exam Time: 2 125 REPORT STATUS: Signed EXAMIN ATION: CHEST SINGLE (PORTABLE) INDICATION: CHEST PAIN 20185 Y COMPARISON: 01/16/2018 FINDINGS: AP view TUBES and LINES: None. LUNGS: Lungs are well inflated. Lungs are talat ar. There is no evidence of pneumonia or pulmonary edema. PLEURA: No p leural effusion or pneumothorax. HEART AND MEDIASTINUM: The cardiomediasti nal silhouette is unremarkable. Mild thickening of the right paratracheal stri pe. BONES AND SOFT TISSUES: No acute osseous lesion. Soft tissues are u nremarkable. UPPER ABDOMEN: No free air under the diaphragm. IMPRE SSION: No acute thoracic abnormality. Signed by: Delonte Welch on 09/02/2018 11:04 PM Dictated By: SILVIO ANDRADE MD Electronically Sign ed By: SILVIO ANDRADE MD on 09/02/18 2304 Transcribed By: EMMA on 09/02/18 23 04 COPY TO: RAE QUIÑONEZ MD Prothrombin Terv1749-32-13 22:42:00 * Test Item Value Reference Range Interpretation Comments Prothrombin Time (test code = 5902-2) 14.4 11.9-14.5 [facility] HospitalProthromb Time International Ratio 2018-09-02 22:42:00* Test Item Value Reference Range Interpretation Comments Prothromb Time International Ratio (test code = 6301-6) 1.07 Oral Anticoagulant Therapy INR Values:1. Low Intensity Therapy 1.5 - 2.02 . Moderate Intensity Therapy 2.0 - 3.03. High Intensity Therapy(1) 2.5 - 3. 54. High Intensity Therapy(2) 3.0 - 4.05. Panic Value INR > 5.0 [facility] HospitalActivated Partial Thromboplast Time 2018-09-02 22:42:00* Test Item Value Reference Range Interpretation Comments Activated Partial Thromboplast Time (test code = 59856-1) 32.6 23.8-35.5 [facility] HospitalUrine BDU3214-26-04 22:24:00* Test Item Value Reference Range Interpretation Comments Urine WBC (test code = 5821-4) 6-10 0-5 [facility] HospitalUrine [id number] 22:24:00* Test Item Value Reference Range Interpretation Comments Urine RBC (test code = 85276-2) 0-5 0-5 [facility] HospitalUrine Kfnpqxst9867-64-99 22:24:00* Test Item Value Reference Range Interpretation Comments Urine Bacteria (test code = 65205-1) FEW NONE [facility] HospitalUrine Epithelial Nciie1253-57-80 22:24:00 * Test Item Value Reference Range Interpretation Comments Urine Epithelial Cells (test code = 61400-0) RARE NONE [facility] HospitalUrine Hyaline Ljuku8401-38-71 22:24:00* Test Item Value Reference Range Interpretation Comments Urine Hyaline Casts (test code = 28846-4) 2-5 0-1 [facility] HospitalUrine Webvf7755-25-92 22:24:00* Test Item Value Reference Range Interpretation Comments Urine Mucus (test code = 8247-9) MODERATE RARE [facility] HospitalUrine Pmclr1578-73-81 22:18:00* Test Item Value Reference Range Interpretation Comments Urine Color (test code = 5778-6) YELLOW YELLOW [facility] HospitalUrine Xffilrr9851-19-41 22:18:00* Test Item Value Reference Range Interpretation Comments Urine Clarity (test code = 97619-7) SL CLOUDY CLEAR [facility] Specific Uftithc5999-75-04 22:18:00 * Test Item Value Reference Range Interpretation Comments Urine Specific [place] (test code = 5811-5) 1.025 1.010-1.02 5 [facility] HospitalUrine pV3313-12-55 22:18:00* Test Item Value Reference Range Interpretation Comments Urine pH (test code = 40300-1) 5.5 5-7 [facility] Leukocyte Sazztvbt0172-64-65 22:18:00* Test Item Value Reference Range Interpretation Comments Urine Leukocyte Esterase (test code = 86086-4) TRACE NEGATIV E [facility] HospitalUrine Pijeaif5660-14-87 22:18:00* Test Item Value Reference Range Interpretation Comments Urine Nitrite (test code = 63624-1) NEGATIVE NEGATIVE [facility] Rrlyshg9346-94-75 22:18:00* Test Item Value Reference Range Interpretation Comments Urine Protein (test code = 48157-6) 1+ NEGATIVE [facility] HospitalUrine Glucose (UA)2018-09-02 22:18:00* Test Item Value Reference Range Interpretation Comments Urine Glucose (UA) (test code = 08003-2) NEGATIVE NEGATIVE [facility] Whdbstl2478-42-99 22:18:00* Test Item Value Reference Range Interpretation Comments Urine Ketones (test code = 92077-6) TRACE NEGATIVE [facility] Kwnxtdkcjpgv3443-14-43 22:18:00* Test Item Value Reference Range Interpretation Comments Urine Urobilinogen (test code = 34731-9) 0.2 0.2-1 [facility] Mfiuczire4018-69-26 22:18:00* Test Item Value Reference Range Interpretation Comments Urine Bilirubin (test code = 1977-8) NEGATIVE NEGATIVE [facility] Tfexf1454-44-67 22:18:00* Test Item Value Reference Range Interpretation Comments Urine Blood (test code = 11968-0) TRACE NEGATIVE [facility] (KUB)2018-05-24 07:45:00 [facility] [address] [address] Patient Name: LINO HUNT MR #: [id number] : 1945 Age/Sex: 72/F Req #: [id number] Adm Physician: JASMINA KOHLI MD Ordered by: MARCI POWER MD Report #: [id number] Location: MED/SURG[address] [place] [address]/Bed: [facility] Procedure: [id number] DX/ABDOME N-1VIEW (KU) Exam Date: 05/24/18 Exam Time: 0610 REPORT STATUS: Signed Exam: KUB-2 views Clinical History: Abdominal pain. Comparison: KUB 05/21/[address] Abdomen/Pelvis 05/19/2018. Findings: Somewhat limited study by portable technique, motion, and soft tissue attenuation. Nonobstructive bowel ga s pattern. Calcified phleboliths in the right lower quadrant and bladder. No a cute osseous abnormality. Degenerative changes of visualized spine. Impre ssion: No acute radiographic abnormality. Signed by: Dr. Chiquita Lopez MD o n 05/24/2018 7:51 AM Dictated By: CHIQUITA LOPEZ MD 0751 Transcribed By: EMMA on 05/24/18 0751 COPY TO: MARCI POWER MD ABDOMEN-1VIEW (KUB)2018-05-21 11:01:[address] [address] Patient Name: LINO HUNT MR #: [id number] : 1945 Age/Sex: 72/F Req #: [id number] Adm Physician: JASMINA KOHLI MD Ordered by: JASMINA KOHLI MD Report #: [id number] Location: [facility] Room/Bed: [address] [address] Procedure: [id number] DX/ABDOMEN -1VIEW (KUB) Exam Date: Exam Time: REPORT STATUS: Signed PROCEDURE: X-RAY ABDOME N - KUB COMPARISON: None. INDICATIONS: SMALL BOWEL OBSTRUCTION FINDINGS: There are no dilated loops of bowel to suggest obstructi on. There are no masses or abnormal calcifications. Clips in the right upper quadrant of the abdomen. There is no evidence of free air. Multiple pelvic calcifications are compatible with phleboliths and ovarian vein calcificati on. Degenerative changes of the spine. CONCLUSION: No acute abdom inal abnormality. Yo Martin D.O. Dictated by: Yo Martin D.O. on 05/21/2018 at 11:01 Electronically approved by: Yo mota D.O. on 05/21/2018 at 11:01 Dictated By: YO MARTIN DO 110 Transcribed By: MARYAM on 05/21/18 1101 COPY TO: JASMINA KOHLI MD Lactic Acid Level 2018-05-20 06:28:00* Test Item Value Reference Range Interpretation Comments Lactic Acid Level (test code = Lactic Acid Level) 6.7 4.5- 19.8 [facility]PELVIS P2859-12-28 22:34:00 [facility] [address] [address] Patient Name: LINO HUNT MR #: [id number] : 1945 Age/Sex: 72/F Req #: [id number] Adm Physician: Ordered by: EMMANUEL CASTILLO MD Report #: [id number] Location: ER Ro om/Bed: Procedure: [id number] CT/CT AB DOMEN/PELVIS W Exam Date: 05/19/18 Exam Time: 2199 REPORT STATUS: Signed EXAM: CT Ab domen and Pelvis WITH contrast INDICATION: look for appy, diverticu litis,sbo, panreatitis, hernia, rup [id number] Y COMPARISON: CT d ated 01/16/2018 TECHNIQUE: Abdomen and pelvis were scanned utilizing a multide tector helical scanner from the lung base to the pubic symphysis after adminis tration of IV contrast. Coronal and sagittal reformations were obtained. Dose modulation, iterative reconstruction, and/or weight based adjustment of the mA /kV was utilized to reduce the radiation dose to as low as reasonably achievab le. Routine protocol was performed. Scan was performed when during portal veno us phase. IV CONTRAST: 100 mL of Isovue-370 ORAL CONTRAST: W ater COMPLICATIONS: None RADIATION DOSE: Total DLP: 508.21 mGy*cm Estimated effective dose: (DLP x 0.015 x size factor) mSv CTDIvol has been reviewed. It is below the limits set by the Radiation Protocol Committee (RPC). FINDINGS: LINES and TUBES: None. LOWER THORAX: Unremarkable HEPATOBILIARY: No focal hepatic lesions. No bili martin ductal dilation. GALLBLADDER: Surgically absent. SPLEEN: No splen omegaly. PANCREAS: No focal masses or ductal dilatation. ADRENALS: Stable right adrenal nodule. No left adrenal nodule. KIDNEYS/URETERS: K idneys enhance symmetrically. No hydronephrosis. Unchanged renal cysts. No s tones. GI TRACT: Mildly dilated proximal jejunal loops, demonstrating wall thickening (series 301, image 27), with nondistended small bowel loops seen lo wer abdomen. Gastric distention. Appendix is normal. PELVIC ORGANS/BLAD NATALIIA: Bladder is collapsed. Numerous pelvic phleboliths. LYMPH NODES: No lym phadenopathy. VESSELS: Unremarkable. PERITONEUM / RETROPERITONEUM: No free air. Trace ascites. BONES: Multilevel degenerative changes of spine. G rade 1 anterolisthesis of L2 in relation to L1. Grade 1 retrolisthesis of L5 i n relation to L4. SOFT TISSUES: Unremarkable. Bilateral buttock injection granulomas. IMPRESSION: 1. Mildly dilated proximal jejunal loops , demonstrating wall thickening, along with nondilated lower abdomen loops, ra ising the possibility of low-grade partial small bowel obstruction. Additional ly the dilated jejunal loops show wall thickening, which could represent enter itis in the appropriate clinical setting. 2. No evidence of appendicitis or diverticulitis. Signed by: Dr. Silvio Andrade MD on 05/19/2018 10:51 PM Dictated By: SILVIO ANDRADE MD 50 Transcribed By: EMMA on 05/19/182250 COPY TO: EMMANUEL CASTILLO MD Amylase Tclwd6422-18-79 21:38:00* Test Item Value Reference Range Interpretation Comments Amylase Level (test code = 1798-8) 56 25-125 [facility] HospitalLipase2019-02-23 21:38:00* Test Item Value Reference Range Interpretation Comments Lipase (test code = 3040-3) 15 8-78 [facility] HospitalBlood Umwnwga2064-58-00 17:35:00* Test Item Value Reference Range Interpretation Comments Blood Culture (test code = 56688203) NO GROWTH AFTER 5 DAYS, FINAL REPORT [facility]CT [facility]/PELVIS C0228-34-13:31:00 [facility] [address] [place] [address] Patient Name: LINO HUNT MR #: [id number] : 1945 Age/Sex: 72/F Req #: [id number] Adm Physician: Ordered by: VIRY STACK ICE SCULPTOR Report #: [id number] Location: ER Room/Bed: Procedure: [id number] CT/CT ABDOMEN/PELVIS W Exam Date: 01/16/18 Exam Time: 190 0 REPORT STATUS: Signed EXAM: CT Abdomen and Pelvis WITH contrast INDICATION: Right flank pain. COMPARISON : 08/14/17. TECHNIQUE: Abdomen and pelvis were scanned utilizing a multidetecto r helical scanner from the lung base to the pubic symphysis after administrati on of IV contrast. Coronal and sagittal reformations were obtained. Routine pr otocol was performed. Scan was performed when during portal venous phase. IV CONTRAST: 100 mL Isovue-370. Patient received oral hydration ORAL CONTRAST: Water RADIATION DOSE: Total DLP: 450.75 mGy *cm Estimated effective dose: (DLP x 0.015 x size factor) mSv COMPLICATIONS: None FINDINGS: LINES and TUBES: None. L OWER THORAX: Interval resolution of bilateral small pleural effusions. HEP ATOBILIARY: No focal hepatic lesions. No biliary ductal dilation. GAL LBLADDER: Surgically absent. SPLEEN: No splenomegaly. PANCREAS: No fo radha masses or ductal dilatation. ADRENALS: There is a 3.0 cm low-attenuat ion lesion in the right adrenal gland, unchanged. No left adrenal nodules KIDNEYS/URETERS: Kidneys enhance symmetrically. No hydronephrosis. Show low-attenuation lesions in the interpolar region of the left in the largest po steriorly measuring 1.4 cm on image 25 series 2, unchanged. No stones. GI T RACT: No abnormal distention, wall thickening, or evidence of bowel obstructio n. Appendix is normal. PELVIC ORGANS/BLADDER: Status post hysterectomy. Mu ltiple phleboliths scattered throughout the pelvis. Mild wall thickening of th e urinary bladder likely related to underdistention. LYMPH NODES: No lymp hadenopathy. VESSELS: Unremarkable. PERITONEUM / RETROPERITONEUM: No f ree air or fluid. BONES: Mild grade 1 anterolisthesis of L4 in relation to L5. Multilevel degenerative changes. Slight retrolisthesis of L1 relation to L 2. SOFT TISSUES: Unremarkable. IMPRESSION: 1. No acute abdomina l pelvic abnormality. 2. Stable indeterminate 3.0 cm right adrenal nodule. Signed by: Dr. Marianne Beaver M.D. on 01/16/2018 7:42 PM Dictat ed By: ZEHRA BEAVER MD, MD 41 COPY TO: CAROLA STACK NP CHEST 2 [id number] 19:16:00 [address] [address] Patient Name: LINO HUNT MR #: [id number] : 1945 Age/Sex: 72/F Req #: [id number] Adm Physician: Ordered by: VIRY STACK ICE SCULPTOR Report #: [id number] Location: ER Room/Bed: Procedure: [id number] DX/CAROLA EST 2 VIEWS Exam Date: 01/16/18 Exam Time: 1900 REPORT STATUS: Signed EXAMINATION: CHEST 2 VIEWS INDICATION: Severe pain on the right. COMPARISON: . FINDINGS: TUBES and LINES: None. LUNGS: Lungs are wel l inflated. Lungs are clear. There is no evidence of pneumonia or pulmonary edema. PLEURA: No pleural effusion or pneumothorax. HEART AND MEDIAS TINUM: The cardiac silhouette is mildly enlarged. BONES AND SOFT TISSUES: No acute osseous lesion. Spondylosis of the thoracic spine. UPPER ABDOM EN: No free air under the diaphragm. IMPRESSION: Mild cardiomegaly wi thout acute decompensation. Signed by: Dr. Marianne Beaver M.D. on 01/16/2018 7:31 PM Dictated By: ZEHRA BEAVER MD, MD Electronically Sig lola By: ZEHRA BEAVER MD, MD on 01/16/181930 Transcribed By: EMMA on 1930 COPY TO: VIRY STACK ICE SCULPTOR Influenza Virus Types A,B Bxqpaof8059-21-06 18:01:00* Test Item Value Reference Range Interpretation Comments Influenza Virus Types A,B Antigen (test code = 80713-8) NEGATIVE NEGATIVE [facility] panel - Serum or Plasma 2017-01-20 01:06:00* Test Item Value Reference Range Interpretation Comments cholesterol, total (test code = cholesterol, total) 177 mg/dL <2 00 HDL cholesterol (test code = HDL cholesterol) 79 mg/dL >50 triglycerides (test code = triglycerides) 64 mg/dL <150 LDL-cholesterol (test code = LDL-cholesterol) 84 mg/dL (calc) chol/HDLC ratio (test code = chol/HDLC ratio) 2.2 (calc) <5.0 non HDL cholesterol (test code = non HDL cholesterol) 98 mg/dL (radha c) <130 [facility] PracticeCom[facility] 2000 panel - Serum or Plasma 2017-01-20 01:06:00* Test Item Value Reference Range Interpretation Comments glucose (test code = glucose) 101 mg/dL 65-99 H urea nitrogen (BUN) (test code = urea nitrogen (BUN)) 15 mg/dL 7-25 creatinine (test code = creatinine) 1.06 mg/dL 0.60-0.93 H eGFR non-afr. kenyan (test code = eGFR non-afr. kenyan) 52 mL/min/1.73m2 > or = 60 L eGFR (test code = eGFR ) 60 mL/min/1.73m2 > or = 60 BUN/creatinine ratio (test code = BUN/creatinine ratio) 14 (calc) 6-22 sodium (test code = sodium) 145 mmol/L 135-146 potassium (test code = potassium) 3.6 mmol/L 3.5-5.3 chloride (test code = chloride) 107 mmol/L 98-110 carbon dioxide (test code = carbon dioxide) 30 mmol/L 20-31 calcium (test code = calcium) 9.5 mg/dL 8.6-10.4 protein, total (test code = protein, total) 6.7 g/dL 6.1-8.1 albumin (test code = albumin) 4.0 g/dL 3.6-5.1 globulin (test code = globulin) 2.7 g/dL (calc) 1.9-3.7 albumin/globulin ratio (test code = albumin/globulin ratio) 1.5 (calc) 1.0-2.5 bilirubin, total (test code = bilirubin, total) 0.7 mg/dL 0.2-1. 2 alkaline phosphatase (test code = alkaline phosphatase) 85 U/L 33-130 AST (test code = AST) 18 U/L 10-35 ALT (test code = ALT) 16 U/L 6-29 [facility] W Auto Differential panel - Tclvy1642-69-91 01:06:00 * Test Item Value Reference Range Interpretation Comments white blood cell count (test code = white blood cell count) 3.1 thousand/uL 3.8-10.8 L red blood cell count (test code = red blood cell count) 4.22 million/uL 3.80-5.10 hemoglobin (test code = hemoglobin) 10.2 g/dL 11.7-15.5 L hematocrit (test code = hematocrit) 34.3 % 35.0-45.0 L MCV (test code = MCV) 81.3 fL 80.0-100.0 MCH (test code = MCH) 24.2 pg 27.0-33.0 L MCHC (test code = MCHC) 29.7 g/dL 32.0-36.0 L RDW (test code = RDW) 13.4 % 11.0-15.0 platelet count (test code = platelet count) 156 thousand/uL 140-400 MPV (test code = MPV) 11.8 fL 7.5-12.5 absolute neutrophils (test code = absolute neutrophils) 1869 rodney ls/uL 1935-0548 absolute lymphocytes (test code = absolute lymphocytes) 942 cells/u L 850-3900 absolute monocytes (test code = absolute monocytes) 260 cells/uL 20 0-950 absolute eosinophils (test code = absolute eosinophils) 9 cells/uL 15-500 L absolute basophils (test code = absolute basophils) 19 cells/uL 0- 200 neutrophils (test code = neutrophils) 60.3 % lymphocytes (test code = lymphocytes) 30.4 % monocytes (test code = monocytes) 8.4 % eosinophils (test code = eosinophils) 0.3 % basophils (test code = basophils) 0.6 % [facility] identified in Urine by Izplevy3706-62-72 17:38:00Culture, Urine, RoutineVillage Schneck Medical CenterLipid 1995 panel - Serum or Oxwmtf8770-59-25 00:00:00* Test Item Value Reference Range Interpretation Comments Cholesterol [Mass/volume] in Serum or Plasma (test code = 20 93-3) 164 mg/dL 125-200 Cholesterol in HDL [Mass/volume] in Serum or Plasma (t est code = 2085-9) 75 mg/dL > or = 46 Triglyceride [Mass/volume] in Serum or Plasma (test code = 2 571-8) 77 mg/dL <150 Cholesterol in LDL [Mass/volume] in Seru m or Plasma by calculation (test code = 14360-8) 74 mg/dL (calc) <130 Cholesterol.total/Cholesterol.in HDL [Ma ss ratio] in Serum or Plasma (test code = 9830-1) 2.2 (calc) < or = 5.0 Cholesterol non HDL [Mass/volume] in Serum or Plasma ( test code = 99757-3) 89 mg/dL (calc) [facility] 2000 panel - Serum or Plasma 2016-05-20 00:00:00* Test Item Value Reference Range Interpretation Comments Glucose [Mass/volume] in Serum or Plasma (test code = 2345-7) 105 m g/dL 65-99 H Urea nitrogen [Mass/volume] in Serum or Plasma (test code = 3094-0) 12 mg/dL 7-25 Creatinine [Mass/volume] in Serum or Plasma (test code = 216 0-0) 0.97 mg/dL 0.60-0.93 H Glomerular filtration rate/1.73 sq M.pre dicted by Creatinine-based formula (MDRD) (test code = 42062-5) 58 mL/min/1.73m2 > or = 60 L Glomerular filtration rate/1.73 sq M pre dicted among blacks by Creatinine-based formula (MDRD) (test code = 77333-3) 68 mL/min/1.73m2 > or = 60 Urea nitrogen/Creatinine [Mass Ratio] in Serum or Plas ma (test code = 3097-3) 12 (calc) 6-22 Sodium [Moles/volume] in Serum or Plasma (test code = 2951-2 ) 141 mmol/L 135-146 Potassium [Moles/volume] in Serum or Plasma (test code = 282 3-3) 4.6 mmol/L 3.5-5.3 Chloride [Moles/volume] in Serum or Plasma (test code = 5 -0) 102 mmol/L 98-110 Carbon dioxide, total [Moles/volume] in Serum or Plasm a (test code = 2027-9) 30 mmol/L 20-31 Calcium [Mass/volume] in Serum or Plasma (test code = 99330- 6) 9.4 mg/dL 8.6-10.4 Protein [Mass/volume] in Serum or Plasma (test code = 2885-2) 7. 1 g/dL 6.1-8.1 Albumin [Mass/volume] in Serum or Plasma (test code = 1751-7) 4. 1 g/dL 3.6-5.1 Globulin [Mass/volume] in Serum by calculation (test c ode = 84762-0) 3.0 g/dL (calc) 1.9-3.7 Albumin/Globulin [Mass Ratio] in Serum or Plasma (test code = 1759-0) 1.4 (calc) 1.0-2.5 Bilirubin.total [Mass/volume] in Serum or Plasma (test code = 1974-2) 0.6 mg/dL 0.2-1.2 Alkaline phosphatase [Enzymatic activity /volume] in Serum or Plasma (test code = 6768-6) 85 U/L 33-130 Aspartate aminotransferase [Enzymatic ac tivity/volume] in Serum or Plasma (test code = 1920-8) 14 U/L 10-35 Alanine aminotransferase [Enzymatic acti vity/volume] in Serum or Plasma (test code = 1742-6) 8 U/L 6-29 [facility] W Auto Differential panel - [id number] 00:00:00 * Test Item Value Reference Range Interpretation Comments Leukocytes [#/volume] in Blood by Automated count (laurie t code = 6690-2) 3.2 thousand/uL 3.8-10.8 L Erythrocytes [#/volume] in Blood by Automated count (t est code = 789-8) 4.34 million/uL 3.80-5.10 Hemoglobin [Mass/volume] in Blood (test code = 718-7) 10.4 g/dL 11.7-15.5 L Hematocrit [Volume Fraction] of Blood by Automated cou nt (test code = 4544-3) 33.5 % 35.0-45.0 L Erythrocyte mean corpuscular volume [Ent itic volume] by Automated count (test code = 787-2) 77.1 fL 80.0-100.0 L Erythrocyte mean corpuscular hemoglobin [Entitic mass] by Automated count (test code = 785-6) 23.9 pg 27.0-33.0 L Erythrocyte mean corpuscular hemoglobin concentration [Mass/volume] by Automated count (test code = 786-4) 31.0 g/dL 32.0-36.0 L Erythrocyte distribution width [Ratio] by Automated co unt (test code = 788-0) 17.5 % 11.0-15.0 H Platelets [#/volume] in Blood by Automated count (test code = 777-3) 145 thousand/uL 140-400 Platelet mean volume [Entitic volume] in Blood by Shy (test code = 776-5) 10.1 fL 7.5-12.5 Neutrophils [#/volume] in Blood by Automated count (te st code = 751-8) 1917 cells/uL 7409-8288 Lymphocytes [#/volume] in Blood by Automated count (te st code = 731-0) 938 cells/uL 850-3900 Monocytes [#/volume] in Blood by Automated count (test code = 742-7) 330 cells/uL 200-950 Eosinophils [#/volume] in Blood by Automated count (te st code = 711-2) 16 cells/uL 15-500 Basophils [#/volume] in Blood by Automated count (test code = 704-7) 0 cells/uL 0-200 Neutrophils/100 leukocytes in Blood by Automated count (test code = 770-8) 59.9 % Lymphocytes/100 leukocytes in Blood by Automated count (test code = 736-9) 29.3 % Monocytes/100 leukocytes in Blood by Automated count ( test code = 5905-5) 10.3 % Eosinophils/100 leukocytes in Blood by Automated count (test code = 713-8) 0.5 % Basophils/100 leukocytes in Blood by Automated count (test c ode = 706-2) 0.0 % [facility]/volume] in Serum or [id number] 00:00:00* Test Item Value Reference Range Interpretation Comments Thyroxine (T4) [Mass/volume] in Serum or Plasma (test code = 3026-2) 8.2 mcg/dL 4.5-12.[address] [facility]Units/volume] in Serum or [id number] 00:00:00* Test Item Value Reference Range Interpretation Comments Thyrotropin [Units/volume] in Serum or Plasma (test code = 3 016-3) 1.12 mIU/L 0.40-4.[address] [facility] [place] [address] Patient Name: LINO HUNT MR #: [id number] : 1945 Age/Sex: 71/F Req #: [id number] Adm Physician: JASMINA KOHLI MD Ordered by: JASMINA KOHLI MD Report #: [id number] Location: [facility] Room/Bed: [place] [address] Procedure: [id number] CT/CT ABDOME N/PELVIS W Exam Date: 08/14/17 Exam Time: 1511 REPORT STATUS: Signed EXAM: CT Abdomen and Pelvis WITH contrast INDICATI ON: COMPARISON: CT dated 02/22/2016 TECHNIQUE: Abdomen and pe lvis were scanned utilizing a multidetector helical scanner from the lung base to the pubic symphysis after administration of IV contrast. Coronal and sagit steve reformations were obtained. Routine protocol was performed. Scan was perfo rmed when during portal venous phase. IV CONTRAST: 100 mL of Isovue-3 70 ORAL CONTRAST: Water COMPLICATIONS: None RADIATI ON DOSE: Total DLP: 665.58 mGy*cm Estimated effective dose: (DLP x 0.015 x size factor) mSv CTDIvol has been reviewed. It is below the limi ts set by the Radiation Protocol Committee (RPC). FINDINGS: LINES an d TUBES: None. LOWER THORAX: Small bilateral pleural effusions. HEPAT OBILIARY: No focal hepatic lesions. No biliary ductal dilation. GALLB LADDER: Cholecystectomy. SPLEEN: No splenomegaly. PANCREAS: No focal masses or ductal dilatation. ADRENALS: Unchanged 2.8 x 2.4 cm right adren al nodule. No left adrenal nodule. KIDNEYS/URETERS: Kidneys enhance s ymmetrically. No hydronephrosis. No renal mass. Unchanged bilateral renal cys ts, measuring up to 1.5 cm. No stones. GI TRACT: No abnormal distention, w all thickening, or evidence of bowel obstruction. Appendix is not visual ized with certainty. PELVIC ORGANS/BLADDER: Hysterectomy. Numerous pelvic p hleboliths. LYMPH NODES: No lymphadenopathy. Calcified right lower quadrant mesenteric lymph nodes. VESSELS: Unremarkable. PERITONEUM / RETROPE RITONEUM: No free air. Trace abdominal ascites which is slightly decreased fro m prior exam. BONES: Advanced degenerative changes of spine. Unchanged grad e 1 anterolisthesis of L2 in relation to L1 and retrolisthesis of L5 in relati on to L4. SOFT TISSUES: Unremarkable. Posterior left back subcutaneous calcifications, likely related to injections. IMPRESSION: 1. Sm all bilateral pleural effusions. 2. No definite evidence of acute inflammator y process in the abdomen/pelvis. 3. Trace abdominal ascites, slightly decreas ed from prior exam. 4. Stable right adrenal nodule. Signed by: Dr. Silvio Andrade MD on 08/14/2017 4:56 PM Dictated By: SILVIO ANDRADE MD Electron ically Signed By: SILVIO ANDRADE MD on 08/14/171655 Transcribed By: EMMA on 08/14/171655 COPY TO: JASMINA KOHLI MD ABDOMEN ACUTE SERIES W/PA CXR [place] [address] Patient Name: LINO HUNT MR #: [id number] : 1945 Age/Sex: 71/F Req #: [id number] Adm Physician: Ordered by: AYAN VIDAL MD Report #: [id number] Location: ER Room/Bed: Procedure: [id number] DX/ABDOMEN ACUTE SERIES W/PA CXR Exam Date: 08/13/17 Exam Time: [address] ATUS: Signed Acute Abdominal Series CPT CODE: 28485 INDICATION: Abd ominal pain, nausea, diarrhea. COMPARISON: Obstructive series 04/27/2016. FINDINGS: Single view of the chest shows mild stable cardiomegaly. No ma ss or infiltrate. Supine and erect views of the abdomen show unremarkable b owel gas pattern. The stomach is distended with fluid but not dilated. No dila raquel small bowel loops or air-fluid levels. No pneumatosis. Cholecystectomy cli ps are present. No evidence of free air. Calcifications in the medial rig ht lower quadrant and pelvis are stable and likely vascular. Degenerative changes of the spine are stable. No focal osseous lesions. IMPRESSION: 1. Fluid distention of the stomach and unremarkable small bowel and large niraj l gas pattern. This could be the result of gastroenteritis. Please correlate f or history of gastroparesis. 2. Mild and stable cardiomegaly. Clear lungs. 3. Cholecystectomy. Signed by: Dr. Elen Burk MD on 08/13/2017 12: 09 PM Dictated By: ELEN BURK MD 08 Transcribed By: EMMA on 08/13/171208 COPY TO: AYAN VIDAL MD
[2019-08-07] MEDS ORDERED: SODIUM CHLORIDE 0.9% 1000ML 1,000 ML IV STA (09:36)
[2019-08-07] MEDS ORDERED: ONDANSETRON HCL INJ 2MG/ML 2ML 2 MG/ML VIAL IV STA (09:36)
[2019-08-07] MEDS ORDERED: PANTOPRAZOLE 40 MG 10ML VIAL IV STA (09:36)
[2019-08-07] MEDS ORDERED: MORPHINE SULFATE 2 MG/ML SYR 1ML IV STA (09:36)
[2019-08-07 10:54] LABS: BASOPHILS % 0.2 % (0.0-1.0); HEMATOCRIT 32.2 % (34.2-44.1); HEMOGLOBIN 10.1 g/dL (12.0-16.0); LYMPHOCYTES # (AUTO) 1.2 (1.0-3.2); LYMPHOCYTES % 26.9 % (18.0-39.1); MEAN CORPUSCULAR HEMOGLOBIN 25.2 pg (28-32); MEAN CORPUSCULAR HGB CONC 31.4 g/dL (31-35); MEAN CORPUSCULAR VOLUME 80.3 fL (81-99); MONOCYTES # (AUTO) 0.6 (0.2-0.8); MONOCYTES % 12.6 % (4.4-11.3); NEUTROPHILS # (AUTO) 2.6 (2.1-6.9); NEUTROPHILS % 60.1 % (38.7-80.0); PLATELET COUNT 118 x10e3/uL (140-360); RED BLOOD COUNT 4.01 x10e6/uL (3.6-5.1)
[2019-08-07 11:08] LABS: INR 1.06; PROTHROMBIN TIME 14.5 seconds (11.9-14.5)
[2019-08-07 11:09] LABS: PARTIAL THROMBOPLASTIN TIME 35.4 seconds (23.8-35.5)
[2019-08-07 11:11] LABS: ALANINE AMINOTRANSFERASE 10 IU/L (0-55); ALBUMIN 3.9 g/dL (3.5-5.0); ALBUMIN/GLOBULIN RATIO 1.4 (0.8-2.0); ALKALINE PHOSPHATASE 59 IU/L (40-150); ANION GAP 11.9 mmol/L (8-16); BLOOD UREA NITROGEN 15 mg/dL (7-26); BUN/CREATININE RATIO 15 (6-25); CALCIUM 8.3 mg/dL (8.4-10.2); CARBON DIOXIDE 21 mmol/L (22-29); CHLORIDE 111 mmol/L (98-107); CREATINE KINASE 137 IU/L (29-168); CREATININE, SERUM 0.98 mg/dL (0.57-1.11); EST GLOMERULAR FILTRATION RATE > 60 ML/MIN (60-); GLUCOSE 95 mg/dL (74-118); LIPASE 38 U/L (8-78); SODIUM 141 mmol/L (136-145)
[2019-08-07 11:14] LABS: POTASSIUM 2.9 mmol/L (3.5-5.1)
[2019-08-07 11:17] LABS: CLARITY,URINE CLOUDY (CLEAR); COLOR,URINE YELLOW (YELLOW); LEUKOCYTE ESTERASE ,URINE NEGATIVE (NEGATIVE)
--- NOTE | 2019-08-07 11:17 | Diagnostic Imaging Report ---
EXAMINATION: CHEST SINGLE (PORTABLE) INDICATION: Abdominal pain COMPARISON: None FINDINGS: LINES/TUBES:None LUNGS:The lungs are well-inflated. No focal consolidation or pulmonary edema. PLEURA:No pleural effusion or pneumothorax. MEDIASTINUM:The cardiomediastinal silhouette appears normal in size and shape. BONES/SOFT TISSUES:No acute osseous injury. ABDOMEN:No free air under the diaphragm. IMPRESSION: No focal pneumonia or pulmonary edema. Signed by: Lore Durand MD on 08/07/2019 11:13 AM
[2019-08-07 11:18] LABS: BILIRUBIN,URINE SMALL (NEGATIVE); KETONES,URINE TRACE (NEGATIVE); NITRITE,URINE NEGATIVE (NEGATIVE); PROTEIN,URINE DIPSTICK 2+ (NEGATIVE); URINE UROBILINOGEN 0.2 mg/dL (0.2 - 1)
[2019-08-07 11:30] LABS: BACTERIA,URINE RARE /HPF; EPITHELIAL CELLS,URINE FEW /LPF; RBC,URINE 0-5 /HPF (0-5)
[2019-08-07] MEDS ORDERED: POTASSIUM CHLORIDE 20 MEQ TAB CR PO STA (11:36)
[2019-08-07] MEDS ORDERED: KCL 20MEQ/.9 SOD CHL 1,000 ML IV ONE (11:45)
[2019-08-07] MEDS ORDERED: CEFTRIAXONE SOD 1 GM/NS 50 ML 50 ML IV ONE (11:45)
--- NOTE | 2019-08-07 12:21 | Emergency Department Note ---
History of Present Illnes History of Present Illness Chief Complaint: Abdominal Complaints Stated Complaint: DIARRHEA,VOMITING,ABDOMINAL PAIN History of Present Illness This is a 73 year old female . 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 Any updates have been documented here. Past Medical History Recent Fever: No Clinical Suspicion of Infectio: Yes New/Unexplained Change in Ment: No Past Medical History: Hypertension, Anemia, GERD, Hyperlipedemia Other Medical History: CHOLESTEROL INSOMNIA Past Surgical History: Cholecysctectomy, Hysterectomy, Knee Replacement, Lumpectomy, Cataract Removal Other Surgery: Left JAW REPAIR Right breast lumpectomy CARPAL TUNNEL BILAT TOENAIL REMOVAL (bilateral 1st digit and 5th digit). BONE SPUR RIGHT KNEE REPLACEMENT 07/27/15 Social History Smoking Cessation: Never Smoker Counseling Performed: No Alcohol Use: None Any Illegal Drug Use: No TB Exposure/Symptoms: No Physically hurt or threatened: No Family History Family history of heart diseas: No Other Last Tetanus: UNKNOWN Review of Systems Review of Systems Constitutional: no symptoms EENTM: no symptoms Cardiovascular: no symptoms Respiratory: no symptoms Gastrointestinal: as per HPI, abdominal pain, diarrhea, nausea, vomiting Genitourinary: no symptoms Musculoskeletal: no symptoms Integumentary: no symptoms Neurological: no symptoms, weakness (GENERALIZED) Psychological: no symptoms Endocrine: no symptoms Hematological/Lymphatic: no symptoms Review of other systems All other systems reviewed and negative. Physical Exam Related Data Allergies: Coded Allergies: Penicillins (Verified Allergy, Mild, RASH, 08/07/19) kiwi (Verified Allergy, Unknown, IRRITATES TONGUE, 08/07/19) Triage Vital Signs Vital Signs Date Time Temp Pulse Resp B/P (MAP) Pulse Ox O2 Delivery O2 Flow Rate FiO2 08/07/19 09:28 99.7 60 18 158/74 98 Physical Exam CONSTITUTIONAL Constitutional: well-developed, well-nourished HENT HENT: normocephalic, atraumatic, mucosae dry, nose normal, other (EDENTULOUS) HENT - Ear: left ext ear normal, right ext ear normal EYES Eyes: PERRL, conjunctivae normal NECK Neck: ROM normal PULMONARY Pulmonary: effort normal, breath sounds normal CARDIOVASCULAR Cardiovascular: regular rhythm, heart sounds normal, capillary refill normal, normal rate GASTROINTESTINAL Abdominal: soft, tender (MOD UPPER ABD WORSE IN [place] AREA, NO R/G, HYPOACTIVE BOWEL SOUNDS) GENITOURINARY Genitourinary: exam deferred SKIN Skin: warm, dry MUSCULOSKELETAL Musculoskeletal: ROM normal NEUROLOGICAL Neurological: alert, oriented x 3, no gross motor or sensory deficits PSYCHOLOGICAL Psychiatric/behavioral: mood/affect normal, judgement normal Results Laboratory Laboratory Laboratory Tests Test 08/07/19 09:35 White Blood Count 4.38 x10e3/uL (4.8-10.8) Red Blood Count 4.01 x10e6/uL (3.6-5.1) Hemoglobin 10.1 g/dL (12.0-16.0) Hematocrit 32.2 % (34.2-44.1) Mean Corpuscular Volume 80.3 fL (81-99) Mean Corpuscular Hemoglobin 25.2 pg (28-32) Mean Corpuscular Hemoglobin Concent 31.4 g/dL (31-35) Red Cell Distribution Width 15.0 % (11.7-14.4) Platelet Count 118 x10e3/uL (140-360) Neutrophils (%) (Auto) 60.1 % (38.7-80.0) Lymphocytes (%) (Auto) 26.9 % (18.0-39.1) Monocytes (%) (Auto) 12.6 % (4.4-11.3) Eosinophils (%) (Auto) 0.0 % (0.0-6.0) Basophils (%) (Auto) 0.2 % (0.0-1.0) Neutrophils # (Auto) 2.6 (2.1-6.9) Lymphocytes # (Auto) 1.2 (1.0-3.2) Monocytes # (Auto) 0.6 (0.2-0.8) Eosinophils # (Auto) 0.0 (0.0-0.4) Basophils # (Auto) 0.0 (0.0-0.1) Absolute Immature Granulocyte (auto 0.01 x10e3/uL (0-0.1) Prothrombin Time 14.5 seconds (11.9-14.5) Prothromb Time International Ratio 1.06 Activated Partial Thromboplast Time 35.4 seconds (23.8-35.5) Urine Color Yellow (YELLOW) Urine Clarity Cloudy (CLEAR) Urine pH 6 (5 - 7) Urine Specific [place] >=1.030 (1.010-1.025) Urine Protein 2+ (NEGATIVE) Urine Glucose (UA) Negative (NEGATIVE) Urine Ketones Trace (NEGATIVE) Urine Blood Trace (NEGATIVE) Urine Nitrite Negative (NEGATIVE) Urine Bilirubin Small (NEGATIVE) Urine Urobilinogen 0.2 mg/dL (0.2 - 1) Urine Leukocyte Esterase Negative (NEGATIVE) Urine RBC 0-5 /HPF (0-5) Urine WBC 6-10 /HPF (0-5) Urine Epithelial Cells Few /LPF (NONE) Urine Bacteria Rare /HPF (NONE) Sodium Level 141 mmol/L (136-145) Potassium Level 2.9 mmol/L (3.5-5.1) Chloride Level 111 mmol/L (98-107) Carbon Dioxide Level 21 mmol/L (22-29) Anion Gap 11.9 mmol/L (8-16) Blood Urea Nitrogen 15 mg/dL (7-26) Creatinine 0.98 mg/dL (0.57-1.11) Estimat Glomerular Filtration Rate > 60 ML/MIN (60-) BUN/Creatinine Ratio 15 (6-25) Glucose Level 95 mg/dL (74-118) Calcium Level 8.3 mg/dL (8.4-10.2) Magnesium Level 2.0 MG/DL (1.3-2.1) Total Bilirubin 0.9 mg/dL (0.2-1.2) Aspartate Amino Transf (AST/SGOT) 19 IU/L (5-34) Alanine Aminotransferase (ALT/SGPT) 10 IU/L (0-55) Alkaline Phosphatase 59 IU/L (40-150) Creatine Kinase 137 IU/L (29-168) Creatine Kinase MB 0.70 ng/mL (0-5.0) Troponin I 0.026 ng/mL (0-0.300) B-Type Natriuretic Peptide 264.8 pg/mL (0-100) Total Protein 6.7 g/dL (6.5-8.1) Albumin 3.9 g/dL (3.5-5.0) Globulin 2.8 g/dL (2.3-3.5) Albumin/Globulin Ratio 1.4 (0.8-2.0) Lipase 38 U/L (8-78) Lab results reviewed: Yes Laboratory comments PANCYTOPENIA, HYPOKALEMIA, 6-10 WBC IN URINE BUT LE&NIT NEG, TR KETONES Imaging Y: Yes Impressions CXR NORMAL CT ABD/PELVIS WITH CONTRAST IMPRESSION: No acute findings in the abdomen or pelvis. 2.7 cm right adrenal nodule has been unchanged dating back to 2018 and most likely represents a benign adenoma. No further follow-up imaging is necessary. 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 Assessment & Plan Assessment & Plan Problems: (1) Abdominal pain (2) Dehydration (3) Hypokalemia (4) Vomiting and diarrhea (5) UTI (urinary tract infection) Last Vital Signs Date Time Temp Pulse Resp B/P (MAP) Pulse Ox O2 Delivery O2 Flow Rate FiO2 08/07/19 09:28 99.7 60 18 158/74 98 Home Meds Reported Medications Aspirin (ASPIRIN) 81 Mg Tab.chew, 81 MG PO DAILY, #30 09/05/18 Docusate Sodium (DOCUSATE SODIUM) 100 Mg Capsule, 100 MG PO DAILY, CAP 09/03/18 Metoclopramide Hcl (REGLAN) 5 Mg Tablet, 5 MG PO BID, #60 0 Refills 05/25/18 Ondansetron Hcl* (ZOFRAN*) 4 Mg Tablet, 4 MG SL Q4HR PRN for NAUSEA, #60 2 Refills 05/25/18 Nifedipine (PROCARDIA XL) 30 Mg Tab.er.24, 60 MG PO QAM, #90 TAB 3 Refills 05/25/18 Prednisolone (PREDNISOLONE) 15 Mg/5 Ml Solution, 1 DROP OP DAILY, ML 05/22/18 Ferrous Sulfate (FERROUS SULFATE) 324 Mg Tablet.dr, 324 MG PO DAILY 05/19/18 Rosuvastatin Calcium (CRESTOR) 10 Mg Tab, 40 MG PO DAILY THERAPEUTICALLY SUBSTITUTED WITH SIMVASTATIN 40MG 05/19/18 [linzess] No Conflict Check, 145 MCG PO DAILY 08/13/17 Furosemide (FUROSEMIDE) 40 Mg Tablet, 40 MG PO Daily, #30 TAB 08/13/17 Trazodone Hcl (TRAZODONE HCL) 50 Mg Tablet, 100 MG PO HS, #30 TAB 08/13/17 Potassium Chloride* (K DUR*) 10 Meq Tabcr, 20 MEQ PO DAILY 04/28/16 Omeprazole (OMEPRAZOLE) 40 Mg Capsule.dr, 40 MG PO DAILY 03/17/16 Losartan Potassium (LOSARTAN POTASSIUM) 100 Mg Tablet, 100 MG PO DAILY, TAB 03/17/16 Isosorbide Mononitrate (ISOSORBIDE MONONITRATE ER) 30 Mg Tab.er.24h, 30 MG PO DAILY, #30 TAB 03/17/16 Medications in the ED Pantoprazole Sodium 40 mg ONCE STAT IV ; Start 08/07/19 at 09:36; Stop 08/07/19 at 09:37; Status UNV Morphine Sulfate 2 mg ONCE STAT IV ; Start 08/07/19 at 09:36; Stop 08/07/19 at 09:37; Status UNV Ondansetron HCl 4 mg ONCE STAT IV ; Start 08/07/19 at 09:36; Stop 08/07/19 at 09:37; Status UNV Sodium Chloride 1,000 ml @ 0 mls/hr Q0M STAT IV ; Start 08/07/19 at 09:36; Stop 08/07/19 at 09:41; Status DC RAE QUIÑONEZ MD August 07, 2019 09:59
[2019-08-07] MEDS ORDERED: POTASSIUM CHLORIDE 20MEQ/15ML UDC PO ONE (12:45)
[2019-08-07] MEDS ORDERED: ONDANSETRON HCL INJ 2MG/ML 2ML 2 MG/ML VIAL IV PRN (12:45)
[2019-08-07] MEDS ORDERED: IOPAMIDOL 370 MG/ML 200 ML INFUS..BTL INJ ONE (12:48)
[2019-08-07] MEDS ORDERED: SODIUM CHLORIDE 0.9% 50ML 50 ML ONE (12:48)
--- OUTSIDE RECORDS SUMMARY | 2019-08-07 12:55 | XMS REPORT ---
Author Author [facility] t Organization [facility] t Address [address] [place] [address] Phone Unavailable Care Team Providers Care White Sourer Name Role Phone Summer RAYA MD (HENRY) SILVANO PCP Candido QUIÑONEZ Attphys Unavailable JASMINA KOHIL Attphys Unavailable JASMINA KOHLI Admparag Unavailable Payers Payer Name Policy Type Policy Number Effective Date Expiration Date S david Aquino Plus [id number] 2018 00:00:00 [facility] [id number] 2018 00:00:00 [facility] [place] [employer] [id number] 2017 00:00:00 [facility] Problems Condition Name Condition Details Condition Category Status Onset Date Resolution Date Last Treatment Date Treating Clinician Comments Source Decreased blood leukocyte number Decreased Blood Leukocyte Numbe r Problem Active 2016-05-20 00:00:00 [facility] Neoplasm of adrenal gland Neoplasm of Adrenal Gland Problem Ac tive 2016-04-22 00:00:00 [facility] Simple renal cyst Simple Renal Cyst Problem Active 2016-04-22 00:00:00 [facility] Herpesvirus infection Herpesvirus Infection Problem Active 201 09-05-05 00:00:00 [facility] P ractice History of total knee arthroplasty History of Total Knee Arthrop lasty Problem Active 2015-08-18 00:00:00 [facility] Anemia Anemia Problem Active 2015-07-31 00:00:00 [facility] Hypokalemia Hypokalemia Problem Active 2015-07-31 00:00:00 [facility] Vomiting Vomiting Problem Active 2015-07-31 00:00:00 [facility] Weakness Weakness Problem Active 2015-07-31 00:00:00 [facility] Idiopathic osteoarthritis Idiopathic Osteoarthritis Problem Ac tive 2015-04-14 00:00:00 [facility] Pure hypercholesterolemia Pure Hypercholesterolemia Problem Ac tive 2015-01-06 00:00:00 [facility] Alpha trait thalassemia Alpha Trait Thalassemia Problem Active 2015-01-06 00:00:00 [facility] Hypertensive heart disease Hypertensive Heart Disease Problem Active 2015-01-06 00:00:00 [facility] Temporomandibular joint disorder Temporomandibular Joint Disorde r Problem Active 2015-01-06 00:00:00 [facility] Gastroesophageal reflux disease without esophagitis Ga stroesophageal Reflux Disease without Esophagitis Problem Active 2015-01-06 00:00:00 [facility] Constipation Constipation Problem Active 2015-01-06 00:00:00 [facility] Vascular insufficiency of intestine Ischemic colitis, enteritis, or enterocolitis Problem Active [facility] Chest pain Chest pain Problem Active [facility] Body mass index 30+ - obesity Body Mass Index 30+ - Obesity Problem Active 2016-10-18 00:00:00 2017-01-19 00:00:00 [facility] Pain in right knee Pain in Right Knee Problem Active 2015-03-27 9 00:00:00 2016-10-18 00:00:00 [facility] Screening for disorder Screening for Disorder Problem Active 2015-04-14 00:00:00 2016-05-19 00:00:00 [facility] Allergies, Adverse Reactions, Alerts Allergy Name Allergy Type Status Severity Reaction(s) Onset Date Inacti ve Date Treating Clinician Comments Source Kiwi Allergy to Substance Active Unknown IRRITATES TONGUE 2016-02-22 00:00:00 [facility] PENICILLINS Allergy to substance Active 2015-08-18 00:00:00 [facility] Penicillin Allergy to Substance Active Mild RASH 2015-07-31 00:00:00 [facility] Social History Smoking Status Start Date Stop Date Source Never Smoker [facility] ractice Medications Ordered Medication Name Filled Medication Name Start Date Stop Da te Current Medication? Ordering Clinician Indication Dosage Frequency Signature (SIG) Comments Components Source dicyclomine 10 mg capsule dicyclomine 10 mg capsule 2016-12-06 0 0:00:00 2017-01-19 00:00:00 No dicyclomine 10 mg ca psule [facility] Aspirin 325 Mg Tab, 325 Mg Oral Aspirin 325 Mg Tab, 325 Mg O ral 2015-07-28 00:00:00 2015-08-05 00:00:00 No Andrew De [place] [facility] 325 Twice A Day [facility] Aspirin 81 Mg Tab.chew Aspirin 81 Mg Tab.chew Yes 81 Daily [facility] Docusate Sodium 100 Mg Capsule Docusate Sodium 100 Mg Capsule Yes 100 Daily [facility] Ferrous Sulfate 324 Mg Tablet. Ferrous Sulfate 324 Mg Tablet. Yes 324 Daily [facility] Furosemide 40 Mg Tablet Furosemide 40 Mg Tablet Yes 40 Daily [facility] Isosorbide Mononitrate (Isosorbide Mononitrate Er) 30 Mg Tab.er.24h Isosorbide Mononitrate (Isosorbide Mononitrate Er) 30 Mg Tab.er.24h Yes 30 Daily [facility] Linzess Linzess Yes 145 Daily [facility] Losartan Potassium 100 Mg Tablet Losartan Potassium 100 Mg Tablet Yes 100 Daily [facility] Metoclopramide Hcl (Reglan) 5 Mg Tablet Metoclopramide Hcl ( Reglan) 5 Mg Tablet Yes 5 Twice A Day [facility] Nifedipine (Procardia Xl) 30 Mg Tab.er.24 Nifedipine ( Procardia Xl) 30 Mg Tab.er.24 Yes 60 Every Morning [facility] Omeprazole 40 Mg Capsule. Omeprazole 40 Mg Capsule. Yes 40 Daily [facility] Ondansetron Hcl (Zofran*) 4 Mg Tablet Ondansetron Hcl (Zofran*) 4 M g Tablet Yes 4 Every 4 Hours as needed for Nausea [facility] Potassium Chloride (K Dur*) 10 Meq Tabcr Potassium Chl oride (K Dur*) 10 Meq Tabcr Yes 20 Daily [facility] Prednisolone 15 Mg/5 Ml Solution Prednisolone 15 Mg/5 Ml Solution Yes 1 Daily [facility] Rosuvastatin Calcium (Crestor) 10 Mg Tab Rosuvastatin Calcium (Crestor) 10 Mg Tab Yes 40 Daily [facility] Trazodone Hcl 50 Mg Tablet Trazodone Hcl 50 Mg Tablet Yes 100 Bedtime [facility] atenolol 25 mg tablet TAKE ONE TABLET BY MOUTH ONCE A DAY AT BEDTIME. atenolol 25 mg tablet TAKE ONE TABLET BY MOUTH ONCE A DAY AT BEDTIME. No atenolol 25 mg tablet TAKE ONE TABLET BY MOUTH ONCE A DAY AT BEDTIME. [facility] atorvastatin 40 mg tablet TAKE ONE TABLET BY MOUTH ONC E A DAY. atorvastatin 40 mg tablet TAKE ONE TABLET BY MOUTH ONCE A DAY. No atorvastatin 40 mg tablet TAKE ONE TABLET BY MOUTH ONCE A DAY. [facility] furosemide 40 mg tablet TAKE ONE TABLET BY MOUTH EVERY MORNING. furosemide 40 mg tablet TAKE ONE TABLET BY MOUTH EVERY MORNING. No furosemide 40 mg tablet TAKE ONE TABLET BY MOUTH EVERY MORNING. [facility] isosorbide mononitrate ER 30 mg tablet,extended releas e 24 hr isosorbide mononitrate ER 30 mg tablet,extended release 24 hr No isosorbide mononitrate ER 30 mg tablet,extended release 24 hr [facility] Lidocaine Viscous 2 % mucosal solution Lidocaine Viscous 2 % muc osal solution No Lidocaine Viscous 2 % mucosal so lution [facility] Linzess 145 mcg capsule TAKE ONE CAPSULE BY MOUTHEVERY DAY. Linzess 145 mcg capsule TAKE ONE CAPSULE BY MOUTHEVERY DAY. No Linzess 145 mcg capsule TAKE ONE CAPSULE BY MOUTHEVERY DAY. [facility] losartan 100 mg tablet TAKE ONE TABLET BY MOUTH ONCE A DAY. losartan 100 mg tablet TAKE ONE TABLET BY MOUTH ONCE A DAY. No losartan 100 mg tablet TAKE ONE TABLET BY MOUTH ONCE A DAY. [facility] morphine ER 100 mg tablet,extended release morphine ER 100 mg tablet,extended release No morphine ER 100 mg tablet,exte nded release [facility] omeprazole 40 mg capsule,delayed release Take 1 capsule every day by oral route for 90 days. omeprazole 40 mg capsule,delayed release Take 1 capsule every day by oral route for 90 days. No 1capsule(s) Q 1D omeprazole 40 mg capsule,delayed release Take 1 capsule every day by oral route for 90 days. [facility] polyethylene glycol 3350 17 gram/dose oral powder poly ethylene glycol 3350 17 gram/dose oral powder No po lyethylene glycol 3350 17 gram/dose oral powder [facility] ice potassium chloride ER 10 mEq tablet,extended release p otassium chloride ER 10 mEq tablet,extended release No potassium chloride ER 10 mEq tablet,extended release [facility] ractice trazodone 100 mg tablet trazodone 100 mg tablet No trazodone 100 mg tablet [facility] ice trazodone 50 mg tablet trazodone 50 mg tablet No trazodone 50 mg tablet [facility] ice valacyclovir 500 mg tablet valacyclovir 500 mg tablet No valacyclovir 500 mg tablet [facility] Atenolol 50 Mg Tablet, 12.5 Mg Oral Atenolol 50 Mg Tablet, 12.5 Mg Oral 2018-05-25 00:00:00 No 12.5 Twice A Day [facility] Atorvastatin Calcium 20 Mg Tablet, 40 Mg Oral Atorvast atin Calcium 20 Mg Tablet, 40 Mg Oral 2018-05-19 00:00:00 No 40 Bedtime [facility] Atenolol 50 Mg Tablet, 25 Mg Oral Atenolol 50 Mg Tablet, 25 Mg O ral 2017-08-15 00:00:00 No 25 Bedtime [facility] Dicyclomine Hcl (Bentyl) 10 Mg Capsule, 10 Mg Oral Dic yclomine Hcl (Bentyl) 10 Mg Capsule, 10 Mg Oral 2017-08-13 00:00:00 No 10 B efore Meals [facility] Furosemide 40 Mg Tablet, 40 Mg Oral Furosemide 40 Mg Tablet, 40 Mg Oral 2017-08-13 00:00:00 No 40 Daily [facility] Gabapentin 300 Mg Capsule, 600 Mg Oral Gabapentin 300 Mg Capsule , 600 Mg Oral 2017-08-13 00:00:00 No 600 Three Times A Day [facility] Ondansetron (Zofran Odt) 4 Mg Tab.rapdis, 4 Mg Oral On dansetron (Zofran Odt) 4 Mg Tab.rapdis, 4 Mg Oral 2017-08-13 00:00:00 No 4 Every 4 Hours as needed for Nausea [facility] gabapentin 600 mg tablet gabapentin 600 mg tablet 2017-07-03 00: 00:00 No gabapentin 600 mg tablet [facility] loperamide 2 mg capsule loperamide 2 mg capsule 2017-07-03 00:00 :00 No loperamide 2 mg capsule [facility] promethazine-DM 6.25 mg-15 mg/5 mL syrup take 1 or 2 tsp every 6 hours as needed for cough promethazine-DM 6.25 mg-15 mg/5 mL syrup take 1 or 2 tsp every 6 hours as needed for cough 2017-07-03 00:00:00 No promethazine-DM 6.25 mg-15 mg/5 mL syrup take 1 or 2 tsp every 6 hours as needed for cough [facility] metoprolol succinate ER 50 mg tablet,ext ended [...] oral route at bedtime for 90 days. [facility] Mov[facility] 25 mg tablet Movantik 25 mg tablet 2017-01-19 00:00:00 No Movantik 25 mg tablet [facility] ctice Amitiza 24 mcg capsule Amitiza 24 mcg capsule 2016-12-06 00:00:00 No Amitiza 24 mcg capsule [facility] Pr actice TriLyte With Flavor Packets 420 gram oral solution Tri Lyte With Flavor Packets 420 gram oral solution 2016-12-06 00:00:00 No TriLyte With Flavor Packets 420 gram oral solution [facility] clotrimazole 1 % topical cream clotrimazole 1 % topical cream 2016-10-18 00:00:00 No clotrimazole 1 % topical cream [facility] Clotrimazole-3 2 % vaginal cream Insert 1 applicatorful every day by vaginal route at bedtime for 3 days. Clotrimazole-3 2 % vaginal cream Insert 1 applicatorful every day by vaginal route at bedtime for 3 days. 2016-10-18 00:00:00 No 1applicator(s)ful Q1D Clotrim azole-3 2 % vaginal cream Insert 1 applicatorful every day by vaginal route at bedtime for 3 days. [facility] nitrofurantoin monohydrate/macrocrystals 100 mg capsul e nitrofurantoin monohydrate/macrocrystals 100 mg capsule 2016-10-18 00:00:00 No nitrofurantoin monohydrate/macrocrystals 100 mg capsule [facility] terconazole 0.8 % vaginal cream terconazole 0.8 % vaginal cream 2016-10-18 00:00:00 No terconazole 0.8 % vaginal cream [facility] Amitiza 8 mcg capsule Amitiza 8 mcg capsule 2016-09-21 00:00:00 No Amitiza 8 mcg capsule [facility] ctice Tylenol Arthritis Pain 650 mg tablet,ext [...] hours by oral route for 7 days. [facility] loperamide 2 mg tablet Take 2 tablets 3 times a day by oral route as needed for 10 days. loperamide 2 mg tablet Take 2 tablets 3 times a day by oral route as needed for 10 days. 2016-05-19 00:00:00 No 2 TID loperamide 2 mg tablet Take 2 tablets 3 times a day by oral route as needed for 10 days. [facility] Practice Potassium Chloride 10 Meq Tab.er.prt, 10 Meq Oral Pota ssium Chloride 10 Meq Tab.er.prt, 10 Meq Oral 2016-04-28 00:00:00 No 10 Daily [facility] Lubiprostone (Amitiza) 24 Mcg Capsule, 24 Mcg Oral Lub iprostone (Amitiza) 24 Mcg Capsule, 24 Mcg Oral 2016-04-27 00:00:00 No 24 Twi ce A Day [facility] amlodipine 5 mg tablet amlodipine 5 mg tablet 2016-04-21 00:00:00 No amlodipine 5 mg tablet [facility] Pr actice Acetaminophen 325 Mg Tablet, 650 Mg Oral Acetaminophen 325 Mg Tablet, 650 Mg Oral 2016-03-17 00:00:00 No 650 Every 6 Hours [facility] Atenolol 25 Mg Tablet, 25 Mg Oral Atenolol 25 Mg Tablet, 25 Mg O ral 2016-03-17 00:00:00 No 25 Bedtime [facility] Atorvastatin Calcium (Lipitor) 20 Mg Tablet, 40 Mg Ora l Atorvastatin Calcium (Lipitor) 20 Mg Tablet, 40 Mg Oral 2016-03-17 00:00:00 No 40 Bedtime [facility] Furosemide (Lasix) 40 Mg Tablet, 40 Mg Oral Furosemide (Lasix) 40 Mg Tablet, 40 Mg Oral 2016-03-17 00:00:00 No 40 Daily [facility] Gabapentin 600 Mg Tablet, 600 Mg Oral Gabapentin 600 Mg Tablet, 600 Mg Oral 2016-03-17 00:00:00 No 600 Three Times A Day [facility] Isosorbide Mononitrate (Isosorbide Mononitrate Er) 30 Mg Tab.er.24h, 30 Mg Oral Isosorbide Mononitrate (Isosorbide Mononitrate Er) 30 Mg Tab.er.24h, 30 Mg Oral 2016-03-17 00:00:00 No 30 Daily [facility] Omeprazole 40 Mg Capsule., 40 Mg Oral Omeprazole 40 Mg Cap lefty., 40 Mg Oral 2016-03-17 00:00:00 No 40 Twice A Day [facility] Ondansetron (Zofran Odt) 4 Mg Tab.rapdis, 4 Mg Oral On dansetron (Zofran Odt) 4 Mg Tab.rapdis, 4 Mg Oral 2016-03-17 00:00:00 No 4 Every 4 Hours for Nausea [facility] Trazodone Hcl 50 Mg Tablet, 50 Mg Oral Trazodone Hcl 50 Mg Table t, 50 Mg Oral 2016-03-17 00:00:00 No 50 Bedtime [facility] furosemide 20 mg tablet furosemide 20 mg tablet 2016-03-11 00:00 :00 No furosemide 20 mg tablet [facility] hydrochlorothiazide 25 mg tablet hydrochlorothiazide 25 mg table t 2016-03-11 00:00:00 No hydrochlorothiazide 25 mg table t [facility] meloxicam 15 mg tablet meloxicam 15 mg tablet 2016-03-11 00:00:00 No meloxicam 15 mg tablet [facility] Pr actice naproxen 500 mg tablet naproxen 500 mg tablet 2016-03-11 00:00:00 No naproxen 500 mg tablet [facility] actice silver sulfadiazine 1 % topical cream silver sulfadiazine 1 % to pical cream 2016-03-11 00:00:00 No silver sulfadiazine 1 % topical cream [facility] valacyclovir 1 gram tablet valacyclovir 1 gram tablet 2015 00:00:00 No valacyclovir 1 gram tablet [facility] Losartan Potassium (Cozaar) 100 Mg Tablet, 100 Mg Oral Losartan Potassium (Cozaar) 100 Mg Tablet, 100 Mg Oral 2016-02-25 00:00:00 No 100 Daily [facility] Potassium Chloride 10 Meq Tablet.er, 10 Meq Oral Potas sium Chloride 10 Meq Tablet.er, 10 Meq Oral 2016-02-25 00:00:00 No 10 D aily [facility] Clonidine (Catapres-Tts 2) 1 Each Patch.tdwk, 1 Each O ral Clonidine (Catapres- Tts 2) 1 Each Patch.tdwk, 1 Each Oral 2016-02-22 00:00:00 No 1 for Elevated Blood Pressure [facility] Enoxaparin Sodium (Lovenox) 60 Mg/0.6 Ml Inj, 40 Mg [place]xton bcutaneously Enoxaparin Sodium (Lovenox) 60 Mg/0.6 Ml Inj, 40 Mg Subcutaneously 2015 00:00:00 No 40 Daily as needed for Cough [facility] Fe Fumarate/Fa/Mv, Min Comb#15 (Hemocyte Plus Capsule) 1 Each Capsule, 1 Cap Oral Fe Fumarate/Fa/Mv, Min Comb#15 (Hemocyte Plus Capsule) 1 Each Capsule, 1 Cap Oral 2016-02-22 00:00:00 No 1 Twice A Day [facility] Metoclopramide Hcl 10 Mg Tablet, 10 Mg Oral Metoclopra mide Hcl 10 Mg Tablet, 10 Mg Oral 2016-02-22 00:00:00 No 10 Before Meals And At Bedtime [facility] ciprofloxacin 500 mg tablet ciprofloxacin 500 mg tablet 2016-02-12 00:00:00 No ciprofloxacin 500 mg tablet [facility] clindamycin HCl 150 mg capsule clindamycin HCl 150 mg capsule 2016-02-12 00:00:00 No clindamycin HCl 150 mg capsule [facility] hydrocodone 7.5 mg-acetaminophen 325 mg tablet hydroco done 7.5 mg-acetaminophen 325 mg tablet 2016-02-12 00:00:00 No hydrocodone 7.5 mg-acetaminophen 325 mg tablet [facility] methylprednisolone 4 mg tablets in a dose pack methylp rednisolone 4 mg tablets in a dose pack 2016-02-12 00:00:00 No methylprednisolone 4 mg tablets in a dose pack [facility] ondans[facility]ron HCl 4 mg tablet ondansetron HCl 4 mg tablet 2016-02-12 00:00:00 No ondansetron HCl 4 mg tablet [facility] ondansetron HCl 8 mg tablet ondansetron HCl 8 mg tablet 2016-02-12 00:00:00 No ondansetron HCl 8 mg tablet [facility] sulfamethoxazole 400 mg-trimethoprim 80 mg tablet sulf amethoxazole 400 mg- trimethoprim 80 mg tablet 2016-02-12 00:00:00 No sulfamethoxazole 400 mg-trimethoprim 80 mg tablet [facility] trazodone 150 mg tablet trazodone 150 mg tablet 2016-02-12 00:00 :00 No trazodone 150 mg tablet [facility] Furosemide 40 Mg Tablet, 40 Mg Oral Furosemide 40 Mg Tablet, 40 Mg Oral 2015-08-05 00:00:00 No 40 Daily [facility] Hydrochlorothiazide 25 Mg Tablet, 25 Mg Oral Hydrochlo rothiazide 25 Mg Tablet, 25 Mg Oral 2015-08-05 00:00:00 No 25 Daily [facility] Hydrocodone Bit/Acetaminophen (Hydrocodo n-Acetaminoph 7.5-325) 1 Each Tablet, 1 Tab Oral Hydrocodone Bit/Acetaminophen (Hydrocodo n-Acetaminoph 7.5-325) 1 Each Tablet, 1 Tab Oral 2015-08-05 00:00:00 No 1 Every 4 Hours [facility] Lubiprostone (Amitiza) 24 Mcg Capsule, 24 Mcg Oral Lub iprostone (Amitiza) 24 Mcg Capsule, 24 Mcg Oral 2015-08-05 00:00:00 No 24 Tiffanie ly [facility] Morphine Sulfate (Morphine Sulfate Er) 100 Mg Tablet.e r, 100 Mg Oral Morphine Sulfate (Morphine Sulfate Er) 100 Mg Tablet.er, 100 Mg Oral 2015-08-05 00:00:00 No 100 As Needed [facility] Ondansetron Hcl 8 Mg Tablet, 8 Mg Oral Ondansetron Hcl 8 Mg Tabl et, 8 Mg Oral 2015-08-05 00:00:00 No 8 As Needed [facility] Valacyclovir Hcl (Valacyclovir) 1,000 Mg Tablet, 1000 Mg Oral Valacyclovir Hcl (Valacyclovir) 1,000 Mg Tablet, 1000 Mg Oral 2015-08-05 00:00:00 No 1000 As Needed [facility] Naproxen 500 Mg Tablet, 500 Mg Oral Naproxen 500 Mg Tablet, 500 Mg Oral 2015-07-28 00:00:00 No 500 Twice A Day [facility] Duloxetine Hcl (Cymbalta) 30 Mg Capsule., 60 Mg Oral Duloxetine Hcl (Cymbalta) 30 Mg Capsule., 60 Mg Oral 2015-07-24 00:00:00 No 60 Daily [facility] Gabapentin 300 Mg Capsule, 300 Mg Oral Gabapentin 300 Mg Capsule , 300 Mg Oral 2015-07-24 00:00:00 No 300 2-3 Times Daily [facility] Linzess , 290 Mcg Oral Linzess , 290 Mcg Oral 2015-07-24 00:00:0 0 No 290 Daily [facility] Losartan Potassium 100 Mg Tablet, 100 Mg Oral Losartan Potassium 100 Mg Tablet, 100 Mg Oral 2015-07-24 00:00:00 No 100 Daily [facility] Meloxicam 7.5 Mg Tablet, 15 Mg Oral Meloxicam 7.5 Mg Tablet, 15 Mg Oral 2015-07-24 00:00:00 No 15 Daily [facility] Tramadol Hcl 50 Mg Tablet, 50 Mg Oral Tramadol Hcl 50 Mg Tablet, 50 Mg Oral 2015-07-24 00:00:00 No 50 as needed [facility] Acyclovir 400 Mg Tablet, 400 Mg Oral Acyclovir 400 Mg Tablet, 40 0 Mg Oral 2014-05-07 00:00:00 No 400 2-3 Times Daily [facility] Hydrochlorothiazide (Esidrix*) 25 Mg Tab, 25 Mg Oral H ydrochlorothiazide (Esidrix*) 25 Mg Tab, 25 Mg Oral 2014-05-07 00:00:00 No 25 Daily [facility] Metoprolol Succinate 50 Mg Tab.sr.24h, 50 Mg Oral Meto prolol Succinate 50 Mg Tab.sr.24h, 50 Mg Oral 2014-05-07 00:00:00 No 50 D aily [facility] Ranitidine Hcl 150 Mg Tablet, 150 Mg Oral Ranitidine H cl 150 Mg Tablet, 150 Mg Oral 2014-05-07 00:00:00 No 150 1-2 Times Daily [facility] Sertraline Hcl 100 Mg Tablet, 100 Mg Oral Sertraline H cl 100 Mg Tablet, 100 Mg Oral 2014-05-07 00:00:00 No 100 Daily [facility] Simvastatin 80 Mg Tablet, 80 Mg Oral Simvastatin 80 Mg Tablet, 8 0 Mg Oral 2014-05-07 00:00:00 No [address] [facility] Immunizations Ordered Immunization Name Filled Immunization Name Date Status Comments Source influenza, high dose seasonal influenza, high dose seasonal 2016 12:28:00 Completed [facility] influenza, injectable, quadrivalent influenza, injectable, q uadrivalent 2015-12-14 00:00:00 Completed [facility] ice influenza, seasonal, injectable influenza, seasonal, injecta ble 2014-12-12 00:00:00 Completed [facility] ice influenza, seasonal, injectable influenza, seasonal, injecta ble 2013-12-16 00:00:00 Completed [facility] ice Vital Signs Vital Name Observation Time Observation Value Comments Source BP Diastolic 2017-07-03 00:00:00 63 mm[Hg] [facility] Height 2017-07-03 00:00:00 66 [in_i] [facility] BMI (Body Mass Index) 2017-07-03 00:00:00 30.5 kg/m2 [facility] BP Systolic 2017-07-03 00:00:00 123 mm[Hg] [facility] Body Weight 2017-07-03 00:00:00 189 [lb_av] [facility] BP Diastolic 2017-03-28 00:00:00 72 mm[Hg] [facility] Height 2017-03-28 00:00:00 66 [in_i] [facility] BMI (Body Mass Index) 2017-03-28 00:00:00 32.9 kg/m2 [facility] BP Systolic 2017-03-28 00:00:00 126 mm[Hg] [facility] Body Weight 2017-03-28 00:00:00 204 [lb_av] [facility] BP Diastolic 2017-01-19 00:00:00 82 mm[Hg] [facility] Height 2017-01-19 00:00:00 66 [in_i] [facility] BMI (Body Mass Index) 2017-01-19 00:00:00 33 kg/m2 [facility] BP Systolic 2017-01-19 00:00:00 154 mm[Hg] [facility] Body Weight 2017-01-19 00:00:00 204.2 [lb_av] [facility] BP Diastolic 2016-12-06 00:00:00 64 mm[Hg] [facility] Height 2016-12-06 00:00:00 66 [in_i] [facility] BMI (Body Mass Index) [...] Practice Body Weight 2015-06-09 00:00:00 236.41 [lb_av] [facility] BP Diastolic 2015-05-20 00:00:00 71 mm[Hg] [facility] Height 2015-05-20 00:00:00 70 [in_i] [facility] BMI (Body Mass Index) 2015-05-20 00:00:00 33.92 kg/m2 [facility] BP Systolic 2015-05-20 00:00:00 127 mm[Hg] [facility] Body Weight 2015-05-20 00:00:00 236.4 [lb_av] [facility] BP Diastolic 2015-04-14 00:00:00 60 mm[Hg] [facility] Height 2015-04-14 00:00:00 70 [in_i] [facility] BMI (Body Mass Index) 2015-04-14 [...] (Body Mass Index) 2014-06-11 00:00:00 36.61 kg/m2 [facility] BP Systolic 2014-06-11 00:00:00 140 [...] Family Practice Height 2014-04-02 00:00:00 70 [in_i] [facility] BMI (Body Mass Index) 2014-04-02 00:00:00 38.08 kg/m2 [facility] BP Systolic 2014-04-02 00:00:00 128 mm[Hg] [facility] Body Weight 2014-04-02 00:00:00 265.4 [lb_av] [facility] BP Diastolic 2014-02-18 00:00:00 80 mm[Hg] [facility] Height 2014-02-18 00:00:00 70 [in_i] [facility] BMI (Body Mass Index) 2014-02-18 00:00:00 38.16 kg/m2 [facility] BP Systolic 2014-02-18 00:00:00 130 mm[Hg] [facility] Body Weight 2014-02-18 00:00:00 266 [lb_av] [facility] BP Diastolic 2013-12-16 00:00:00 60 mm[Hg] [facility] Height 2013-12-16 00:00:00 70 [in_i] [facility] BMI (Body Mass Index) 2013-12-16 00:00:00 38.08 kg/m2 [facility] BP Systolic 2013-12-16 00:00:00 130 mm[Hg] [facility] Body Weight 2013-12-16 00:00:00 265.4 [lb_av] [facility] Height 2013-10-31 00:00:00 70 [in_i] [facility] Body Weight 2013-10-31 00:00:00 262.2 [lb_av] [facility] Height 2013-07-31 00:00:00 70 [in_i] [facility] Body Weight 2013-07-31 00:00:00 271 [lb_av] [facility] Height 2013-06-24 00:00:00 70 [in_i] [facility] Body Weight 2013-06-24 00:00:00 271 [lb_av] [facility] Height 2013-05-31 00:00:00 70 [in_i] [facility] Body Weight 2013-05-31 00:00:00 268.4 [lb_av] [facility] Height 2013-04-01 00:00:00 70 [in_i] [facility] Body Weight 2013-04-01 00:00:00 268.2 [lb_av] [facility] Height 2013-03-01 00:00:00 70 [in_i] [facility] Body Weight 2013-03-01 00:00:00 270.8 [lb_av] [facility] Procedures Procedure Date / Time Performed Performing Clinician [facility] e Computed tomography of abdomen and pelvis with contrast 2018 00:00:00 EMMANUEL CASTILLO [facility] Computed tomography of abdomen and pelvis with contrast 2017 00:00:00 VIRY STACK [facility] X-ray of chest, two views 2018-01-16 00:00:00 VIRY STACK [facility] bone density 2016-05-19 00:00:00 [facility] MAMMO, screening, bilateral 2016-05-19 00:00:00 [facility] Carpal Tunnel Surgery [facility] Cataract Surgery Complex [facility] Cholecystectomy [facility] Hysterectomy (Total) [facility] Practice Plan of Care Planned Activity Planned Date Details Comments Source Instructions [facility] Instructions [facility] Instructions [facility] Encounters Start Date/Time End Date/Time Encounter Type Admission Type Attendi [facility] Care Department Encounter ID Source 2018-09-02 23:17:00 2018-09-02 20:38:00 Admitted Inpatient (obs) 1 RAE QUIÑONEZ [facility] [id number] [facility] 2018-05-21 13:11:00 2018-05-25 15:55:00 Discharged Inpatient 1 JASMINA KOHLI [facility] [id number] [facility] 2018-01-16 16:11:00 2018-01-16 21:06:00 [facility] [id number] [facility] 2017-08-13 14:25:00 2017-08-15 20:05:00 Discharged Inpatient (obs) 1 JASMINA KOHLI [facility] [id number] [facility] 2017-07-03 00:00:00 2017-07-03 00:00:00 Chelsi Ruano PA: [id number], [address] [address], Ph. [facility] [place], [place] [id number] [facility] 2017-03-28 00:00:00 2017-03-28 00:00:00 Silvano Raya MD: [id number], [address] [address], Ph. [facility] [place], [place] [id number] [facility] 2017-01-19 00:00:00 2017-01-19 00:00:00 JACIEL ParikhP: [address], [address] [address], Ph. [facility] [place], [place] [id number] [facility] leandro 2016-12-06 00:00:00 2016-12-06 00:00:00 PABLITO Ramirez : [id number], [address] [address], Ph. [facility] [id number] [facility] 2016-10-18 00:00:00 2016-10-18 00:00:00 Silvano Raya MD: [id number], [address] [address], Ph. [facility] [address] [id number] [facility] leandro 2016-09-21 00:00:00 2016-09-21 00:00:00 JACIEL ParikhP: [address], [address] [address], Ph. [facility] - [facility] [id number] [facility] Prac leandro 2016-08-08 00:00:00 2016-08-08 00:00:00 Silvano Raya MD: [id number], [address] [address], Ph. [facility] [place] [facility] - [facility] [id number] [facility] Prac leandro 2016-07-20 00:00:00 2016-07-20 00:00:00 Silvano Raya MD: [id number], [address] [address], Ph. [facility] [id number] [facility] Prac leandro 2016-07-05 00:00:00 2016-07-05 00:00:00 JACIEL ParikhP: [address], [address] [address], Ph. P [facility] [id number] [facility] Pr[facility] leandro 2016-07-01 00:00:00 2016-07-01 00:00:00 Filippo Garcia: [address], [address], [place] [address], Ph. [facility] - Care Management [id number] [facility] 2016-05-25 00:00:00 2016-05-25 00:00:00 Filippo Garcia: [address], [address], [place] [address], Ph. [facility] - Care Management [id number] [facility] 2016-05-20 00:00:00 2016-05-20 00:00:00 Emma Raya: [address] [facility] [address] [facility], [place] [address], Ph. [facility] - [facility] [id number] [facility] 2016-05-19 00:00:00 2016-05-19 00:00:00 Silvano Raya MD: [id number], [address] [address], Ph. [facility] [place], [place] [id number] [facility] Prac leandro 2016-05-09 00:00:00 2016-05-09 00:00:00 Silvano Raya MD: [address], [address] [address], Ph. [facility] [place], [place] [id number] [facility] Prac leandro 2016-05-06 00:00:00 2016-05-06 00:00:00 Emma Raya: [address] [facility], [place] [address], Ph. [facility] - Care Management [id number] [facility] Pract ice 2016-04-21 00:00:00 2016-04-21 00:00:00 PABLITO Ramirez : [address] [facility] [address] [facility] [address], Ph. [facility] [place], [place] [id number] [facility] Practice 2016-03-11 00:00:00 2016-03-11 00:00:00 PABLITO Ramirez : [address], [address], [place] [address], Ph. [facility] [place], [place] [id number] [facility] 2016-03-01 00:00:00 2016-03-01 00:00:00 Silvano Raya MD: [address], [address], [place] [address], Ph. [facility] [place], [place] [id number] [facility] leandro 2016-02-26 00:00:00 2016-02-26 00:00:00 Emma Raya: [address] [facility] [address], [place] [address], Ph. [facility] - Care Management [id number] [facility] 2016-02-19 00:00:00 2016-02-19 00:00:00 Peter stephen MD: [id number], [place] [address], Ph. [facility] [place], [place] [id number] [facility] 2016-02-12 00:00:00 2016-02-12 00:00:00 Reina Gordon, DATA ENTRY TECHNICIAN: [address], [address], [place] [address], Ph. [facility] [place], [place] [id number] [facility] Test Description Test Time Test Comments Results Result Comments Source CHEST SINGLE (PORTABLE) 2019-08-07 11:13:00 [facility] [address] [address] Patient Name: LINO HUNT MR #: [id number] : 1945 Age/Sex: 73/F Req #: [id number] Adm Physician: Ordered by: RAE QUIÑONEZ MD Report #: [id number] Location: Room/Bed: Procedure: [id number] DX/CHEST SINGLE (PORTABLE) Exam Date: 08/07/19 Exam Time: 1050 REPORT STATUS: Signed EXAMINATION: CHEST SINGLE (PORTABLE) INDICATION: Abdominal pain COMPARISON: None FINDINGS: LINES/TUBES:None LUNGS:The lungs are well-inflated. No focal consolidation or pulmonary edema. PLEURA:No pleural effusion or pneumotho rax. MEDIASTINUM:The cardiomediastinal silhouette appears normal in size and shape. BONES/SOFT TISSUES:No acute osseous injury. ABDOMEN:No free air under the diaphragm. IMPRESSION: No focal pneumonia or pulmonary edema. Signed by: Lorraine Coulter MD on 08/07/2019 11:13 AM Dictated By: LORRAINE COULTER MD 1113 Transcribed By: EMMA on 08/07/19 1113 COPY TO: RAE QUIÑONEZ MD Creatine Kinase MB 2018-09-03 15:20:00 Test Item Creatine Kinase MB (test code = 64328-0) 0.50 0-5.0 [facility] [id number] 15:20:00* Test Item Value Reference Range Interpretation Comments Troponin I (test code = FGM5486) < 0.001 0-0.300 [facility] CenterCreatine Qobzbi3509-75-52 15:13:00* Test Item Value Reference Range Interpretation Comments Creatine Kinase (test code = 2157-6) 64 29-168 [facility] Mxyti1771-38-29 06:39:00* Test Item Value Reference Range Interpretation Comments Sodium Level (test code = 2951-2) 139 136-145 [facility] CenterPotassium Jfxzf2041-96-78 06:39:00* Test Item Value Reference Range Interpretation Comments Potassium Level (test code = 2823-3) 3.7 3.5-5.1 [facility] CenterChloride Jlega9885-23-16 06:39:00* Test Item Value Reference Range Interpretation Comments Chloride Level (test code = 2075-0) 107 98-107 [facility] CenterCarbon Dioxide Thjrz6409-19-43 06:39:00* Test Item Value Reference Range Interpretation Comments Carbon Dioxide Level (test code = 2028-9) 27 22-29 [facility] CenterAnion Wyr7463-15-44 06:39:00* Test Item Value Reference Range Interpretation Comments Anion Gap (test code = 32295-1) 8.7 8-16 [facility] CenterBlood Urea Yezewpba1118-02-56 06:39:00* Test Item Value Reference Range Interpretation Comments Blood Urea Nitrogen (test code = 3094-0) 12 7-26 [facility] CenterCreatinine2019-06-10 06:39:00* Test Item Value Reference Range Interpretation Comments Creatinine (test code = 2160-0) 0.82 0.57-1.11 [facility] CenterBUN/Creatinine Zrcgo7404-54-78 06:39:00* Test Item Value Reference Range Interpretation Comments BUN/Creatinine Ratio (test code = 3097-3) 15 6-25 [facility] CenterEstimat Glomerular Filtration Rate 2018-09-03 06:39:00* Test Item Value Reference Range Interpretation Comments Estimat Glomerular Filtration Rate (test code = 328484160) > 60 >60 Ranges were taken from the National Kidney Disease Education Program and the [facility] [employer] literature.Reference ranges:60 or greater: Gfeyoj79-76 ( for 3 consecutive months): Chronic kidney disease 15 or less: Kidney failureOdessa Regional Medical CenterGlucose Hlmgk0188-52-23 06:39:00* Test Item Value Reference Range Interpretation Comments Glucose Level (test code = MKY9029) 78 74-118 [facility] CenterCalcium Morzb3331-36-00 06:39:00* Test Item Value Reference Range Interpretation Comments Calcium Level (test code = 72916-4) 9.3 8.4-10.2 [facility] CenterTotal Osetlojcc2807-42-66 06:39:00* Test Item Value Reference Range Interpretation Comments Total Bilirubin (test code = 1975-2) 0.6 0.2-1.2 [facility] CenterAspartate Amino Transf (AST/SGOT) 2018-09-03 06:39:00* Test Item Value Reference Range Interpretation Comments Aspartate Amino Transf (AST/SGOT) (test code = Aspartate Amino Transf (AST/SGOT)) 23 5-34 [facility] CenterAlanine Aminotransferase (ALT/SGPT) 2018-09-03 06:39:00* Test Item Value Reference Range Interpretation Comments Alanine Aminotransferase (ALT/SGPT) (test code = 1742-6) 20 0-55 [facility] CenterTotal Thbdrby1695-23-80 06:39:00* Test Item Value Reference Range Interpretation Comments Total Protein (test code = 2885-2) 5.8 6.5-8.1 [facility] CenterAlbumin2019-06-10 06:39:00* Test Item Value Reference Range Interpretation Comments Albumin (test code = 1751-7) 3.4 3.5-5.0 [facility] CenterGlobulin2019-06-10 06:39:00* Test Item Value Reference Range Interpretation Comments Globulin (test code = 11291-3) 2.4 2.3-3.5 [facility] CenterAlbumin/Globulin Pbhxm6414-13-17 06:39:00 * Test Item Value Reference Range Interpretation Comments Albumin/Globulin Ratio (test code = 1759-0) 1.4 0.8-2.0 [facility] CenterAlkaline Taibjcmurfa9871-53-32 06:39:00* Test Item Value Reference Range Interpretation Comments Alkaline Phosphatase (test code = 6768-6) 52 40-150 [facility] CenterTriglycerides Eylrq6236-56-80 06:39:00* Test Item Value Reference Range Interpretation Comments Triglycerides Level (test code = 2571-8) 36 0-149 [facility] CenterCholesterol Mfrov2782-07-92 06:39:00* Test Item Value Reference Range Interpretation Comments Cholesterol Level (test code = 2093-3) 132 0-199 Less than 200 mg/dL Low Xxwu255 - 239 mg/dL Borderline Pcmr360 m g/dl and greater High Risk [facility] CenterLDL Eyllbddeesp3316-14-37 06:39:00* Test Item Value Reference Range Interpretation Comments LDL Cholesterol (test code = 2089-1) 70 60-130 [facility] CenterHDL Jnnkbabtnwe1212-21-26 06:39:00* Test Item Value Reference Range Interpretation Comments HDL Cholesterol (test code = 2085-9) 55 40-60 [facility] CenterCholesterol/HDL Knlzt0351-15-04 06:39:00 * Test Item Value Reference Range Interpretation Comments Cholesterol/HDL Ratio (test code = 9830-1) 2.4 3.0-3.6 [facility] CenterWhite Blood Wmiaj6017-04-99 06:10:00* Test Item Value Reference Range Interpretation Comments White Blood Count (test code = 6690-2) 3.57 4.8-10.8 [facility] CenterRed Blood Vhsmr9066-39-92 06:10:00* Test Item Value Reference Range Interpretation Comments Red Blood Count (test code = 789-8) 3.85 3.6-5.1 [facility] CenterHemoglobin2019-06-10 06:10:00* Test Item Value Reference Range Interpretation Comments Hemoglobin (test code = 07634-0) 9.7 12.0-16.0 [facility] CenterHematocrit2019-06-10 06:10:00* Test Item Value Reference Range Interpretation Comments Hematocrit (test code = 4544-3) 30.6 34.2-44.1 [facility] CenterMean Corpuscular Ungynw8535-17-15 06:10:00* Test Item Value Reference Range Interpretation Comments Mean Corpuscular Volume (test code = 787-2) 79.5 81-99 [facility] CenterMean Corpuscular Udxhjffeey0883-27-54 06:10:00* Test Item Value Reference Range Interpretation Comments Mean Corpuscular Hemoglobin (test code = 785-6) 25.2 28-32 [facility] CenterMean Corpuscular Hemoglobin Concent 2018-09-03 06:10:00* Test Item Value Reference Range Interpretation Comments Mean Corpuscular Hemoglobin Concent (test code = 786-4) 31.7 31-35 [facility] CenterRed Cell Distribution Rgduc9913-17-93 06:10:00* Test Item Value Reference Range Interpretation Comments Red Cell Distribution Width (test code = 19874-1) 15.2 11.7 -14.4 [facility] CenterPlatelet Glhpx0831-22-60 06:10:00* Test Item Value Reference Range Interpretation Comments Platelet Count (test code = 777-3) 128 140-360 [facility] CenterNeutrophils (%) (Auto)2018-09-03 06:10:00 * Test Item Value Reference Range Interpretation Comments Neutrophils (%) (Auto) (test code = 60576-9) 40.8 38.7-80.0 [facility] CenterLymphocytes (%) (Auto)2018-09-03 06:10:00 * Test Item Value Reference Range Interpretation Comments Lymphocytes (%) (Auto) (test code = 736-9) 40.9 18.0-39.1 [facility] CenterMonocytes (%) (Auto)2018-09-03 06:10:00* Test Item Value Reference Range Interpretation Comments Monocytes (%) (Auto) (test code = 5905-5) 17.4 4.4-11.3 [facility] CenterEosinophils (%) (Auto)2018-09-03 06:10:00 * Test Item Value Reference Range Interpretation Comments Eosinophils (%) (Auto) (test code = 713-8) 0.3 0.0-6.0 [facility] CenterBasophils (%) (Auto)2018-09-03 06:10:00* Test Item Value Reference Range Interpretation Comments Basophils (%) (Auto) (test code = 706-2) 0.3 0.0-1.0 [facility] CenterIM GRANULOCYTES %2018-09-03 06:10:00* Test Item Value Reference Range Interpretation Comments IM GRANULOCYTES % (test code = IM GRANULOCYTES %) 0.3 0.0- 1.0 [facility] CenterNeutrophils # (Auto)2018-09-03 06:10:00* Test Item Value Reference Range Interpretation Comments Neutrophils # (Auto) (test code = 751-8) 1.5 2.1-6.9 [facility] CenterLymphocytes # (Auto)2018-09-03 06:10:00* Test Item Value Reference Range Interpretation Comments Lymphocytes # (Auto) (test code = 65391-4) 1.5 1.0-3.2 [facility] CenterMonocytes # (Auto)2018-09-03 06:10:00* Test Item Value Reference Range Interpretation Comments Monocytes # (Auto) (test code = 742-7) 0.6 0.2-0.8 [facility] CenterEosinophils # (Auto)2018-09-03 06:10:00* Test Item Value Reference Range Interpretation Comments Eosinophils # (Auto) (test code = 711-2) 0.0 0.0-0.4 [facility] CenterBasophils # (Auto)2018-09-03 06:10:00* Test Item Value Reference Range Interpretation Comments Basophils # (Auto) (test code = 704-7) 0.0 0.0-0.1 [facility] CenterAbsolute Immature Granulocyte (auto 2018-09-03 06:10:00* Test Item Value Reference Range Interpretation Comments Absolute Immature Granulocyte (auto (laurie t code = Absolute Immature Granulocyte (auto) 0.01 0-0.1 [facility] CenterB-Type Natriuretic Cacrnrv2489-63-17 23:06:00* Test Item Value Reference Range Interpretation Comments B-Type Natriuretic Peptide (test code = 14640-5) 40.8 0-100 [facility] CenterCHEST SINGLE (PORTABLE)2018-09-02 23:03:00 [facility] [address] [address] Patient Name: LINO HUNT MR #: [id number] : 1945 Age/Sex: 72/F Req #: [id number] Adm Physician: Ordered by: RAE QUIÑONEZ MD Report #: [id number] Location: ER Room/Bed: Procedure: DX/CHES T SINGLE (PORTABLE) Exam Date: 09/02/18 Exam Time: 2 125 REPORT STATUS: Signed EXAMIN ATION: CHEST SINGLE (PORTABLE) INDICATION: CHEST PAIN 2018 608 2124 Y COMPARISON: 01/16/2018 FINDINGS: AP view TUBES [...] ed By: SILVIO ANDRADE MD on 09/02/18 230 Transcribed By: EMMA on 09/02/18 23 04 COPY TO: RAE QUIÑONEZ MD Prothrombin Hojr2310-17-40 22:42:00 * Test Item Value Reference Range Interpretation Comments Prothrombin Time (test code = 5902-2) 14.4 11.9-14.5 [facility] CenterProthromb Time International Ratio 2018-09-02 22:42:00* Test Item Value Reference Range Interpretation Comments Prothromb Time International Ratio (test code = 6301-6) 1.07 Oral Anticoagulant Therapy INR Values:1. Low Intensity Therapy 1.5 - 2.02 . Moderate Intensity Therapy 2.0 - 3.03. High Intensity Therapy(1) 2.5 - 3. 54. High Intensity Therapy(2) 3.0 - 4.05. Panic Value INR > 5.0 [facility] CenterActivated Partial Thromboplast Time 2018-09-02 22:42:00* Test Item Value Reference Range Interpretation Comments Activated Partial Thromboplast Time (test code = 54027-5) 32.6 23.8-35.5 [facility] CenterUrine XKM8595-18-26 22:24:00* Test Item Value Reference Range Interpretation Comments Urine WBC (test code = 5821-4) 6-10 0-5 [facility] CenterUrine SMA6425-88-15 22:24:00* Test Item Value Reference Range Interpretation Comments Urine RBC (test code = 35134-8) 0-5 0-5 [facility] CenterUrine Zmptjlrz2300-87-47 22:24:00* Test Item Value Reference Range Interpretation Comments Urine Bacteria (test code = 55063-1) FEW NONE [facility] CenterUrine Epithelial Wqnbh7649-07-13 22:24:00 * Test Item Value Reference Range Interpretation Comments Urine Epithelial Cells (test code = 37985-8) RARE NONE [facility] CenterUrine Hyaline Miyqm6873-67-49 22:24:00* Test Item Value Reference Range Interpretation Comments Urine Hyaline Casts (test code = 91858-5) 2-5 0-1 [facility] CenterUrine Efmjt4073-04-45 22:24:00* Test Item Value Reference Range Interpretation Comments Urine Mucus (test code = 8247-9) MODERATE RARE [facility] CenterUrine Nkmyj6464-92-01 22:18:00* Test Item Value Reference Range Interpretation Comments Urine Color (test code = 5778-6) YELLOW YELLOW [facility] CenterUrine Sdcwbtm7581-52-76 22:18:00* Test Item Value Reference Range Interpretation Comments Urine Clarity (test code = 43371-1) SL CLOUDY CLEAR [facility] CenterUrine Specific Tvlbgij5733-18-82 22:18:00 * Test Item Value Reference Range Interpretation Comments Urine Specific [place] (test code = 5811-5) 1.025 1.010-1.02 5 [facility] CenterUrine yA9365-08-85 22:18:00* Test Item Value Reference Range Interpretation Comments Urine pH (test code = 54143-5) 5.5 5-7 [facility] CenterU[facility] Leukocyte Rvtfprcg8963-42-85 22:18:00* Test Item Value Reference Range Interpretation Comments Urine Leukocyte Esterase (test code = 00059-6) TRACE NEGATIV E [facility] Mmalbyq1705-58-39 22:18:00* Test Item Value Reference Range Interpretation Comments Urine Nitrite (test code = 08586-9) NEGATIVE NEGATIVE [facility] Disubkd5935-94-29 22:18:00* Test Item Value Reference Range Interpretation Comments Urine Protein (test code = 92292-5) 1+ NEGATIVE [facility] Glucose (UA)2018-09-02 22:18:00* Test Item Value Reference Range Interpretation Comments Urine Glucose (UA) (test code = 46320-8) NEGATIVE NEGATIVE [facility] CenterUrine Rvlvxll8098-36-59 22:18:00* Test Item Value Reference Range Interpretation Comments Urine Ketones (test code = 15299-4) TRACE NEGATIVE [facility] Uejuqsbahqry2013-86-96 22:18:00* Test Item Value Reference Range Interpretation Comments Urine Urobilinogen (test code = 06185-1) 0.2 0.2-1 [facility] CenterU[facility] Wuizvhyic7763-76-84 22:18:00* Test Item Value Reference Range Interpretation Comments Urine Bilirubin (test code = 1977-8) NEGATIVE NEGATIVE [facility] Jdzju5691-93-60 22:18:00* Test Item Value Reference Range Interpretation Comments Urine Blood (test code = 94891-5) TRACE NEGATIVE [facility] CenterABDOMEN-1VIEW (KUB)2018-05-24 07:45:[address] [address] Patient Name: LINO HUNT MR #: [id number] : 1945 Age/Sex: 72/F Req #: [id number] Adm Physician: JASMINA KOHLI MD Ordered by: MARCI POWER MD Report #: [id number] Location: MED/SURG[address] [place] [address]/Bed: [facility] Procedure: [id number] DX/ABDOME N-1VIEW (REHOBOTH MCKINLEY [facility]) Exam Date: 05/24/18 Exam Time: 0610 REPORT [...] 7:51 AM Dictated By: CHIQUITA LOPEZ MD 0 Transcribed By: EMMA on 05/24/18750 COPY TO: MARCI POWER MD ABDOMEN-1VIEW ([facility])2018-05-21 11:01:00 [place] [address] Patient Name: LINO HUNT MR #: [id number] : 1945 Age/Sex: 72/F Req #: [id number] [facility] Physician: JASMINA KOHLI MD Ordered by: JASMINA KOHLI MD Report #: [id number] Location: [facility] Room/Bed: [place] [address] Procedure: [id number] DX/ABDOMEN -1VIEW ([facility]) Exam Date: Exam Time: [...] MARTIN DO 110 Transcribed By: MARYAM on 05/21/181100 COPY TO: JASMINA KOHLI MD Lactic Acid Level 2018-05-20 06:28:00* Test Item Value Reference Range Interpretation Comments Lactic Acid Level (test code = Lactic Acid Level) 6.7 4.5- 19.8 [facility] [id number] 22:34:00 [facility] [address] [place] [address] Patient Name: LINO HUNT MR #: [id number] : 1945 Age/Sex: 72/F Req #: [id number] Adm Physician: Ordered by: EMMANEUL CASTILLO MD Report #: [id number] Location: ER [facility]/Bed: Procedure: [id number] CT/CT AB DOMEN/PELVIS W Exam Date: 05/19/18 Exam Time: 2199 REPORT STATUS: Signed EXAM: CT Ab domen and Pelvis WITH contrast INDICATION: look for appy, diverticu litis,sbo, panreatitis, hernia, rup [id number] Y COMPARISON: CT d ated 01/16/2018 TECHNIQUE: Abdomen and pelvis were scanned utilizing a multide Pelican Renewablestor helical scanner from the lung base to [...] 05/19/182250 COPY TO: EMMANUEL CASTILLO MD Amylase Rqmxg9749-15-03 21:38:00* Test Item Value Reference Range Interpretation Comments Amylase Level (test code = 1798-8) 56 25-125 [facility] 21:38:00* Test Item Value Reference Range Interpretation Comments Lipase (test code = 3040-3) 15 8-78 [facility] Mvprpot2900-96-08 17:35:00* Test Item Value Reference Range Interpretation Comments Blood Culture (test code = 53776426) NO GROWTH AFTER 5 DAYS, FINAL REPORT [facility] [id number] 19:31:00 [facility] [address] [place] [address] Patient Name: LINO HUNT MR #: [id number] : 1945 Age/Sex: 72/F Req #: [id number] Adm Physician: Ordered by: VIRY [employer] CLEANER Report #: [id number] Location: Room/Bed: Procedure: [id number] CT/CT ABDOMEN/PELVIS W Exam Date: 01/16/18 Exam [...] MD, MD 41 COPY TO: CAROLA [employer] CHEST 2 [id number] 19:16:00 [place] [address] Patient Name: LINO HUNT MR #: [id number] : 1945 Age/Sex: 72/F Req #: [id number] Adm Physician: Ordered by: VIRY [employer]ER Report #: [id number] Location: ER Room/Bed: Procedure: [id number] DX/CAROLA EST 2 VIEWS Exam Date: 01/16/18 [...] EMMA on 1930 COPY TO: VIRY [employer]ER Influenza Virus Types A,B Nnpbfkl0013-27-25 18:01:00* Test Item Value Reference Range Interpretation Comments Influenza Virus Types A,B Antigen (test code = 10147-7) NEGATIVE NEGATIVE [facility] - Serum or Plasma 2017-01-20 [...] HDL cholesterol) 98 mg/dL (radha c) <130 [facility] - Serum or Plasma 2017-01-20 01:06:00* Test Item Value Reference Range Interpretation Comments glucose (test code = glucose) 101 mg/dL 65-99 H urea nitrogen (BUN) (test code = urea nitrogen (BUN)) 15 mg/dL 7-25 creatinine (test code = creatinine) 1.06 mg/dL 0.60-0.93 H eGFR non-afr. japanese (test code = eGFR non-afr. japanese) 52 mL/min/1.73m2 > or = 60 L [...] (test code = ALT) 16 U/L 6-29 [facility] Auto Differential panel - [id number] 01:06:00 * Test Item Value Reference Range [...] code = absolute neutrophils) 1869 rodney ls/uL 0876-4404 absolute lymphocytes (test code = absolute lymphocytes) [...] basophils (test code = basophils) 0.6 % [facility] in Urine by Sktgjxd0718-14-14 17:38:00Culture, Urine, [facility]ineVill[facility] 1996 panel - Serum or Xuthwk0985-03-86 00:00:00* Test Item Value Reference Range Interpretation [...] or Plasma by calculation (test code = 60747-3) 74 mg/dL (calc) <130 Cholesterol.total/Cholesterol.in HDL [Ma ss ratio] in Serum or Plasma (test code = 9830-1) 2.2 (calc) < or = 5.0 Cholesterol non HDL [Mass/volume] in Serum or Plasma ( test code = 98866-4) 89 mg/dL (calc) [facility] 1999 panel - Serum or Plasma 2016-05-20 00:00:00* [...] by Creatinine-based formula (MDRD) (test code = 62362-5) 58 mL/min/1.73m2 > or = 60 L Glomerular filtration rate/1.73 sq M pre dicted among blacks by Creatinine-based formula (MDRD) (test code = 17130-3) 68 mL/min/1.73m2 > or = 60 Urea [...] in Serum or Plasma (test code = 81820- 6) 9.4 mg/dL 8.6-10.4 Protein [Mass/volume] in Serum or Plasma (test code = 2885-2) 7. 1 g/dL 6.1-8.1 Albumin [Mass/volume] in Serum or Plasma (test code = 1751-7) 4. 1 g/dL 3.6-5.1 Globulin [Mass/volume] in Serum by calculation (test c ode = 15689-8) 3.0 g/dL (calc) 1.9-3.7 Albumin/Globulin [Mass Ratio] [...] (test code = 1742-6) 8 U/L 6-29 [facility] W Auto Differential panel - Rluol5025-08-42 00:00:00 * Test Item Value Reference Range [...] mean volume [Entitic volume] in Blood by ChilangoSilviaGail (test code = 776-5) 10.1 fL 7.5-12.5 Neutrophils [#/volume] in Blood by Automated count (te st code = 751-8) 1917 cells/uL 4358-2615 Lymphocytes [#/volume] in Blood by Automated count [...] (test c ode = 706-2) 0.0 % [facility] (T4) [Mass/volume] in Serum or [id number] 00:00:00* Test Item Value Reference Range Interpretation Comments Thyroxine (T4) [Mass/volume] in Serum or Plasma (test code = 3026-2) 8.2 mcg/dL 4.5-12.0 [facility] [Units/volume] in Serum or Ogkoxh7483-45-22 00:00:00* Test Item Value Reference Range Interpretation Comments Thyrotropin [Units/volume] in Serum or Plasma (test code = 3 016-3) 1.12 mIU/L 0.40-4.50 [facility] [place] [address] Patient Name: LINO HUNT MR #: [id number] : 1945 Age/Sex: 71/F Req #: [id number] Adm Physician: JASMINA KOHLI MD Ordered by: JASMINA KOHLI MD Report #: [id number] Location: [facility] Room/Bed: [place] [address] Procedure: [id number] CT/CT ABDOME N/PELVIS W Exam Date: 08/14/17 [...] ically Signed By: SILVIO ANDRADE MD on 08/14/17 1560 Transcribed By: EMMA on 08/14/17 0541 COPY TO: JASMINA KOHLI MD ABDOMEN ACUTE SERIES W/PA CXR [place] [address] Patient Name: LINO HUNT MR #: [id number] : 1945 Age/Sex: 71/F Req #: [id number] Adm Physician: Ordered by: AYAN VIDAL MD Report #: [id number] Location: ER Room/Bed: Procedure: [id number] DX/ABDOMEN ACUTE SERIES W/PA CXR Exam Date: 08/13/17 Exam Time: [address] ATUS: Signed Acute Abdominal Series CPT CODE: 24303 INDICATION: Abd ominal pain, nausea, diarrhea. COMPARISON: [...] PM Dictated By: ELEN BURK MD 08 COPY TO: AYAN VIDAL MD
--- NOTE | 2019-08-07 12:56 | Diagnostic Imaging Report ---
EXAM: CT Abdomen and Pelvis WITH intravenous contrast INDICATION: Abdominal pain COMPARISON: CT abdomen pelvis of 01/16/2018 TECHNIQUE: Abdomen and pelvis were scanned utilizing a multidetector helical scanner from the lung base to the pubic symphysis after administration of IV contrast. Coronal and sagittal reformations were obtained. Routine protocol was performed. Scan was performed during portal venous phase. IV CONTRAST: 100mL of Isovue 370 ORAL CONTRAST: Water RADIATION DOSE: Total DLP: 686 mGy*cm Dose modulation, iterative reconstruction, and/or weight based adjustment of the mA/kV was utilized to reduce the radiation dose to as low as reasonably achievable. FINDINGS: LOWER THORAX: Minimal bibasilar dependent subsegmental atelectasis. HEPATOBILIARY: No focal liver lesion. No biliary ductal dilation. Status post cholecystectomy. SPLEEN: No splenomegaly. PANCREAS: No focal masses or ductal dilatation. ADRENALS: Right adrenal nodule measures 2.7 x 2.3 cm and is indeterminate on single phase imaging but statistically most likely represents an adrenal adenoma. KIDNEYS/URETERS: Bilateral subcentimeter renal cysts. No hydronephrosis or renal calculi. PELVIC ORGANS/BLADDER: Unremarkable. PERITONEUM / RETROPERITONEUM: No free air or fluid. LYMPH NODES: No lymphadenopathy. VESSELS: Scattered atherosclerotic calcifications of the nonaneurysmal abdominal aorta and major branches. GI TRACT: No abnormal bowel thickening. No bowel obstruction. BONES AND SOFT TISSUES: No acute osseous injury. No suspicious lytic or blastic lesions. Mild diffuse osteopenia. Degenerative changes of the visualized spine. Grade 1 retrolisthesis at L1-2 and L2-3. Grade 1 anterolisthesis at L4-5. IMPRESSION: No acute findings in the abdomen or pelvis. 2.7 cm right adrenal nodule has been unchanged dating back to 2018 and most likely represents a benign adenoma. No further follow-up imaging is necessary. Signed by: Lore Durand MD on 08/07/2019 12:46 PM
[2019-08-07] MEDS ORDERED: PANTOPRAZOLE 40 MG 10ML VIAL IV NR (14:00)
[2019-08-07] MEDS: MORPHINE SULFATE 2 MG/ML SYR 1ML IV PRN ×2 (14:12→18:30)
[2019-08-07] MEDS ORDERED: HYDRALAZINE HCL 20 MG/ML VIAL IV PRN (14:15)
--- NOTE | 2019-08-07 18:00 | NUR ---
received report from MINOO Parra in ER. obtaining IV access and patient will be transferred via stretcher to room 289
--- NOTE | 2019-08-07 18:30 | NUR ---
received patient from ER via wheelchair. pt is alert, no s/s of distress. pt oriented to room and call light within reach, instructed pt to call RN for help.
--- NOTE | 2019-08-07 19:30 | NUR ---
RECEIVED REPORT FROM PREVIOUS NURSE. CALL LIGHT WITHIN REACH. PATIENT IN BED.
[2019-08-07 20:00] VITALS: BP 137/57
[2019-08-07 20:56] VITALS: BP 137/57
--- NOTE | 2019-08-07 21:35 | History and Physical ---
PRIMARY CARE PHYSICIAN: Dimitry Raya MD CHIEF COMPLAINT: Abdominal pain. HISTORY OF PRESENT ILLNESS: The patient is a 73-year-old female with upper epigastric abdominal pain for 4 days. The patient states that she was here with similar pain about 1 year ago. She denies any sick contacts or recent travel. She had vomiting last night one time and states she had diarrhea this morning on 3 separate occasions. Abdominal pain rated at 8/10 on a scale of 0-10. She states it is worse with eating and she has associated symptom of generalized weakness. PAST MEDICAL HISTORY: Hypertension, anemia, gastroesophageal reflux disease, hyperlipidemia, insomnia, hard of hearing with bilateral hearing aids, constipation for which she takes Linzess. PAST SURGICAL HISTORY: Bilateral 1st and 5th digit toenail removal, bone spur repair, cholecystectomy, hysterectomy on 07/27/2015, she had a right knee replacement, bilateral cataract removal, left jaw repair, right breast lumpectomy, bilateral carpal tunnel repair. FAMILY HISTORY: Father at age 91 of old age. Mother had colon cancer. SOCIAL HISTORY: Denies any history of tobacco, alcohol, or illicit drug use. She lives with her son. She denies the use of a cane or walker. She still drives. ALLERGIES: INCLUDE PENICILLIN AND KIWI. HOME MEDICATIONS: Include aspirin 81 mg daily, Colace 100 mg daily, ferrous sulfate 324 mg daily, furosemide 40 mg daily, isosorbide mononitrate 30 mg daily, losartan potassium 100 mg daily, metoclopramide 5 mg twice a day, nifedipine 60 mg every morning, omeprazole 40 mg daily, potassium chloride 20 mEq daily, prednisolone 1 drop OP daily, Crestor 40 mg daily, trazodone 100 mg at bedtime, Zofran q. 4 hours sublingual as needed for nausea Linzess 145 mcg daily. REVIEW OF SYSTEMS: CONSTITUTIONAL: Denies any significant weight loss or weight gain. No fever or chills. EYES: She wears glasses. EARS, NOSE, AND THROAT: Hard of hearing. Denies sore throat. RESPIRATORY: Denies shortness of breath, cough, or phlegm. GENITOURINARY: Denies difficulty urinating. PSYCHIATRIC: Denies any history of depression, anxiety, or psychiatric illness. INTEGUMENTARY: Denies rash or lesions. CARDIOVASCULAR: Denies chest pain or palpitations. GASTROINTESTINAL: As per history of present illness. MUSCULOSKELETAL: Denies muscle or joint pain. NEUROLOGIC: Denies headache or dizziness. ENDOCRINE: Denies history of diabetes. HEMATOLOGIC: Denies any bleeding or bruising. OBJECTIVE: VITAL SIGNS: T-max and T current 100.3, heart rate 60, blood pressure 158/74, respirations 20, oxygen saturation 98% on room air. Height 5 feet 6 inches. Weight 150 pounds. BMI 24.2. MEDICATIONS: She is currently on normal saline with 20 mEq, potassium chloride infusing at 175 mL an hour into right EJ. She is on Rocephin IV, Protonix IV, p.r.n. IV hydralazine, p.r.n. morphine sulfate, p.r.n. Zofran. GENERAL: Supine, on a stretcher in the emergency room bay 11. No acute distress. LUNGS: Generally clear to auscultation. Respiratory pattern even and unlabored. HEENT: Edentulous. EOMI. NECK: Supple. Slightly larger on the left side of the face with a history of jaw surgery. CARDIOVASCULAR: Regular rate and rhythm. No murmur. Bradycardia. ABDOMEN: Bowel sounds positive, but hypoactive. Soft, mildly tender to gentle palpation. EXTREMITIES: No pitting edema. No clubbing, cyanosis, or signs of DVT. NEUROLOGIC: GCS 15. Nonfocal. DIAGNOSTIC STUDIES AND LABORATORY DATA: WBC 4.38, hemoglobin 10.1, hematocrit 32.2, platelets 118. PT 14.5, INR 1.06, PTT 35.4. Sodium 141, potassium 2.9, chloride 111, CO2 of 21, BUN 15, creatinine 0.98, GFR greater than 60, glucose 95, calcium 8.3, magnesium 2.0, total bilirubin 0.9, AST 19, ALT 10, alkaline phosphatase 59, creatine kinase 137, CK-MB 0.7, troponin I 0.026, B-type natriuretic peptide 264.8, total bilirubin 6.7, albumin 3.9, lipase 38. Urinalysis showed yellow cloudy urine with specific gravity greater than or equal to 1.030, protein 2+, trace ketones, trace blood, small amount of bilirubin, negative for leukocyte esterase, negative for nitrites, wbc's 6-10, few epithelial cells, rare urine bacteria. Micro; blood culture x2 and urine culture pending. Imaging; CT of the abdomen and pelvis showed no acute findings, 2.7 cm right adrenal nodule, unchanged dating back to 2018, most likely represents a benign adenoma. Chest x-ray shows no focal pneumonia or pulmonary edema. ASSESSMENT AND PLAN: 1. Abdominal pain, epigastric and upper. Pain control. Monitor for improvement. 2. Urinary tract infection, present on admission. Follow up on final urine culture and sensitivity results. Continue Rocephin. 3. Dehydration. Continue IV fluids. Creatinine 0.98, GFR greater than 60. Monitor. 4. Hypokalemia. Potassium level 2.9. The patient is getting both oral potassium and has 20 mEq in her current IV fluids. Follow up potassium in the morning. 5. Nausea and vomiting. Currently not vomiting. We will monitor this. Consult GI if no improvement. 6. Diarrhea. The patient is n.p.o. We will continue to monitor. If she is put on a diet, may try Questran. Consult GI if no improvement. 7. Controlled hypertension. Monitor on p.r.n. IV hydralazine. She is currently n.p.o., can resume home medications once tolerating oral better. 8. Gastroesophageal reflux disease/prophylaxis[place], [address]. Time spent 60 minutes. Dictated by Alexis Combs NP Alexis Nguyễn MD HWP/MODL /[id number]
[2019-08-07] MEDS ORDERED: VALACYCLOVIR500 MG PO (22:43)
[2019-08-08 02:15] LABS: CREATINE KINASE MB 1.3 ng/mL (0-5.0)
[2019-08-08 04:00] VITALS: BP 125/59
[2019-08-08 05:50] LABS: BASOPHILS % 0.6 % (0.0-1.0); EOSINOPHILS % 0.3 % (0.0-6.0); HEMATOCRIT 31.4 % (34.2-44.1); HEMOGLOBIN 9.5 g/dL (12.0-16.0); LYMPHOCYTES # (AUTO) 0.8 (1.0-3.2); LYMPHOCYTES % 22.7 % (18.0-39.1); MEAN CORPUSCULAR HEMOGLOBIN 24.7 pg (28-32); MEAN CORPUSCULAR HGB CONC 30.3 g/dL (31-35); MEAN CORPUSCULAR VOLUME 81.6 fL (81-99); MONOCYTES # (AUTO) 0.4 (0.2-0.8); MONOCYTES % 11.2 % (4.4-11.3); NEUTROPHILS # (AUTO) 2.2 (2.1-6.9); NEUTROPHILS % 65.2 % (38.7-80.0); PLATELET COUNT 99 x10e3/uL (140-360); RED BLOOD COUNT 3.85 x10e6/uL (3.6-5.1); RED CELL DISTRIBUTION WIDTH 15.1 % (11.7-14.4)
[2019-08-08 06:03] LABS: ALANINE AMINOTRANSFERASE 9 IU/L (0-55); ALBUMIN 3.3 g/dL (3.5-5.0); ALBUMIN/GLOBULIN RATIO 1.4 (0.8-2.0); ALKALINE PHOSPHATASE 50 IU/L (40-150); ANION GAP 9.6 mmol/L (8-16); CALCIUM 8.3 mg/dL (8.4-10.2); CARBON DIOXIDE 23 mmol/L (22-29); CHLORIDE 112 mmol/L (98-107); CREATININE, SERUM 0.87 mg/dL (0.57-1.11); EST GLOMERULAR FILTRATION RATE > 60 ML/MIN (60-); GLUCOSE 86 mg/dL (74-118); POTASSIUM 3.6 mmol/L (3.5-5.1); SODIUM 141 mmol/L (136-145)
[2019-08-08 06:19] LABS: CREATINE KINASE MB 1.6 ng/mL (0-5.0)
[2019-08-08 06:30] LABS: PHOSPHORUS 3.3 MG/DL (2.3-4.7)
[2019-08-08 06:39] LABS: BLOOD UREA NITROGEN 11 mg/dL (7-26); BUN/CREATININE RATIO 13 (6-25)
--- NOTE | 2019-08-08 07:00 | NUR ---
received bedside report. pt is sleeping in bed, no s/s of distress. call light within reach and bed safety in place
--- NOTE | 2019-08-08 07:18 | NUR ---
GAVE BEDSIDE SHIFT REPORT TO ONCOMING NURSE. CALL LIGHT WITHIN REACH. PATIENT IN BED.
[2019-08-08 08:14] VITALS: BP 144/68
[2019-08-08 08:36] VITALS: BP 144/68
[2019-08-08] MEDS ORDERED: PANTOPRAZOLE 40 MG 10ML VIAL IV SCH (09:00)
--- NOTE | 2019-08-08 11:05 | NUR ---
ASSESSMENT: Spiritual concern Check Weigher referred by RN. Pt reviewing values of mosque and family. Pt states she has attended the same mosque since 1962. Pt member of [facility]. Intervention: Provided hospitality and empathic listening. Provided information on how to reach ticket manager, if needed. Outcome: Pt expressed appreciation for visit. No need to follow at this time. TING VALDES Check Weigher Spiritual Care Department O: [phone]
[2019-08-08 11:53] VITALS: BP 166/74
--- NOTE | 2019-08-08 11:57 | NUR ---
BP was 166/74 gave PRN hydralazine as ordered. pt is resting in bed, no s/s of distress. pt has no complaints at this time
[2019-08-08 16:05] VITALS: BP 153/69
--- NOTE | 2019-08-08 19:27 | NUR ---
RECEIVED REPORT FROM PREVIOUS NURSE. CALL LIGHT WITHIN REACH. PATIENT IN BED.
[2019-08-08 20:00] VITALS: BP 157/61
[2019-08-08] MEDS ORDERED: ACETAMINOPHEN 325 MG TAB PO PRN (20:00)
--- NOTE | 2019-08-08 21:21 | Progress Note ---
DATE: 08/08/2019 SUBJECTIVE: The patient is lying supine in bed. Currently denies any abdominal pain, nausea, vomiting, or diarrhea. She states she has had some abdominal cramping today. Per the nurse, she is hungry, wants to eat more solid foods. The patient denies any blood in stool and denies eating any questionable foods such as out of date shrimp. She is requesting a subway sandwich. OBJECTIVE: VITAL SIGNS: Temperature 98.9, heart rate 50, blood pressure 144/68, respirations 20, oxygen saturation 98% on room air. GENERAL: No acute distress. LUNGS: Clear to auscultation. Respirations unlabored. HEENT: EOMI. Edentulous. NECK: Supple, slightly larger on the left side of the face with a history of jaw surgery. CARDIOVASCULAR: Regular rate and rhythm. No murmur. Bradycardia. ABDOMEN: Bowel sounds positive. Soft, mildly tender to gentle palpation. No guarding. EXTREMITIES: No pitting edema. No clubbing, cyanosis, or signs of DVT. NEUROLOGIC: GCS 15. Nonfocal. MEDICATIONS: Reviewed. LABORATORY DATA: WBC 3.31, hemoglobin 9.5, hematocrit 31.4, platelets 99. Sodium 141, potassium 3.6, chloride 112, CO2 of 23, BUN 11, creatinine 0.87, GFR greater than 60, glucose 86, calcium 8.3, phosphorus 3.3, magnesium 2.0, total bilirubin 0.7, AST 16, ALT 9, alkaline phosphatase 50. Creatine kinase 150, CK-MB 1.3, troponin I 0.026 at 1:40 a.m. in the morning. Follow up at 5:15 am in the morning. Creatine kinase 116, CK-MB 1.6, troponin I 0.035. Total protein 5.7, albumin 3.3. 08/06 coronavirus PCR still pending. No growth from blood cultures in the past 24 hours. Preliminary urine culture showed gram-negative bacillus. Awaiting final results greater than or equal to 100,000 CFU/mL. No new imaging studies. ASSESSMENT AND PLAN: 1. Acute abdominal pain, epigastric and upper pain control p.r.n. subjectively much improved. 2. Acute urinary tract infection, POA. Continue Rocephin. Follow up on final urine culture and sensitivity. Preliminary results show gram-negative bacillus with greater than or equal to 100,000 CFU/mL. 3. Dehydration. BUN, creatinine, and GFR; 11/0.87/greater than 60. All within normal limits. 4. Acute hypokalemia, improved. Potassium level 3.6 (2.9). Reassess in a.m. 5. Nausea and vomiting, improved. Monitor. 6. Acute diarrhea, improved. Denies diarrhea. Monitor. 7. Controlled hypertension. At home, she is on isosorbide mononitrate 30 mg extended release daily, losartan potassium 100 mg p.o. daily, Procardia XL 60 mg q.a.m. We will ask that these be resumed. 8. Thrombocytopenia. Platelet level 99,000. She is on Protonix, not on Pepcid. Reassess in a.m. 9. Anemia of chronic disease. The patient admits to chronic anemia. We will check fecal occult blood test and anemia workup. 10. Asymptomatic bradycardia. Monitor heart rate. 11. Gastroesophageal reflux disease/prophylaxis. Continue Protonix. Time spent 35 minutes. Billing code 13306. Dictated by Alexis Combs NP MD LANCE PolkP/MODL /[id number]
[2019-08-08] MEDS: TRAZODONE HCL 50 MG TAB PO SCH (22:15)
[2019-08-09] VITALS (8 sets, daily range): BP systolic 105–166; BP diastolic 49–64
[2019-08-09 06:46] LABS: FERRITIN 91.87 ng/mL (4.63-204.00)
--- NOTE | 2019-08-09 07:06 | NUR ---
RECEIVED BEDSIDE SHIFT REPORT FROM OFF GOING NURSE. PATIENT IS RESTING IN BED. NO ACUTE DISTRESS NOTED. CALL LIGHT WITHIN REACH. BED IN THE LOWEST POSITION.
--- NOTE | 2019-08-09 07:31 | NUR ---
GAVE BEDSIDE SHIFT REPORT TO ONCOMING NURSE. CALL LIGHT WITHIN REACH. PATIENT IN BED.
[2019-08-09] MEDS: LINACLOTIDE 145 MCG CAPSULE PO SCH (08:59)
[2019-08-09] MEDS ORDERED: FERROUS SULFATE 325 MG TAB PO SCH (09:00)
[2019-08-09] MEDS: NIFEDIPINE CR 30 MG TAB PO SCH (09:01)
[2019-08-09] MEDS: SIMVASTATIN 40 MG TAB PO SCH (09:01)
[2019-08-09] MEDS: METOCLOPRAMIDE HCL 10 MG TAB PO SCH ×2 (09:01→16:04)
[2019-08-09] MEDS: VALACYCLOVIR HCL 500 MG TAB PO SCH (09:01)
[2019-08-09] MEDS: POTASSIUM CHLORIDE 10MEQ EA PO SCH (09:02)
[2019-08-09] MEDS: PANTOPRAZOLE SOD 40 MG TABEC PO SCH (09:02)
[2019-08-09] MEDS: LOSARTAN POTASSIUM 100 MG TAB PO SCH (09:02)
[2019-08-09] MEDS: ASPIRIN 81 MG CHEW TAB PO SCH (09:02)
[2019-08-09] MEDS: DOCUSATE SODIUM 100 MG CAP PO SCH (09:02)
[2019-08-09] MEDS: ISOSORBIDE MONONITRATE 30 MG TAB CR PO SCH (09:02)
[2019-08-09] MEDS ORDERED: SODIUM CHLORIDE 0.9% 250ML 250 ML ONE (14:25)
[2019-08-09] MEDS: CEFTRIAXONE SOD 1 GM/NS 50 ML 50 ML IV SCH (14:31)
--- NOTE | 2019-08-09 19:13 | NUR ---
BEDSIDE SHIFT REPORT GIVEN TO ONCOMING NURSE. PATIENT IS RESTING IN BED. NO ACUTE DISTRESS NOTED. CALL LIGHT WITHIN REACH. BED IN THE LOWEST POSITION.
[2019-08-09] MEDS: TRAZODONE HCL 50 MG TAB PO SCH (21:00)
[2019-08-10] VITALS: BP 107/58
--- NOTE | 2019-08-10 02:06 | Progress Note ---
DATE: 08/09/2019 SUBJECTIVE: The patient is lying supine in bed, awake, alert. Reports that she is doing much better today. Able to eat solid foods. Denies abdominal cramping, abdominal pain, nausea, vomiting, or diarrhea. MEDICATIONS: Reviewed. OBJECTIVE: VITAL SIGNS: Temperature 99.1, heart rate 61, blood pressure 114/53, respirations 18, and oxygen saturation 100% on room air. GENERAL: In no acute distress. LUNGS: Clear to auscultation. Respirations unlabored. HEENT: EOMI. Edentulous. NECK: Supple. Left side of the face slightly larger than the right side with a history of jaw surgery. CARDIOVASCULAR: Regular rate and rhythm. No murmur. ABDOMEN: Soft with good bowel sounds. Mildly tender to gentle palpation. No guarding. EXTREMITIES: Without pitting edema. No clubbing, cyanosis, or signs of DVT. NEUROLOGIC: GCS 15. Nonfocal. LABORATORY DATA: Iron 24, TIBC 211, percent saturation 11, transferrin 151, ferritin 91.87, vitamin B12 286, folate pending. IMAGING STUDIES: No new imaging studies. ASSESSMENT AND PLAN: 1. Acute abdominal pain at the epigastric and upper areas, subjectively much improved. Pain control p.r.n. 2. Escherichia coli and Proteus mirabilis, acute urinary tract infection, POA. Continue Rocephin as both organisms are sensitive. Renal function has been within normal limits, tolerating liquids well. We will hold off on any IV fluids. 3. Acute dehydration. BUN 11, creatinine 0.87, estimated GFR greater than 60. 4. Acute hypokalemia, improved. Reassess potassium in a.m. 5. Nausea and vomiting, resolved. Monitor. 6. Acute diarrhea, resolved. Monitor. 7. Controlled hypertension. Continue isosorbide mononitrate, Losartan, potassium, and Procardia XL. 8. Thrombocytopenia. Monitor. 9. Anemia of chronic disease with iron deficiency. Fecal occult blood test has not been collected as of yet. We will increase ferrous sulfate to t.i.d. 10. Asymptomatic bradycardia. Monitor heart rate. 11. Gastroesophageal reflux disease/prophylaxis. Continue Protonix. Time spent 35 minutes. Billing code 30308. Dictated by Alexis Combs, [employer]ICER Alexis W Killam, MD HWP/MODL /[id number]
[2019-08-10 04:00] VITALS: BP 113/56
[2019-08-10 06:45] LABS: EOSINOPHILS % 1.4 % (0.0-6.0); HEMATOCRIT 31.1 % (34.2-44.1); HEMOGLOBIN 9.6 g/dL (12.0-16.0); LYMPHOCYTES # (AUTO) 0.9 (1.0-3.2); LYMPHOCYTES % 32.2 % (18.0-39.1); MEAN CORPUSCULAR HEMOGLOBIN 24.9 pg (28-32); MEAN CORPUSCULAR HGB CONC 30.9 g/dL (31-35); MEAN CORPUSCULAR VOLUME 80.8 fL (81-99); MONOCYTES # (AUTO) 0.4 (0.2-0.8); MONOCYTES % 13.1 % (4.4-11.3); NEUTROPHILS # (AUTO) 1.5 (2.1-6.9); NEUTROPHILS % 53.3 % (38.7-80.0); PLATELET COUNT 114 x10e3/uL (140-360); RED BLOOD COUNT 3.85 x10e6/uL (3.6-5.1); RED CELL DISTRIBUTION WIDTH 15.3 % (11.7-14.4)
--- NOTE | 2019-08-10 06:46 | NUR ---
Received bedside shift report from off going nurse. Patient is resting in bed, no s/s of distress noted, denies pain or discomfort. Call light within reach. Bed in the lowest position.
[2019-08-10 07:07] LABS: ALANINE AMINOTRANSFERASE 10 IU/L (0-55); ALBUMIN 3.2 g/dL (3.5-5.0); ALBUMIN/GLOBULIN RATIO 1.3 (0.8-2.0); ALKALINE PHOSPHATASE 49 IU/L (40-150); ANION GAP 10.5 mmol/L (8-16); BLOOD UREA NITROGEN 11 mg/dL (7-26); BUN/CREATININE RATIO 13 (6-25); CALCIUM 8.8 mg/dL (8.4-10.2); CARBON DIOXIDE 22 mmol/L (22-29); CHLORIDE 114 mmol/L (98-107); CREATININE, SERUM 0.82 mg/dL (0.57-1.11); EST GLOMERULAR FILTRATION RATE > 60 ML/MIN (60-); GLUCOSE 95 mg/dL (74-118); MAGNESIUM 2.1 MG/DL (1.3-2.1); POTASSIUM 3.5 mmol/L (3.5-5.1); SODIUM 143 mmol/L (136-145)
--- NOTE | 2019-08-10 07:27 | NUR ---
patient endorsed to next shift for continuity of care.
[2019-08-10 07:35] VITALS: BP 123/57
[2019-08-10 07:44] VITALS: BP 123/57
[2019-08-10] MEDS: PANTOPRAZOLE SOD 40 MG TABEC PO SCH (08:30)
[2019-08-10] MEDS: ASPIRIN 81 MG CHEW TAB PO SCH (08:41)
[2019-08-10] MEDS: DOCUSATE SODIUM 100 MG CAP PO SCH (08:41)
[2019-08-10] MEDS: POTASSIUM CHLORIDE 10MEQ EA PO SCH (08:42)
[2019-08-10] MEDS: LINACLOTIDE 145 MCG CAPSULE PO SCH (08:42)
[2019-08-10] MEDS: ISOSORBIDE MONONITRATE 30 MG TAB CR PO SCH (08:43)
[2019-08-10] MEDS: NIFEDIPINE CR 30 MG TAB PO SCH (08:43)
[2019-08-10] MEDS: SIMVASTATIN 40 MG TAB PO SCH (08:44)
[2019-08-10] MEDS: METOCLOPRAMIDE HCL 10 MG TAB PO SCH (08:44)
[2019-08-10] MEDS: VALACYCLOVIR HCL 500 MG TAB PO SCH (08:44)
[2019-08-10] MEDS: LOSARTAN POTASSIUM 100 MG TAB PO SCH (08:44)
[2019-08-10] MEDS ORDERED: FERROUS SULFATE 325 MG TAB PO SCH (09:00)
[2019-08-10 10:03] LABS: PLATELET MORPHOLOGY COMMENT NORMAL
[2019-08-10 11:27] VITALS: BP 121/56
[2019-08-10] MEDS ORDERED: BACTRIM DS TAB1 EACH PO (12:34)
[2019-08-10] MEDS: CEFTRIAXONE SOD 1 GM/NS 50 ML 50 ML IV SCH (13:40)
--- NOTE | 2019-08-10 14:56 | NUR ---
RECEIVED DISCHARGE ORDER FROM STAS FERNÁNDEZ. PATIENT IS IN STABLE CONDITION. IV LINE TO LEFT HAND DISCONTINUED WITH TIP INTACT, PRESSURE APPLIED TO SITE, NO BLEEDING NOTED. DISCHARGE TEACHING PROVIDED TO PATIENT, SHE VERBALIZED UNDERSTANDING. DISCHARGE FOLDER WITH PAPERWORK AND PRESCRIPTIONS ON HAND. ALL PERSONAL ITEMS ON HAND. PATIENT ACCOMPANIED TO PRIVATE AUTO VIA WHEELCHAIR BY STAFF.
[2019-08-10 20:10] VITALS: BP 108/45
--- NOTE | 2019-08-11 02:35 | Discharge Summary ---
ADMISSION DIAGNOSES: 1. Abdominal pain. 2. Urinary tract infection, present on admission. 3. Dehydration. 4. Hypokalemia. 5. Diarrhea. 6. Hypertension. 7. Gastroesophageal reflux disease. DISCHARGE DIAGNOSES: 1. Abdominal pain. 2. Urinary tract infection, present on admission. 3. Dehydration. 4. Hypokalemia. 5. Diarrhea. 6. Hypertension. 7. Gastroesophageal reflux disease. 8. Escherichia coli and Proteus mirabilis of urine, present on admission. HISTORY: Hypertension, anemia, GERD, hyperlipidemia, insomnia, hard of hearing, using bilateral hearing aids. SURGICAL HISTORY: Bilateral 1st and 5th digit toenail removal, bone spur repair, cholecystectomy, hysterectomy, right knee replacement, bilateral cataract removal, left jaw repair, right breast lumpectomy, and bilateral carpal tunnel release. FAMILY HISTORY: The patient's mother had cancer. SOCIAL HISTORY: Noncontributory. HOSPITAL COURSE: A 73-year-old female, admits for upper epigastric abdominal pain for 4 days. She had vomiting on the night prior to admission and states she had diarrhea on 3 separate occasions. She states she gets worse with eating and she has associated generalized weakness. On admission, CT of the abdomen and pelvis was done, which showed no acute finding. Chest x-ray was negative. The patient is tolerating the diet and no longer having diarrhea. Urine culture came back positive for E coli and Proteus mirabilis. Blood cultures were negative. The patient was discharged home with new prescription for Bactrim for the UTI. The patient understands discharge instructions and agrees to plan. She will follow up with primary care in 1 to 2 weeks. Vital signs stable and the patient afebrile. Dictated by Gloria Katz NP Alexis Nguyễn MD MIGUELITO/MODL /[id number]
== END 2019-08-10 14:56 | disposition home or self-care (01) | DRG 690 ==
LOC: ER 09:20 → ERHOLD 12:35 → MED/SURG3 18:33
PROVIDERS: ADMIT Internal Medicine; ATTEND Internal Medicine
DX: N39.0 Urinary tract infection, site not specified (principal); E86.0 Dehydration; E87.6 Hypokalemia; R19.7 Diarrhea, unspecified; K21.9 Gastro-esophageal reflux disease without esophagitis; B96.20 Unspecified Escherichia coli [E. coli] as the cause of diseases classified elsewhere; B96.4 Proteus (mirabilis) (morganii) as the cause of diseases classified elsewhere; G47.00 Insomnia, unspecified; H91.90 Unspecified hearing loss, unspecified ear; Z96.651 Presence of right artificial knee joint; D69.6 Thrombocytopenia, unspecified; D63.8 Anemia in other chronic diseases classified elsewhere; D50.9 Iron deficiency anemia, unspecified; R00.1 Bradycardia, unspecified; I10 Essential (primary) hypertension; Z90.49 Acquired absence of other specified parts of digestive tract
CPT/HCPCS: 36415; 71045; 74177; 80053; 81001; 82550; 82553; 82607; 82728; 82746; 83540; 83690; 83735; 83880; 84100; 84466; 84484; 85025; 85610; 85730; 87040; 87086; 87186; 87635; 93005; 99284; J0360; J0696; J2270; J2405; J7030; J7050; Q9967

== ENCOUNTER 2020-12-27 11:33 | Observation (INO) | payer MEDICARE ==
[~2020-12-27] VITALS: Ht 162.6 cm; Wt 68.0 kg
[~2020-12-27 11:33] MED LIST changes: +BACTRIM DS TAB1 EACH PO; +VALACYCLOVIR500 MG PO
[2020-12-27 12:20] LABS: BASOPHILS % 0.3 % (0.0-1.0); EOSINOPHILS # (AUTO) 0.1 (0.0-0.4); HEMATOCRIT 36.1 % (34.2-44.1); HEMOGLOBIN 10.4 g/dL (12.0-16.0); LYMPHOCYTES # (AUTO) 1.7 (1.0-3.2); LYMPHOCYTES % 29.6 % (18.0-39.1); MEAN CORPUSCULAR HEMOGLOBIN 24.6 pg (28-32); MEAN CORPUSCULAR HGB CONC 28.8 g/dL (31-35); MEAN CORPUSCULAR VOLUME 85.5 fL (81-99); MONOCYTES # (AUTO) 0.6 (0.2-0.8); MONOCYTES % 10.6 % (4.4-11.3); NEUTROPHILS # (AUTO) 3.4 (2.1-6.9); NEUTROPHILS % 58.3 % (38.7-80.0); PLATELET COUNT 127 x10e3/uL (140-360); RED BLOOD COUNT 4.22 x10e6/uL (3.6-5.1)
[2020-12-27 12:41] LABS: ALBUMIN/GLOBULIN RATIO 1.4 (0.8-2.0); ANION GAP 15.4 mmol/L (8-16); CALCIUM 8.7 mg/dL (8.4-10.2); CREATININE, SERUM 0.99 mg/dL (0.57-1.11); INR 1.01; MAGNESIUM 1.7 MG/DL (1.3-2.1); POTASSIUM 3.4 mmol/L (3.5-5.1); PROTHROMBIN TIME 13.5 seconds (11.9-14.5)
[2020-12-27 12:42] LABS: PARTIAL THROMBOPLASTIN TIME 33.7 seconds (23.8-35.5)
[2020-12-27 13:00] LABS: CREATINE KINASE MB 5.2 ng/mL (0-5.0); THYROID STIMULATING HORMONE 1.168 uIU/mL (0.350-4.940)
[2020-12-27] MEDS ORDERED: ACETAMINOPHEN 325 MG TAB PO ONE (14:15)
[2020-12-27] MEDS ORDERED: ONDANSETRON HCL INJ 2MG/ML 2ML 2 MG/ML VIAL IV PRN (14:30)
[2020-12-27] MEDS ORDERED: SODIUM CHLORIDE 0.9% 1000ML 1,000 ML ONE (15:44)
[2020-12-27] MEDS: SODIUM CHLORIDE 0.9% 1000ML 1,000 ML IV SCH (15:45)
[2020-12-27 17:01] VITALS: BP 113/67
[2020-12-27 17:54] VITALS: BP 113/67
[2020-12-27 17:57] VITALS: BP 113/67
[2020-12-27] MEDS: ACETAMINOPHEN 325 MG TAB PO PRN (18:06)
[2020-12-27 20:00] VITALS: BP 120/58
[2020-12-27 21:26] VITALS: BP 120/58
[2020-12-28] VITALS (7 sets, daily range): BP systolic 121–139; BP diastolic 54–60
[2020-12-28] MEDS: SODIUM CHLORIDE 0.9% 1000ML 1,000 ML IV SCH (02:30)
[2020-12-28 06:26] LABS: BASOPHILS % 0.3 % (0.0-1.0); EOSINOPHILS # (AUTO) 0.1 (0.0-0.4); EOSINOPHILS % 2.5 % (0.0-6.0); LYMPHOCYTES # (AUTO) 1.5 (1.0-3.2); MEAN CORPUSCULAR HEMOGLOBIN 24.7 pg (28-32); MEAN CORPUSCULAR VOLUME 85.2 fL (81-99); MONOCYTES # (AUTO) 0.4 (0.2-0.8); NEUTROPHILS # (AUTO) 1.2 (2.1-6.9); NEUTROPHILS % 38.2 % (38.7-80.0); PLATELET COUNT 112 x10e3/uL (140-360); RED BLOOD COUNT 3.64 x10e6/uL (3.6-5.1); RED CELL DISTRIBUTION WIDTH 14.9 % (11.7-14.4)
[2020-12-28 07:02] LABS: ALBUMIN 3.2 g/dL (3.5-5.0); ALBUMIN/GLOBULIN RATIO 1.3 (0.8-2.0); ANION GAP 8.9 mmol/L (8-16); CALCIUM 8.2 mg/dL (8.4-10.2); CHOL/HDL RATIO 2.5 (3.0-3.6); CREATININE, SERUM 0.76 mg/dL (0.57-1.11); POTASSIUM 3.9 mmol/L (3.5-5.1)
[2020-12-28 07:43] LABS: CREATINE KINASE MB 7.1 ng/mL (0-5.0)
[2020-12-28] MEDS: PANTOPRAZOLE SOD 40 MG TABEC PO SCH (09:54)
[2020-12-28] MEDS: ASPIRIN 81 MG CHEW TAB PO SCH (09:54)
[2020-12-28] MEDS: DOCUSATE SODIUM 100 MG CAP PO SCH (09:54)
[2020-12-28] MEDS: FERROUS SULFATE 325 MG TAB PO SCH (09:54)
[2020-12-28] MEDS: VALACYCLOVIR HCL 500 MG TAB PO SCH (09:55)
[2020-12-28] MEDS: ACETAMINOPHEN 325 MG TAB PO PRN (12:08)
[2020-12-28] MEDS ORDERED: TRAZODONE HCL 50 MG TAB PO SCH (21:00)
[2020-12-28] MEDS ORDERED: SIMVASTATIN 40 MG TAB PO SCH (21:00)
[2020-12-29] VITALS: BP 146/64
[2020-12-29 04:00] VITALS: BP 141/85
[2020-12-29 05:04] LABS: BASOPHILS % 0.6 % (0.0-1.0); EOSINOPHILS # (AUTO) 0.1 (0.0-0.4); EOSINOPHILS % 2.6 % (0.0-6.0); HEMATOCRIT 34.8 % (34.2-44.1); HEMOGLOBIN 10.3 g/dL (12.0-16.0); LYMPHOCYTES # (AUTO) 1.7 (1.0-3.2); LYMPHOCYTES % 47.6 % (18.0-39.1); MEAN CORPUSCULAR HEMOGLOBIN 24.5 pg (28-32); MEAN CORPUSCULAR HGB CONC 29.6 g/dL (31-35); MEAN CORPUSCULAR VOLUME 82.7 fL (81-99); MONOCYTES # (AUTO) 0.5 (0.2-0.8); MONOCYTES % 13.3 % (4.4-11.3); NEUTROPHILS # (AUTO) 1.3 (2.1-6.9); NEUTROPHILS % 35.9 % (38.7-80.0); PLATELET COUNT 145 x10e3/uL (140-360); RED BLOOD COUNT 4.21 x10e6/uL (3.6-5.1); RED CELL DISTRIBUTION WIDTH 14.6 % (11.7-14.4)
[2020-12-29 05:33] LABS: ANION GAP 11.5 mmol/L (8-16); CALCIUM 9.1 mg/dL (8.4-10.2); CREATININE, SERUM 0.78 mg/dL (0.57-1.11); POTASSIUM 3.5 mmol/L (3.5-5.1)
[2020-12-29 07:25] LABS: EOSINOPHILS % (MANUAL) 3 % (0-7); LYMPHOCYTES % (MANUAL) 50 % (19-48); MONOCYTES % (MANUAL) 5 % (3.4-9.0); NEUTROPHILS % (MANUAL) 42 % (40-74); PLATELET ESTIMATE SLIGHTLY DECREASED; PLATELET MORPHOLOGY COMMENT NORMAL; RBC MORPHOLOGY COMMENT NORMAL
[2020-12-29 08:03] VITALS: BP 164/79
[2020-12-29 08:06] VITALS: BP 164/79
[2020-12-29] MEDS: ASPIRIN 81 MG CHEW TAB PO SCH (09:42)
[2020-12-29] MEDS: DOCUSATE SODIUM 100 MG CAP PO SCH (09:42)
[2020-12-29] MEDS: FERROUS SULFATE 325 MG TAB PO SCH (09:42)
[2020-12-29] MEDS: PANTOPRAZOLE SOD 40 MG TABEC PO SCH (09:42)
[2020-12-29] MEDS: VALACYCLOVIR HCL 500 MG TAB PO SCH (09:43)
[2020-12-29] MEDS ORDERED: CYANOCOBALAMIN INJ 1,000 MCG/ML VIAL IM NR (10:30)
[2020-12-29 12:00] VITALS: BP 141/67
== END 2020-12-29 13:25 | disposition home or self-care (01) ==
LOC: ER 11:41 → ERHOLD 14:18 → MED/SURG2 15:36
PROVIDERS: ADMIT Internal Medicine; ATTEND Internal Medicine
DX: I63.81 Other cerebral infarction due to occlusion or stenosis of small artery (principal); R29.810 Facial weakness; G83.21 Monoplegia of upper limb affecting right dominant side; I10 Essential (primary) hypertension; D64.9 Anemia, unspecified; K21.9 Gastro-esophageal reflux disease without esophagitis; E78.5 Hyperlipidemia, unspecified; Z88.0 Allergy status to penicillin; Z91.018 Allergy to other foods; Z20.822 Contact with and (suspected) exposure to COVID-19
CPT/HCPCS: 36415 ×3; 70450; 70551; 71045; 80048; 80053 ×2; 80061; 82550 ×2; 82553 ×2; 82607; 82746; 83735 ×2; 84443 ×2; 84484 ×2; 85025 ×3; 85610; 85651; 85730; 93005; 93306; 93880; 97161; 99251; 99284; G0378 ×3; J7030 ×2; S0164 ×2; U0002

== ENCOUNTER 2021-12-04 14:12 | Emergency (ER) | payer MEDICARE ==
[~2021-12-04] VITALS: Ht 167.6 cm; Wt 75.7 kg
[2021-12-04 14:51] LABS: BASOPHILS % 0.4 % (0.0-1.0); EOSINOPHILS % 0.2 % (0.0-6.0); HEMATOCRIT 32.8 % (34.2-44.1); HEMOGLOBIN 9.8 g/dL (12.0-16.0); LYMPHOCYTES # (AUTO) 0.7 (1.0-3.2); LYMPHOCYTES % 13.6 % (18.0-39.1); MEAN CORPUSCULAR HEMOGLOBIN 24.9 pg (28-32); MEAN CORPUSCULAR HGB CONC 29.9 g/dL (31-35); MEAN CORPUSCULAR VOLUME 83.2 fL (81-99); MONOCYTES # (AUTO) 0.5 (0.2-0.8); MONOCYTES % 9.4 % (4.4-11.3); PLATELET COUNT 187 x10e3/uL (140-360); RED BLOOD COUNT 3.94 x10e6/uL (3.6-5.1); RED CELL DISTRIBUTION WIDTH 15.4 % (11.7-14.4)
[2021-12-04 15:10] LABS: ALBUMIN 3.5 g/dL (3.5-5.0); ANION GAP 16.9 mmol/L (8-16); CALCIUM 9.2 mg/dL (8.4-10.2); CREATININE, SERUM 1.1 mg/dL (0.57-1.11); POTASSIUM 3.9 mmol/L (3.5-5.1)
[2021-12-04] MEDS ORDERED: BENZONATATE100 MG PO (17:47)
[2021-12-04 17:59] VITALS: BP 128/60
== END 2021-12-04 17:58 | disposition home or self-care (01) ==
LOC: ER 14:17
DX: R05.9 Cough, unspecified (principal); I50.9 Heart failure, unspecified; R73.9 Hyperglycemia, unspecified; I10 Essential (primary) hypertension; D64.9 Anemia, unspecified; E78.5 Hyperlipidemia, unspecified; K21.9 Gastro-esophageal reflux disease without esophagitis; G47.00 Insomnia, unspecified; Z20.822 Contact with and (suspected) exposure to COVID-19
CPT/HCPCS: 36415; 71046; 80053; 83880; 85025; 99283; U0002

== ENCOUNTER 2022-01-07 14:47 | Emergency (ER) | payer MEDICARE ==
[~2022-01-07] VITALS: Ht 167.6 cm; Wt 75.7 kg
[~2022-01-07 14:47] MED LIST changes: +BENZONATATE100 MG PO
[2022-01-07 15:23] LABS: BASOPHILS % 0.3 % (0.0-1.0); EOSINOPHILS # (AUTO) 0.1 (0.0-0.4); EOSINOPHILS % 1.5 % (0.0-6.0); HEMATOCRIT 35.1 % (34.2-44.1); LYMPHOCYTES % 31.8 % (18.0-39.1); MEAN CORPUSCULAR HGB CONC 28.5 g/dL (31-35); MEAN CORPUSCULAR VOLUME 87.8 fL (81-99); MONOCYTES # (AUTO) 0.4 (0.2-0.8); MONOCYTES % 11.7 % (4.4-11.3); NEUTROPHILS # (AUTO) 1.8 (2.1-6.9); NEUTROPHILS % 54.7 % (38.7-80.0); PLATELET COUNT 162 x10e3/uL (140-360); RED CELL DISTRIBUTION WIDTH 15.2 % (11.7-14.4)
[2022-01-07 15:38] LABS: ALBUMIN/GLOBULIN RATIO 1.2 (0.8-2.0); CALCIUM 9.6 mg/dL (8.4-10.2); CREATININE, SERUM 1.1 mg/dL (0.57-1.11)
[2022-01-07 16:10] LABS: COLOR,URINE YELLOW (YELLOW)
[2022-01-07 16:11] LABS: CLARITY,URINE CLEAR (CLEAR); KETONES,URINE NEGATIVE (NEGATIVE); LEUKOCYTE ESTERASE ,URINE NEGATIVE (NEGATIVE); NITRITE,URINE NEGATIVE (NEGATIVE); PROTEIN,URINE DIPSTICK NEGATIVE (NEGATIVE); URINE UROBILINOGEN 0.2 mg/dL (0.2 - 1)
[2022-01-07 16:21] LABS: BACTERIA,URINE FEW /HPF
[2022-01-07 16:22] LABS: EPITHELIAL CELLS,URINE FEW /LPF; MUCUS,URINE FEW (RARE); TRANSITIONAL EPI CELLS,URINE FEW
[2022-01-07] MEDS ORDERED: FUROSEMIDE INJ 10 MG/ML 4 ML VIAL IV ONE (17:00)
== END 2022-01-07 18:57 | disposition home or self-care (01) ==
LOC: ER 16:00
DX: R60.9 Edema, unspecified (principal); I10 Essential (primary) hypertension; E78.5 Hyperlipidemia, unspecified; D64.9 Anemia, unspecified; K21.9 Gastro-esophageal reflux disease without esophagitis; G47.00 Insomnia, unspecified; Z20.822 Contact with and (suspected) exposure to COVID-19; R94.31 Abnormal electrocardiogram [ECG] [EKG]; Z86.73 Personal history of transient ischemic attack (TIA), and cerebral infarction without residual deficits; Z96.651 Presence of right artificial knee joint
CPT/HCPCS: 36415; 71046; 80053; 81001; 82550; 82553; 83880; 84484; 85025; 93005; 99284; J1940; U0002

== ENCOUNTER 2022-05-02 22:07 | Emergency (ER) | payer MEDICARE ==
[~2022-05-02] VITALS: Ht 167.6 cm; Wt 75.7 kg
[2022-05-02] MEDS ORDERED: SODIUM CHLORIDE FLUSH 10 ML SYR IV PRN (22:28)
[2022-05-02] MEDS ORDERED: ONDANSETRON HCL INJ 2MG/ML 2ML 2 MG/ML VIAL IV STA (22:35)
[2022-05-02] MEDS ORDERED: ONDANSETRON HCL INJ 2MG/ML 2ML 2 MG/ML VIAL ONE (22:36)
[2022-05-02] MEDS ORDERED: FENTANYL CITRATE/PF 100MCG/2 ML INJ ONE (22:37)
[2022-05-02 22:42] LABS: BASOPHILS % 0.3 % (0.0-1.0); EOSINOPHILS % 0.8 % (0.0-6.0); HEMATOCRIT 32.9 % (34.2-44.1); HEMOGLOBIN 9.1 g/dL (12.0-16.0); LYMPHOCYTES # (AUTO) 0.8 (1.0-3.2); LYMPHOCYTES % 21.5 % (18.0-39.1); MEAN CORPUSCULAR HEMOGLOBIN 23.9 pg (28-32); MEAN CORPUSCULAR HGB CONC 27.7 g/dL (31-35); MEAN CORPUSCULAR VOLUME 86.4 fL (81-99); MONOCYTES # (AUTO) 0.5 (0.2-0.8); MONOCYTES % 12.8 % (4.4-11.3); NEUTROPHILS # (AUTO) 2.4 (2.1-6.9); NEUTROPHILS % 64.3 % (38.7-80.0); PLATELET COUNT 181 x10e3/uL (140-360); RED BLOOD COUNT 3.81 x10e6/uL (3.6-5.1); RED CELL DISTRIBUTION WIDTH 15.5 % (11.7-14.4)
[2022-05-02] MEDS ORDERED: FENTANYL CITRATE/PF 100MCG/2 ML INJ IV ONE (22:45)
[2022-05-02 22:52] LABS: INR 1.09; PROTHROMBIN TIME 14.3 seconds (11.9-14.5)
[2022-05-02 22:53] LABS: PARTIAL THROMBOPLASTIN TIME 33.4 seconds (23.8-35.5)
[2022-05-02 22:59] LABS: ANION GAP 14.2 mmol/L (8-16); CALCIUM 10.1 mg/dL (8.4-10.2); CREATININE, SERUM 0.96 mg/dL (0.57-1.11); POTASSIUM 4.2 mmol/L (3.5-5.1)
[2022-05-03] MEDS ORDERED: FUROSEMIDE INJ 10 MG/ML 4 ML VIAL IV ONE (01:00)
[2022-05-03 02:23] VITALS: BP 120/72
[2022-06-09] MEDS ORDERED: MORPHINE SULFAT30 M2 PO (16:24)
[2022-06-09] MEDS ORDERED: LINZESS PO (16:24)
== END 2022-05-03 02:20 | disposition home or self-care (01) ==
LOC: ER 22:21
DX: R60.9 Edema, unspecified (principal); I10 Essential (primary) hypertension; E78.5 Hyperlipidemia, unspecified; D64.9 Anemia, unspecified; K21.9 Gastro-esophageal reflux disease without esophagitis; Z86.73 Personal history of transient ischemic attack (TIA), and cerebral infarction without residual deficits
CPT/HCPCS: 36415; 71045; 73552; 73562; 73590; 80053; 83880; 84484; 85025; 85610; 85730; 93971; 99284; J1940; J2405; J3010

== ENCOUNTER 2023-02-17 22:29 | Inpatient (IN) | payer MEDICARE ==
[~2023-02-17] VITALS: Ht 167.6 cm; Wt 75.7 kg
[~2023-02-17 22:29] MED LIST changes: +MORPHINE SULFAT30 M2 PO
[2023-02-17] MEDS ORDERED: ONDANSETRON HCL INJ 2MG/ML 2ML 2 MG/ML VIAL IV STA (23:01)
[2023-02-17 23:16] LABS: BASOPHILS % 0.4 % (0.0-1.0); EOSINOPHILS % 1.2 % (0.0-6.0); HEMATOCRIT 34.9 % (34.2-44.1); HEMOGLOBIN 10.8 g/dL (12.0-16.0); LYMPHOCYTES % 40.8 % (18.0-39.1); MEAN CORPUSCULAR HEMOGLOBIN 24.5 pg (28-32); MEAN CORPUSCULAR HGB CONC 30.9 g/dL (31-35); MEAN CORPUSCULAR VOLUME 79.1 fL (81-99); MONOCYTES # (AUTO) 0.4 (0.2-0.8); MONOCYTES % 15.7 % (4.4-11.3); NEUTROPHILS # (AUTO) 1.1 (2.1-6.9); NEUTROPHILS % 41.9 % (38.7-80.0); PLATELET COUNT 123 x10e3/uL (140-360); RED BLOOD COUNT 4.41 x10e6/uL (3.6-5.1); RED CELL DISTRIBUTION WIDTH 14.9 % (11.7-14.4); WHITE BLOOD COUNT 2.55 x10e3/uL (4.8-10.8)
[2023-02-17 23:32] LABS: ALBUMIN 3.8 g/dL (3.5-5.0); ALBUMIN/GLOBULIN RATIO 1.3 (0.8-2.0); ANION GAP 13.5 mmol/L (8-16); BILIRUBIN,TOTAL 0.7 mg/dL (0.2-1.2); CALCIUM 9.1 mg/dL (8.4-10.2); CREATININE, SERUM 1.02 mg/dL (0.57-1.11); POTASSIUM 3.5 mmol/L (3.5-5.1); TOTAL PROTEIN 6.8 g/dL (6.5-8.1)
[2023-02-17 23:37] LABS: CLARITY,URINE CLEAR (CLEAR); COLOR,URINE YELLOW (YELLOW); GLUCOSE, URINE NEGATIVE (NEGATIVE); KETONES,URINE NEGATIVE (NEGATIVE); LEUKOCYTE ESTERASE ,URINE NEGATIVE (NEGATIVE); NITRITE,URINE NEGATIVE (NEGATIVE); PH,URINE 5.5 (5 - 7); PROTEIN,URINE DIPSTICK 1+ (NEGATIVE)
[2023-02-17 23:38] LABS: BILIRUBIN,URINE NEGATIVE (NEGATIVE); URINE UROBILINOGEN 0.2 mg/dL (0.2 - 1)
[2023-02-17] MEDS ORDERED: IOPAMIDOL 370 MG/ML 100 ML INFUS..BTL INJ ONE (23:59)
[2023-02-18] VITALS (9 sets, daily range): BP systolic 104–146; BP diastolic 48–62; PULSE 51–72; RESP 17–18; TEMP 97.2–98.6; O2SAT 97–100
[2023-02-18] MEDS ORDERED: ONDANSETRON HCL INJ 2MG/ML 2ML 2 MG/ML VIAL IV PRN
[2023-02-18] MEDS ORDERED: SODIUM CHLORIDE 0.9% 1000ML 1,000 ML IV ONE
[2023-02-18 00:23] LABS: BACTERIA,URINE MANY /HPF; EPITHELIAL CELLS,URINE FEW /LPF; RBC,URINE 0-5 /HPF (0-5)
[2023-02-18] MEDS: Morphine 2mg Syringe 2 MG/ML SYR IV PRN ×4 (02:22→17:28)
[2023-02-18 06:26] LABS: BASOPHILS % 0.6 % (0.0-1.0); EOSINOPHILS # (AUTO) 0.1 (0.0-0.4); EOSINOPHILS % 1.5 % (0.0-6.0); HEMATOCRIT 33.8 % (34.2-44.1); HEMOGLOBIN 10.2 g/dL (12.0-16.0); LYMPHOCYTES # (AUTO) 1.4 (1.0-3.2); LYMPHOCYTES % 41.3 % (18.0-39.1); MEAN CORPUSCULAR HEMOGLOBIN 24.2 pg (28-32); MEAN CORPUSCULAR HGB CONC 30.2 g/dL (31-35); MEAN CORPUSCULAR VOLUME 80.3 fL (81-99); MONOCYTES # (AUTO) 0.5 (0.2-0.8); MONOCYTES % 14.4 % (4.4-11.3); NEUTROPHILS # (AUTO) 1.4 (2.1-6.9); NEUTROPHILS % 42.2 % (38.7-80.0); PLATELET COUNT 112 x10e3/uL (140-360); RED BLOOD COUNT 4.21 x10e6/uL (3.6-5.1); WHITE BLOOD COUNT 3.27 x10e3/uL (4.8-10.8)
[2023-02-18 06:47] LABS: ALBUMIN 3.5 g/dL (3.5-5.0); ALBUMIN/GLOBULIN RATIO 1.3 (0.8-2.0); ANION GAP 10.7 mmol/L (8-16); BILIRUBIN,TOTAL 0.8 mg/dL (0.2-1.2); CALCIUM 8.7 mg/dL (8.4-10.2); CREATININE, SERUM 0.88 mg/dL (0.57-1.11); POTASSIUM 3.7 mmol/L (3.5-5.1); TOTAL PROTEIN 6.1 g/dL (6.5-8.1)
[2023-02-18 07:19] LABS: TROPONIN I 0.014 ng/mL (0-0.300)
[2023-02-18] MEDS ORDERED: METOPROLOL TARTRATE INJ 1 MG/ML VIAL IV PRN (10:15)
[2023-02-18] MEDS ORDERED: DOCUSATE SODIUM 100 MG CAP PO PRN (10:15)
[2023-02-18] MEDS ORDERED: MELATONIN 3 MG TAB PO PRN (10:15)
[2023-02-18] MEDS ORDERED: ACETAMINOPHEN 325 MG TAB PO PRN (10:15)
[2023-02-18] MEDS ORDERED: ALBUTEROL/IPRATROPIUM 3 ML NEB NEB PRN (10:15)
[2023-02-18] MEDS ORDERED: SIMETHICONE 80 MG CHEW PO PRN (10:15)
[2023-02-18 15:12] LABS: CREATINE KINASE 103 IU/L (29-168)
[2023-02-18 15:23] LABS: TROPONIN I < 0.001 ng/mL (0-0.300)
[2023-02-18 15:52] LABS: FREE T4 (FREE THYROXINE) 1.14 ng/dL (0.8-1.8); THYROID STIMULATING HORMONE 1.134 uIU/mL (0.350-4.940)
[2023-02-18] MEDS: SODIUM CHLORIDE 0.9% 1000ML 1,000 ML IV SCH (18:43)
[2023-02-18 19:47] LABS: % IRON SATURATION 21 % (15-50); IRON 50 ug/dL (50-170); TOTAL IRON BINDING CAPACITY 237 ug/dL (261-478); TRANSFERRIN 169 mg/dL (180-382)
[2023-02-18] MEDS: TRAZODONE HCL 50 MG TAB PO SCH (21:11)
[2023-02-18] MEDS: SIMVASTATIN 40 MG TAB PO SCH (21:11)
[2023-02-19] VITALS (12 sets, daily range): BP systolic 122–155; BP diastolic 45–72; PULSE 50–60; RESP 16–20; TEMP 98–99.1; O2SAT 97–100
[2023-02-19] MEDS: Morphine 2mg Syringe 2 MG/ML SYR IV PRN ×4 (01:02→20:21)
[2023-02-19 04:57] LABS: BASOPHILS % 0.5 % (0.0-1.0); EOSINOPHILS # (AUTO) 0.1 (0.0-0.4); EOSINOPHILS % 3.9 % (0.0-6.0); HEMATOCRIT 31.7 % (34.2-44.1); HEMOGLOBIN 9.7 g/dL (12.0-16.0); LYMPHOCYTES # (AUTO) 0.9 (1.0-3.2); LYMPHOCYTES % 46.1 % (18.0-39.1); MEAN CORPUSCULAR HEMOGLOBIN 24.8 pg (28-32); MEAN CORPUSCULAR HGB CONC 30.6 g/dL (31-35); MEAN CORPUSCULAR VOLUME 81.1 fL (81-99); MONOCYTES # (AUTO) 0.3 (0.2-0.8); MONOCYTES % 14.7 % (4.4-11.3); NEUTROPHILS # (AUTO) 0.7 (2.1-6.9); NEUTROPHILS % 34.3 % (38.7-80.0); RED BLOOD COUNT 3.91 x10e6/uL (3.6-5.1); RED CELL DISTRIBUTION WIDTH 15.1 % (11.7-14.4); WHITE BLOOD COUNT 2.04 x10e3/uL (4.8-10.8)
[2023-02-19 05:18] LABS: PLATELET COUNT 86 x10e3/uL (140-360)
[2023-02-19 05:26] LABS: INR 1.08; PROTHROMBIN TIME 14.2 seconds (11.9-14.5)
[2023-02-19 07:52] LABS: ANION GAP 14.2 mmol/L (8-16); CALCIUM 8.4 mg/dL (8.4-10.2); CREATININE, SERUM 0.85 mg/dL (0.57-1.11); POTASSIUM 4.2 mmol/L (3.5-5.1)
[2023-02-19] MEDS: SODIUM CHLORIDE 0.9% 1000ML 1,000 ML IV SCH ×2 (08:15→22:40)
[2023-02-19] MEDS: ISOSORBIDE MONONITRATE 30 MG TAB CR PO SCH (08:17)
[2023-02-19] MEDS ORDERED: PNEUMOCOCCAL VACCINE POLYVALENT 23 MCG/0.5 ML VIAL IM SCH (10:00)
[2023-02-19] MEDS: SIMVASTATIN 40 MG TAB PO SCH (20:19)
[2023-02-19] MEDS: TRAZODONE HCL 50 MG TAB PO SCH (20:20)
[2023-02-19] MEDS ORDERED: POLYETHYLENE GLYCOL 3350 17 GM PACK PO ONE (22:45)
[2023-02-19] MEDS ORDERED: BISACODYL 5 MG TAB EC PO ONE (23:00)
[2023-02-20] VITALS (10 sets, daily range): BP systolic 128–172; BP diastolic 53–94; PULSE 53–65; RESP 16–20; TEMP 98.3–100.3; O2SAT 98–100
[2023-02-20] MEDS: Morphine 2mg Syringe 2 MG/ML SYR IV PRN ×4 (04:59→21:20)
[2023-02-20 05:05] LABS: BASOPHILS % 0.6 % (0.0-1.0); EOSINOPHILS # (AUTO) 0.1 (0.0-0.4); EOSINOPHILS % 2.8 % (0.0-6.0); HEMATOCRIT 32.7 % (34.2-44.1); HEMOGLOBIN 10.1 g/dL (12.0-16.0); LYMPHOCYTES # (AUTO) 1.1 (1.0-3.2); LYMPHOCYTES % 32.2 % (18.0-39.1); MEAN CORPUSCULAR HEMOGLOBIN 24.4 pg (28-32); MEAN CORPUSCULAR HGB CONC 30.9 g/dL (31-35); MONOCYTES # (AUTO) 0.5 (0.2-0.8); MONOCYTES % 15.6 % (4.4-11.3); NEUTROPHILS # (AUTO) 1.6 (2.1-6.9); NEUTROPHILS % 48.8 % (38.7-80.0); PLATELET COUNT 128 x10e3/uL (140-360); RED BLOOD COUNT 4.14 x10e6/uL (3.6-5.1); RED CELL DISTRIBUTION WIDTH 14.8 % (11.7-14.4); WHITE BLOOD COUNT 3.26 x10e3/uL (4.8-10.8)
[2023-02-20 05:28] LABS: ANION GAP 12.1 mmol/L (8-16); CALCIUM 9.1 mg/dL (8.4-10.2); CREATININE, SERUM 0.85 mg/dL (0.57-1.11); POTASSIUM 4.1 mmol/L (3.5-5.1)
[2023-02-20 06:01] LABS: TROPONIN I 0.005 ng/mL (0-0.300)
[2023-02-20] MEDS: POLYETHYLENE GLYCOL 3350 17 GM PACK PO SCH ×2 (09:00→17:00)
[2023-02-20] MEDS: ISOSORBIDE MONONITRATE 30 MG TAB CR PO SCH (09:17)
[2023-02-20] MEDS: SODIUM CHLORIDE 0.9% 1000ML 1,000 ML IV SCH (10:15)
[2023-02-20] MEDS ORDERED: ONDANSETRON HCL 4 MG ORAL DISINTEGRATING TAB PO PRN (11:30)
[2023-02-20] MEDS ORDERED: ONDANSETRON ODT4 MG PO (13:33)
[2023-02-20] MEDS ORDERED: SODIUM BICARBO650 MG PO (13:36)
[2023-02-20] MEDS: SODIUM BICARBONATE 650 MG TAB PO SCH ×2 (14:50→21:16)
[2023-02-20] MEDS: SIMVASTATIN 40 MG TAB PO SCH (21:16)
[2023-02-20] MEDS: TRAZODONE HCL 50 MG TAB PO SCH (21:16)
[2023-02-20] MEDS ORDERED: LEVOFLOXACIN 500MG/D5W 100ML 100 ML IV SCH (23:45)
[2023-02-20] MEDS ORDERED: LEVOFLOXACIN 500MG/D5W 100ML 100 ML IV ONE (23:45)
[2023-02-20] MEDS ORDERED: METRONIDAZOLE 500MG/NS 100ML 100 ML IV STA (23:46)
[2023-02-21] VITALS (9 sets, daily range): BP systolic 150–183; BP diastolic 73–97; PULSE 52–60; RESP 18–20; TEMP 98–99.8; O2SAT 98–100
[2023-02-21] MEDS: SODIUM CHLORIDE 0.9% 1000ML 1,000 ML IV SCH ×2 (00:11→13:14)
[2023-02-21] MEDS ORDERED: LEVOFLOXACIN 500 MG TAB PO ONE (01:30)
[2023-02-21] MEDS ORDERED: METRONIDAZOLE 500 MG TAB PO ONE (01:30)
[2023-02-21] MEDS: Morphine 2mg Syringe 2 MG/ML SYR IV PRN ×4 (01:57→21:47)
[2023-02-21] MEDS: SODIUM BICARBONATE 650 MG TAB PO SCH ×3 (05:35→21:11)
[2023-02-21] MEDS ORDERED: METRONIDAZOLE 500MG/NS 100ML 100 ML IV SCH (06:00)
[2023-02-21 06:29] LABS: BASOPHILS % 0.4 % (0.0-1.0); EOSINOPHILS # (AUTO) 0.1 (0.0-0.4); EOSINOPHILS % 4.8 % (0.0-6.0); HEMATOCRIT 31.2 % (34.2-44.1); HEMOGLOBIN 9.7 g/dL (12.0-16.0); LYMPHOCYTES # (AUTO) 0.8 (1.0-3.2); LYMPHOCYTES % 35.5 % (18.0-39.1); MEAN CORPUSCULAR HEMOGLOBIN 24.5 pg (28-32); MEAN CORPUSCULAR HGB CONC 31.1 g/dL (31-35); MEAN CORPUSCULAR VOLUME 78.8 fL (81-99); MONOCYTES # (AUTO) 0.5 (0.2-0.8); MONOCYTES % 19.5 % (4.4-11.3); NEUTROPHILS # (AUTO) 0.9 (2.1-6.9); NEUTROPHILS % 39.8 % (38.7-80.0); PLATELET COUNT 111 x10e3/uL (140-360); RED BLOOD COUNT 3.96 x10e6/uL (3.6-5.1); RED CELL DISTRIBUTION WIDTH 14.8 % (11.7-14.4); WHITE BLOOD COUNT 2.31 x10e3/uL (4.8-10.8)
[2023-02-21 07:03] LABS: ANION GAP 11.7 mmol/L (8-16); CALCIUM 8.9 mg/dL (8.4-10.2); CREATININE, SERUM 0.85 mg/dL (0.57-1.11); POTASSIUM 3.7 mmol/L (3.5-5.1)
[2023-02-21] MEDS: ISOSORBIDE MONONITRATE 30 MG TAB CR PO SCH (08:48)
[2023-02-21] MEDS: POLYETHYLENE GLYCOL 3350 17 GM PACK PO SCH ×2 (08:51→17:00)
[2023-02-21] MEDS ORDERED: IOPAMIDOL 370 MG/ML 100 ML INFUS..BTL INJ ONE (10:22)
[2023-02-21 10:54] LABS: BASOPHILS % (MANUAL) 1 % (0-1.5); LYMPHOCYTES % (MANUAL) 33 % (19-48); MONOCYTES % (MANUAL) 17 % (3.4-9.0); NEUTROPHILS % (MANUAL) 47 % (40-74); REACTIVE LYMPHOCYTES 2
[2023-02-21 10:56] LABS: HYPOCHROMASIA SLIGHT
[2023-02-21 10:57] LABS: PLATELET ESTIMATE ADEQUATE; PLATELET MORPHOLOGY COMMENT NORMAL; RBC MORPHOLOGY COMMENT ABNORMAL
[2023-02-21 10:59] LABS: OVALOCYTES FEW
[2023-02-21] MEDS: HYDRALAZINE HCL 25 MG TAB PO SCH ×3 (11:04→21:12)
[2023-02-21] MEDS: METRONIDAZOLE 500MG/NS 100ML 100 ML IV SCH ×3 (11:04→21:12)
[2023-02-21] MEDS ORDERED: LEVOFLOXACIN 500MG/D5W 100ML 100 ML IV SCH (14:00)
[2023-02-21] MEDS: SIMVASTATIN 40 MG TAB PO SCH (21:11)
[2023-02-21] MEDS: TRAZODONE HCL 50 MG TAB PO SCH (21:11)
[2023-02-22] VITALS: BP 173/85; PULSE 54; RESP 18; TEMP 99.3; O2SAT 100
[2023-02-22 04:00] VITALS: BP 162/88; PULSE 59; RESP 18; TEMP 97.6; O2SAT 99
[2023-02-22] MEDS ORDERED: LEVOFLOXACIN250 MG PO (06:31)
[2023-02-22] MEDS ORDERED: ONDANSETRON ODT4 MG PO (06:31)
[2023-02-22] MEDS ORDERED: SENNA LAX8.6 MG PO (06:31)
[2023-02-22] MEDS ORDERED: METRONIDAZOLE500 MG PO (06:31)
[2023-02-22] MEDS: SODIUM CHLORIDE 0.9% 1000ML 1,000 ML IV SCH (06:33)
[2023-02-22] MEDS: METRONIDAZOLE 500MG/NS 100ML 100 ML IV SCH (06:33)
[2023-02-22] MEDS: SODIUM BICARBONATE 650 MG TAB PO SCH (06:39)
[2023-02-22] MEDS: HYDRALAZINE HCL 25 MG TAB PO SCH (06:40)
[2023-02-22 07:35] VITALS: PULSE 55; RESP 18; O2SAT 96
[2023-02-22] MEDS: ISOSORBIDE MONONITRATE 30 MG TAB CR PO SCH (09:00)
[2023-02-22] MEDS: POLYETHYLENE GLYCOL 3350 17 GM PACK PO SCH (09:00)
[2023-02-22 09:44] VITALS: BP 162/88; PULSE 55; RESP 18; TEMP 97.6; O2SAT 96
[2023-02-23 06:39] LABS: VANILLYLMANDELIC ACID URINE 1.5 mg/L (Undefined)
[2023-02-23 18:10] LABS: NORMETANEPHRINE, 24h URINE 128 ug/24 hr (131-612)
[2023-02-23 19:13] LABS: METANEPHRINE, 24h URINE 76 ug/L (Undefined); METANEPHRINE, TOTAL 24h URINE 152 ug/24 hr (36-209)
== END 2023-02-22 10:35 | disposition home or self-care (01) | DRG 439 ==
LOC: ER 22:43 → ERHOLD 02-18 00:06 → MED/SURG 02-18 01:21
PROVIDERS: ADMIT Internal Medicine; ATTEND Internal Medicine
DX: K85.90 Acute pancreatitis without necrosis or infection, unspecified (principal); D61.818 Other pancytopenia; N39.0 Urinary tract infection, site not specified; K86.2 Cyst of pancreas; K57.92 Diverticulitis of intestine, part unspecified, without perforation or abscess without bleeding; E27.8 Other specified disorders of adrenal gland; R91.1 Solitary pulmonary nodule; I10 Essential (primary) hypertension; K21.9 Gastro-esophageal reflux disease without esophagitis; K59.09 Other constipation; E78.5 Hyperlipidemia, unspecified; D64.9 Anemia, unspecified; G89.29 Other chronic pain; H91.90 Unspecified hearing loss, unspecified ear; Z96.651 Presence of right artificial knee joint; R20.2 Paresthesia of skin; G47.00 Insomnia, unspecified; Z86.73 Personal history of transient ischemic attack (TIA), and cerebral infarction without residual deficits; Z90.49 Acquired absence of other specified parts of digestive tract; Z79.82 Long term (current) use of aspirin; Z20.822 Contact with and (suspected) exposure to COVID-19
CPT/HCPCS: 36415; 71045; 74177; 76700; 80048; 80053; 81001; 82530; 82550; 82607; 82746; 83540; 83690; 83835; 83880; 84439; 84443; 84466; 84484; 84585; 85025; 85045; 85610; 86301; 93005; 94799; 99284; J1956; J2270; J2405; J7030; Q9967; U0002